=== PATIENT | male | born 1955 | race Caucasian/White ===

== ENCOUNTER 2016-07-27 02:57 | Emergency (ER) | payer OTHER, BC ==
[~2016-07-27] VITALS: Ht 165.1 cm; Wt 65.8 kg
[~2016-07-27 02:57] MED LIST: COR12.5 PO; GABA-533 PO; LISI10TA5 PO
[2016-07-27 03:00] VITALS: BP 84/28; PULSE 88; RESP 14; TEMP 98.9; O2SAT 100
--- NOTE | 2016-07-27 03:19 | NUR ---
ER at bedside examining patient.
--- NOTE | 2016-07-27 03:20 | NUR ---
Pt BIB ambulance from [place] with c/o subternal chestpain, radiated to R shoulder, with difficulty breathing. Pt 99% on 10L mask upon arrival, has 20G IV at R hand. A&Ox4, denies N/V/D, denies dizziness. skin intact, with bruises on Left arm. Will continue to monitor Addendum: 07/27/16 at 0342 by [email or web address] Pt was given aspirin on the field
--- NOTE | 2016-07-27 03:27 | NUR ---
AT BEDSIDE EXAMINING PT
[2016-07-27] MEDS ORDERED: NS 500 ML IV ONE (03:30)
[2016-07-27 04:28] LABS: BASOPHILS % (AUTO) 0.6 % (0.0-2.0); EOSINOPHILS # (AUTO) 0.1 K/uL (0.0-0.4); EOSINOPHILS % (AUTO) 3.7 % (0.0-4.0); HEMATOCRIT 34.3 % (36-54); HEMOGLOBIN 11.3 g/dL (14.0-18.0); LYMPHOCYTES # (AUTO) 0.9 K/uL (1.0-5.5); LYMPHOCYTES % (AUTO) 22.9 % (20.5-51.5); MEAN CORPUSCULAR HEMOGLOBIN 36 pg (27-31); MEAN CORPUSCULAR HGB CONC 33 % (32-36); MEAN CORPUSCULAR VOLUME 109 fL (79.0-98.0); MONOCYTES # (AUTO) 0.3 K/uL (0.0-1.0); MONOCYTES % (AUTO) 7.8 % (1.7-9.3); NEUTROPHILS # (AUTO) 2.7 K/uL (1.8-7.7); PLATELET COUNT (AUTO) 85 K/uL (130-430); RED BLOOD CELL COUNT(AUTO) 3.14 MIL/uL (4.2-6.2); RED CELL DISTRIBUTION WIDTH 18.1 % (9.0-15.0)
[2016-07-27 04:46] LABS: ALBUMIN 3.2 g/dL (3.4-4.8); CALCIUM 8.4 mg/dL (8.4-11.0); CREATININE 1.6 mg/dL (0.55-1.30); POTASSIUM 3.8 mmol/L (3.5-5.1); TOTAL BILIRUBIN 0.7 mg/dL (0.0-1.0)
[2016-07-27 04:54] LABS: PROTHROMBIN TIME 11.3 SECS (9.5-12.5)
--- NOTE | 2016-07-27 05:00 | NUR ---
Pt stated his chest pain is subsided, c/o mild generalized body ache
--- NOTE | 2016-07-27 05:40 | NUR ---
Given report to Lucie moe RN via phone
[2016-07-27 06:40] VITALS: BP 111/75; PULSE 73; RESP 19; TEMP 97.3; O2SAT 95
--- NOTE | 2016-07-27 06:40 | NUR ---
Patient and caregiver given written and verbal discharge instructions and verbalizes understanding. ER MD chan discussed with patient the results and treatment provided. Given copies of tests performed in ER. Patient in stable condition. ID arm band removed. IV catheter removed intact and dressing applied, no active bleeding. No rx given. Patient and caregiver educated on pain management and to follow up with PMD. Pain Scale 0/10 Opportunity for questions provided and answered. Pt accompanied by paramedics to be transported to [facility]
== END 2016-07-27 06:40 | disposition home or self-care (01) ==
LOC: SED 02:57
DX: R07.9 Chest pain, unspecified (principal); D61.818 Other pancytopenia; I50.9 Heart failure, unspecified; I10 Essential (primary) hypertension; Z88.5 Allergy status to narcotic agent
CPT/HCPCS: 36415; 71010; 80053; 83880; 84484; 85025; 85610; 85730; 93005; 99285; J7040

== ENCOUNTER 2016-09-06 19:50 | Emergency (ER) | payer OTHER, BC ==
[~2016-09-06] VITALS: Ht 165.1 cm; Wt 74.8 kg
[2016-09-06 19:56] VITALS: BP_SYST 127
--- NOTE | 2016-09-06 20:00 | NUR ---
PT. IN BED 5, ASSUMED PT. CARE
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
--- NOTE | 2016-09-06 20:49 | NUR ---
DR. FERRER AT BEDSIDE EXAMINING THE PT.
[2016-09-06 21:15] LABS: BASOPHILS # (AUTO) 0.1 K/uL (0.0-0.2); BASOPHILS % (AUTO) 1.3 % (0.0-2.0); EOSINOPHILS # (AUTO) 0.1 K/uL (0.0-0.4); EOSINOPHILS % (AUTO) 1.5 % (0.0-4.0); HEMATOCRIT 35.7 % (36-54); HEMOGLOBIN 12.4 g/dL (14.0-18.0); LYMPHOCYTES # (AUTO) 1.1 K/uL (1.0-5.5); LYMPHOCYTES % (AUTO) 28.7 % (20.5-51.5); MEAN CORPUSCULAR HEMOGLOBIN 40 pg (27-31); MEAN CORPUSCULAR HGB CONC 35 % (32-36); MEAN CORPUSCULAR VOLUME 116 fL (79.0-98.0); MONOCYTES # (AUTO) 0.2 K/uL (0.0-1.0); MONOCYTES % (AUTO) 5.9 % (1.7-9.3); NEUTROPHILS # (AUTO) 2.4 K/uL (1.8-7.7); NEUTROPHILS % (AUTO) 62.6 % (40.0-70.0); PLATELET COUNT (AUTO) 151 K/uL (130-430); RED BLOOD CELL COUNT(AUTO) 3.06 MIL/uL (4.2-6.2); RED CELL DISTRIBUTION WIDTH 16.3 % (9.0-15.0); WHITE BLOOD COUNT (AUTO) 3.9 K/uL (4.8-10.8)
[2016-09-06 21:37] LABS: ANION GAP 10 (5-15); CALCIUM 8.1 mg/dL (8.4-11.0); CHLORIDE 98 mmol/L (98-107); CREATININE 1.58 mg/dL (0.55-1.30); GFR AFRICAN AMERICAN 57 mL/min (>90); GLUCOSE 118 mg/dL (70-99); POTASSIUM 3.6 mmol/L (3.5-5.1); SODIUM SERUM 139 mmol/L (136-145); UREA NITROGEN, BLOOD 12 mg/dL (8-21)
[2016-09-06 21:47] LABS: TOTAL BILIRUBIN 1.4 mg/dL (0.0-1.0)
[2016-09-06 21:48] LABS: ALANINE AMINOTRANSFERASE 104 U/L (12-78); ALBUMIN 4.3 g/dL (3.4-4.8); ASPARTATE AMINOTRANSFERASE 218 U/L (10-37); TOTAL PROTEIN, SERUM 8.5 g/dL (6.4-8.3)
[2016-09-06 22:37] LABS: THYROID STIMULATING HORMONE 83.32 uIu/mL (0.34-4.82)
--- NOTE | 2016-09-06 22:47 | NUR ---
MD Castro at bedside discussing with pt
[2016-09-06 22:57] LABS: BILIRUBIN,URINE 2+ (NEGATIVE); BLOOD, URINE NEGATIVE (NEGATIVE); CLARITY/URINE SL HAZY (CLEAR); COLOR,URINE AMBER (YELLOW); GLUCOSE,URINE NEGATIVE (NEGATIVE); KETONES,URINE 1+ (NEGATIVE); LEUKOCYTE ESTERASE ,URINE NEGATIVE (NEGATIVE); PH,URINE 5.5 (5.0-8.0); PROTEIN URINE 1+ (NEGATIVE)
[2016-09-06 23:10] VITALS: BP_SYST 120
--- NOTE | 2016-09-06 23:10 | NUR ---
Patient given written and verbal discharge instructions and verbalizes understanding. ER MD Castro discussed with patient the results and treatment provided.Patient in stable condition. ID arm band removed. No rx given. Patient educated on pain management and to follow up with PMD. Pain Scale 0/10. Opportunity for questions provided and answered.
[2016-09-06 23:13] LABS: BACTERIA,URINE FEW /HPF (None Seen); RBC,URINE 0-3 /HPF (0-3); WBC,URINE 0-3 /HPF (0-3)
[2016-09-06 23:17] LABS: NITRITE, URINE POSITIVE (NEGATIVE)
== END 2016-09-06 23:10 | disposition home or self-care (01) ==
LOC: SED 19:50
DX: F10.20 Alcohol dependence, uncomplicated (principal); E03.9 Hypothyroidism, unspecified; I50.9 Heart failure, unspecified; I10 Essential (primary) hypertension; Z88.5 Allergy status to narcotic agent
CPT/HCPCS: 36415; 80053; 81000-TC; 84443-TC; 84484; 85025; 99284

== ENCOUNTER 2016-09-09 18:54 | Inpatient (IN) | payer OTHER, BC ==
[~2016-09-09] VITALS: Ht 165.1 cm; Wt 73.0 kg
[2016-09-09 18:54] VITALS: BP_SYST 88
[2016-09-09] MEDS ORDERED: ASPIRIN 81 MG TAB.CHEW PO ONE (19:15)
[2016-09-09 19:16] LABS: BASOPHILS % (AUTO) 0.6 % (0.0-2.0); EOSINOPHILS # (AUTO) 0.1 K/uL (0.0-0.4); EOSINOPHILS % (AUTO) 3.7 % (0.0-4.0); HEMOGLOBIN 10.3 g/dL (14.0-18.0); LYMPHOCYTES # (AUTO) 0.9 K/uL (1.0-5.5); LYMPHOCYTES % (AUTO) 24.1 % (20.5-51.5); MEAN CORPUSCULAR HEMOGLOBIN 41 pg (27-31); MEAN CORPUSCULAR HGB CONC 35 % (32-36); MEAN CORPUSCULAR VOLUME 116 fL (79.0-98.0); MONOCYTES # (AUTO) 0.3 K/uL (0.0-1.0); MONOCYTES % (AUTO) 8.7 % (1.7-9.3); NEUTROPHILS # (AUTO) 2.4 K/uL (1.8-7.7); NEUTROPHILS % (AUTO) 62.9 % (40.0-70.0); PLATELET COUNT (AUTO) 100 K/uL (130-430); RED BLOOD CELL COUNT(AUTO) 2.49 MIL/uL (4.2-6.2); RED CELL DISTRIBUTION WIDTH 16.3 % (9.0-15.0); WHITE BLOOD COUNT (AUTO) 3.7 K/uL (4.8-10.8)
[2016-09-09 19:27] LABS: CALCIUM 8.1 mg/dL (8.4-11.0); CREATININE 1.66 mg/dL (0.55-1.30); POTASSIUM 3.3 mmol/L (3.5-5.1)
[2016-09-09 19:30] LABS: INR 1.1 (0.80-1.20); PROTHROMBIN TIME 12.1 SECS (9.5-12.5)
[2016-09-09 19:31] LABS: ALBUMIN 3.6 g/dL (3.4-4.8); TOTAL BILIRUBIN 2.3 mg/dL (0.0-1.0)
[2016-09-09] MEDS ORDERED: LEVO25TA7 PO (20:33)
[2016-09-09] MEDS ORDERED: AMIO100T4 PO (20:33)
[2016-09-09] MEDS ORDERED: MAG HYDROX/AL HYDROX/SIMETH 30 ML, BELLADONNA ALKALOIDS/PHENOBARB 10 ML, LIDOCAINE VISC... PO ONE ×6 (20:45→21:15)
[2016-09-09] MEDS ORDERED: NS 500 ML IV ONE (20:45)
[2016-09-09] MEDS ORDERED: MAG HYDROX/AL HYDROX/SIMETH 30 ML, LIDOCAINE VISCOUS 2% 15ML (PO) 10 ML, BELLADONNA ALK... PO ONE ×3 (20:45)
[2016-09-09] MEDS ORDERED: cefTRIAXone 1 GM IVPB PREMIX 50 ML IV ONE (21:45)
[2016-09-09 22:53] LABS: BILIRUBIN,URINE 1+ (NEGATIVE); BLOOD, URINE NEGATIVE (NEGATIVE); CLARITY/URINE CLEAR (CLEAR); COLOR,URINE AMBER (YELLOW); GLUCOSE,URINE NEGATIVE (NEGATIVE); KETONES,URINE TRACE (NEGATIVE); LEUKOCYTE ESTERASE ,URINE NEGATIVE (NEGATIVE); NITRITE, URINE NEGATIVE (NEGATIVE); PH,URINE 5.5 (5.0-8.0); PROTEIN URINE TRACE (NEGATIVE)
[2016-09-09] MEDS ORDERED: NACL 0.9% 1,000 ML IV ONE (23:00)
[2016-09-09 23:10] LABS: RBC,URINE 0-3 /HPF (0-3); WBC,URINE 0-3 /HPF (0-3)
[2016-09-09 23:11] LABS: BACTERIA,URINE FEW /HPF (None Seen); MUCUS,URINE 1+ /LPF (None Seen)
[2016-09-10] MEDS ORDERED: PIPERACILLIN/TAZO 3.375 GM in NS 50 ML IV ONE ×2
[2016-09-10] MEDS ORDERED: PIPERACILLIN/TAZOBACTAM 3.375 GM/VIAL (ZOSYN) IV ONE (00:07)
[2016-09-10] MEDS ORDERED: ONDANSETRON HCL 4 MG/2 ML VIAL IVP PRN (00:15)
[2016-09-10 01:09] VITALS: BP_SYST 92
[2016-09-10] MEDS ORDERED: NS 500 ML IV ONE (01:30)
[2016-09-10] MEDS: D5/0.45 NS 1,000 ML IV SCH ×3 (01:52→22:27)
[2016-09-10] MEDS ORDERED: BUSP10TA3 PO (02:33)
[2016-09-10] MEDS ORDERED: SERT50TA12 PO (02:33)
[2016-09-10] MEDS ORDERED: LEVOFLOXACIN 500 MG/D5W 100 ML IV ONE (02:51)
[2016-09-10] MEDS ORDERED: metroNIDAZOLE 500 mg/NS 100 ML IV ONE (02:52)
[2016-09-10] MEDS: LEVOFLOXACIN 500 MG/D5W 100 ML IV SCH (02:53)
[2016-09-10 04:00] VITALS: BP_SYST 116
[2016-09-10] MEDS: metroNIDAZOLE 500 mg/NS 100 ML IV SCH ×3 (04:17→17:15)
[2016-09-10 07:19] LABS: HEMATOCRIT 28.4 % (36-54); HEMOGLOBIN 9.6 g/dL (14.0-18.0); MEAN CORPUSCULAR HEMOGLOBIN 41 pg (27-31); MEAN CORPUSCULAR HGB CONC 34 % (32-36); MEAN CORPUSCULAR VOLUME 119 fL (79.0-98.0); PLATELET COUNT (AUTO) 87 K/uL (130-430); RED BLOOD CELL COUNT(AUTO) 2.38 MIL/uL (4.2-6.2); WHITE BLOOD COUNT (AUTO) 2.7 K/uL (4.8-10.8)
[2016-09-10 07:36] LABS: CALCIUM 7.4 mg/dL (8.4-11.0); CREATININE 1.34 mg/dL (0.55-1.30); POTASSIUM 3.1 mmol/L (3.5-5.1)
[2016-09-10 07:41] LABS: ALBUMIN 3.1 g/dL (3.4-4.8); TOTAL BILIRUBIN 2.6 mg/dL (0.0-1.0); TOTAL PROTEIN, SERUM 6.2 g/dL (6.4-8.3)
[2016-09-10 07:50] LABS: BASOPHILS % (MANUAL) 0 % (0-2); EOSINOPHILS % (MANUAL) 2 % (0-7); LYMPHOCYTES % (MANUAL) 35 % (20-46); MONOCYTES % (MANUAL) 8 % (0-11)
[2016-09-10 08:00] VITALS: BP_SYST 89
[2016-09-10] MEDS: GABAPENTIN 300 MG CAPSULE PO SCH ×3 (08:15→21:10)
[2016-09-10] MEDS ORDERED: LEVOTHYROXINE SODIUM 0.05 MG TABLET PO SCH (09:00)
[2016-09-10] MEDS ORDERED: PANTOPRAZOLE SODIUM 40 MG/VIAL (PROTONIX) IVP SCH (09:00)
[2016-09-10] MEDS ORDERED: DIATR MEGLU/DIATRIZ SOD 30 ML SOLUTION PO ONE (10:40)
[2016-09-10 10:56] LABS: THYROID STIMULATING HORMONE 79.94 uIu/mL (0.36-3.74)
[2016-09-10 12:00] VITALS: BP_SYST 98
[2016-09-10] MEDS ORDERED: PANTOPRAZOLE SODIUM 40 MG TAB PO ONE (15:00)
[2016-09-10] MEDS ORDERED: KCL 40 mEq in 100 mL (PREMIX) 100 ML IV ONE (15:00)
[2016-09-10 15:06] VITALS: BP_SYST 102
[2016-09-10] MEDS ORDERED: POTASSIUM CHLORIDE 40 MEQ in NS 250 ML IV ONE (15:10)
[2016-09-10 19:05] LABS: INR 1.1 (0.80-1.20)
[2016-09-10 19:21] LABS: IRON (SERUM) 45 mcg/dL (59-158); TOTAL IRON BIND. CAPACITY 221 ug/dL (250-450)
[2016-09-10 20:00] VITALS: BP_SYST 110
[2016-09-10] MEDS ORDERED: LEVOTHYROXINE SODIUM 0.1 MG TABLET PO ONE (20:45)
[2016-09-11] MEDS: LEVOFLOXACIN 500 MG/D5W 100 ML IV SCH (00:25)
[2016-09-11 00:30] VITALS: BP_SYST 112
[2016-09-11] MEDS: metroNIDAZOLE 500 mg/NS 100 ML IV SCH ×2 (02:08→10:00)
[2016-09-11 04:18] VITALS: BP_SYST 114
[2016-09-11] MEDS: LEVOTHYROXINE SODIUM 0.1 MG TABLET PO SCH ×2 (06:21→06:23)
[2016-09-11 07:30] LABS: ALBUMIN 3.4 g/dL (3.4-4.8); BILIRUBIN,DIRECT 1.4 mg/dL (0.0-0.3); TOTAL BILIRUBIN 1.9 mg/dL (0.0-1.0); TOTAL PROTEIN, SERUM 6.7 g/dL (6.4-8.3)
[2016-09-11 08:00] VITALS: BP_SYST 130
[2016-09-11] MEDS: GABAPENTIN 300 MG CAPSULE PO SCH (08:55)
[2016-09-11] MEDS ORDERED: PANTOPRAZOLE SODIUM 40 MG TAB PO SCH (09:00)
[2016-09-11 09:25] LABS: BASOPHILS % (AUTO) 0.8 % (0.0-2.0); EOSINOPHILS # (AUTO) 0.1 K/uL (0.0-0.4); EOSINOPHILS % (AUTO) 5.1 % (0.0-4.0); HEMATOCRIT 31.9 % (36-54); HEMOGLOBIN 10.5 g/dL (14.0-18.0); LYMPHOCYTES # (AUTO) 0.7 K/uL (1.0-5.5); LYMPHOCYTES % (AUTO) 26.9 % (20.5-51.5); MEAN CORPUSCULAR HEMOGLOBIN 39 pg (27-31); MEAN CORPUSCULAR HGB CONC 33 % (32-36); MEAN CORPUSCULAR VOLUME 119 fL (79.0-98.0); MONOCYTES # (AUTO) 0.4 K/uL (0.0-1.0); MONOCYTES % (AUTO) 15.2 % (1.7-9.3); NEUTROPHILS # (AUTO) 1.2 K/uL (1.8-7.7); PLATELET COUNT (AUTO) 124 K/uL (130-430); RED BLOOD CELL COUNT(AUTO) 2.68 MIL/uL (4.2-6.2); RED CELL DISTRIBUTION WIDTH 17.1 % (9.0-15.0); WHITE BLOOD COUNT (AUTO) 2.5 K/uL (4.8-10.8)
[2016-09-11 10:01] LABS: CALCIUM 7.4 mg/dL (8.4-11.0); CREATININE 1.11 mg/dL (0.55-1.30); POTASSIUM 3.7 mmol/L (3.5-5.1)
[2016-09-11] MEDS: D5/0.45 NS 1,000 ML IV SCH (10:39)
[2016-09-11 12:00] VITALS: BP_SYST 130
[2016-09-11 15:28] VITALS: BP_SYST 131
[2016-09-12 10:09] LABS: HEPATITIS A AB, IgM Negative (Negative); HEPATITIS B CORE AB, IgM Negative (Negative); HEPATITIS B SURFACE AG Negative (Negative)
[2016-09-12 12:07] LABS: AFP, TUMOR MARKER 5.9 ng/mL (0.0-8.3)
[2016-09-12 14:50] LABS: FERRITIN 1326 ng/mL (30-400)
== END 2016-09-11 16:50 | disposition home or self-care (01) | DRG 445 ==
LOC: SED 18:54 → STU 09-10 00:11 → SMU 09-11 13:16
PROVIDERS: ATTEND Internal Medicine Hospice and Palliative Medicine
DX: K80.20 Calculus of gallbladder without cholecystitis without obstruction (principal); I42.6 Alcoholic cardiomyopathy; D61.818 Other pancytopenia; E03.9 Hypothyroidism, unspecified; I11.0 Hypertensive heart disease with heart failure; I50.9 Heart failure, unspecified; F10.10 Alcohol abuse, uncomplicated; K76.0 Fatty (change of) liver, not elsewhere classified; E66.9 Obesity, unspecified; Z88.5 Allergy status to narcotic agent; Z79.899 Other long term (current) drug therapy; Z95.810 Presence of automatic (implantable) cardiac defibrillator; Z68.26 Body mass index [BMI] 26.0-26.9, adult; Z91.19 Patient's noncompliance with other medical treatment and regimen
CPT/HCPCS: 36415; 71010; 76700-TC; 78226; 80048; 80053; 80074; 80076; 81000-TC; 82103; 82105; 82390; 82550-TC; 82607; 82728; 82746; 83516; 83540-TC; 83550-TC; 83605; 83690-TC; 83735-TC; 83880; 84100-TC; 84443-TC; 84484; 85007; 85025; 85027; 85384-TC; 85610-TC; 85730-TC; 86376; 87040-TC; 93005; 96361; 96365; 99285; A9537; C9113; G0482; J0696; J1956; J2001; J2405; J2543; J3480; J3490; J7030; J7040; J7050; Q9964

== ENCOUNTER 2016-12-18 00:43 | Emergency (ER) | payer BC, OTHER ==
[~2016-12-18] VITALS: Ht 157.5 cm; Wt 68.0 kg
[2016-12-18 00:43] VITALS: BP_SYST 114
[~2016-12-18 00:43] MED LIST changes: +AMIO100T4 PO; +BUSP10TA3 PO; +SERT50TA12 PO
[2016-12-18 02:05] VITALS: BP_SYST 122
== END 2016-12-18 02:10 | disposition left against medical advice (07) ==
LOC: SED 00:43
DX: Z00.00 Encounter for general adult medical examination without abnormal findings (principal); I50.9 Heart failure, unspecified; E03.9 Hypothyroidism, unspecified; I10 Essential (primary) hypertension; Z88.5 Allergy status to narcotic agent
CPT/HCPCS: 99281

== ENCOUNTER 2017-01-13 08:25 | Emergency (ER) | payer BC ==
[~2017-01-13] VITALS: Ht 157.5 cm; Wt 63.5 kg
[2017-01-13 08:25] VITALS: BP_SYST 109
[2017-01-13] MEDS ORDERED: BACITRACIN 1 GM OINT TP ONE (08:30)
[2017-01-13] MEDS ORDERED: LIDOCAINE/EPI 1% 1:100000 20 ML VIAL IJ ONE (08:30)
[2017-01-13] MEDS ORDERED: DIPH-TET-PERTUS Vaccine 0.5 ML VIAL (ADACEL) IM ONE (08:30)
[2017-01-13] MEDS ORDERED: CEPHALEXIN 500 MG CAPSULE PO ONE (08:45)
--- NOTE | 2017-01-13 08:50 | NUR ---
Patient placed to bed 4, gown on, clinical research monitor, pulse ox and bp cuff placed.
--- NOTE | 2017-01-13 08:55 | NUR ---
Patient brought by ambulance from home for trip and fall. Upon arrival, patient awake,alert and oriented x4, complaining of pain to the right wrist and forhead. Superficial abrasions to left elbow, face and nose. No active bleeding noted. Patient states he was walking in his bedroom this AM, had a nose bleed, then tripped and fell on the corner of his bed. He states he did not lose consiousness. Patient is able to move all extermities, cranial nerves intact. No other complaints/injuries per patient, none noted.
--- NOTE | 2017-01-13 09:10 | NUR ---
Dr. Tejada at bedside examining patient.
[2017-01-13] MEDS ORDERED: LIDOCAINE/EPI 2% 1:100000 20 ML VIAL INJ ONE (09:11)
[2017-01-13 09:12] LABS: CALCIUM 8.5 mg/dL (8.4-11.0); CREATININE 1.03 mg/dL (0.55-1.30); POTASSIUM 3.1 mmol/L (3.5-5.1)
[2017-01-13 09:20] LABS: BASOPHILS % (AUTO) 0.7 % (0.0-2.0); EOSINOPHILS # (AUTO) 0.1 K/uL (0.0-0.4); EOSINOPHILS % (AUTO) 3.5 % (0.0-4.0); HEMATOCRIT 36.9 % (36-54); HEMOGLOBIN 12.6 g/dL (14.0-18.0); LYMPHOCYTES # (AUTO) 1.4 K/uL (1.0-5.5); LYMPHOCYTES % (AUTO) 32.3 % (20.5-51.5); MEAN CORPUSCULAR HEMOGLOBIN 40 pg (27-31); MEAN CORPUSCULAR HGB CONC 34 % (32-36); MEAN CORPUSCULAR VOLUME 116 fL (79.0-98.0); MONOCYTES # (AUTO) 0.3 K/uL (0.0-1.0); MONOCYTES % (AUTO) 8.3 % (1.7-9.3); NEUTROPHILS # (AUTO) 2.4 K/uL (1.8-7.7); NEUTROPHILS % (AUTO) 55.2 % (40.0-70.0); PLATELET COUNT (AUTO) 112 K/uL (130-430); RED BLOOD CELL COUNT(AUTO) 3.19 MIL/uL (4.2-6.2); RED CELL DISTRIBUTION WIDTH 13.1 % (9.0-15.0); WHITE BLOOD COUNT (AUTO) 4.2 K/uL (4.8-10.8)
[2017-01-13] MEDS ORDERED: POTASSIUM CHLORIDE 20 MEQ TAB.PRT.SR PO ONE (09:45)
--- NOTE | 2017-01-13 10:40 | NUR ---
Dr. Tejada at bedside performing wound repair. Patient tolerated well. No bleed noted. No signs of distress, vss.
--- NOTE | 2017-01-13 10:50 | NUR ---
Radiology at bedside for right wrist xray.
[2017-01-13 11:45] VITALS: BP_SYST 158
--- NOTE | 2017-01-13 11:50 | NUR ---
Patient safety maintained, discharged via wheel chair. No incident of falls.
--- NOTE | 2017-01-13 11:50 | NUR ---
Patient given written and verbal discharge instructions and verbalizes understanding. ER MD discussed with patient the results and treatment provided. Patient in stable condition. ID arm band removed. IV catheter removed intact and dressing applied, no active bleeding. Rx of Keflex abd Motrin given. Patient educated on pain management and to follow up with PMD. Pain Scale 2/10. Opportunity for questions provided and answered.
== END 2017-01-13 11:50 | disposition home or self-care (01) ==
LOC: SED 08:25
DX: S01.21XA Laceration without foreign body of nose, initial encounter (principal); S01.112A Laceration without foreign body of left eyelid and periocular area, initial encounter; S50.312A Abrasion of left elbow, initial encounter; S09.90XA Unspecified injury of head, initial encounter; M25.531 Pain in right wrist; I11.0 Hypertensive heart disease with heart failure; I50.9 Heart failure, unspecified; E03.9 Hypothyroidism, unspecified; Z88.5 Allergy status to narcotic agent; Z79.899 Other long term (current) drug therapy; W18.09XA Striking against other object with subsequent fall, initial encounter; Y93.89 Activity, other specified; Y92.89 Other specified places as the place of occurrence of the external cause; Y99.8 Other external cause status
CPT/HCPCS: 12011; 29125; 36415; 70450; 70486; 73080; 73090; 73110; 80048; 84443; 84484; 85025; 85610; 85730; 90471; 90715; 93005; 99285; G0482

== ENCOUNTER 2017-02-03 11:34 | Emergency (ER) | payer BC ==
[~2017-02-03] VITALS: Ht 165.1 cm; Wt 68.0 kg
[2017-02-03 11:40] VITALS: BP_SYST 98
[2017-02-03] MEDS ORDERED: KETOROLAC TROMETHAMINE 30 MG VIAL IM ONE (11:45)
[2017-02-03 12:37] LABS: BASOPHILS % (AUTO) 0.5 % (0.0-2.0); EOSINOPHILS # (AUTO) 0.1 K/uL (0.0-0.4); HEMATOCRIT 36.1 % (36-54); HEMOGLOBIN 12.1 g/dL (14.0-18.0); LYMPHOCYTES # (AUTO) 1.1 K/uL (1.0-5.5); MEAN CORPUSCULAR HEMOGLOBIN 40 pg (27-31); MEAN CORPUSCULAR HGB CONC 34 % (32-36); MEAN CORPUSCULAR VOLUME 118 fL (79.0-98.0); MONOCYTES # (AUTO) 0.5 K/uL (0.0-1.0); MONOCYTES % (AUTO) 8.8 % (1.7-9.3); NEUTROPHILS # (AUTO) 4.2 K/uL (1.8-7.7); NEUTROPHILS % (AUTO) 69.7 % (40.0-70.0); PLATELET COUNT (AUTO) 200 K/uL (130-430); RED BLOOD CELL COUNT(AUTO) 3.07 MIL/uL (4.2-6.2); RED CELL DISTRIBUTION WIDTH 13.7 % (9.0-15.0); WHITE BLOOD COUNT (AUTO) 5.9 K/uL (4.8-10.8)
[2017-02-03 13:14] LABS: ALBUMIN 3.1 g/dL (3.4-4.8); CALCIUM 7.9 mg/dL (8.4-11.0); CREATININE 0.86 mg/dL (0.55-1.30); POTASSIUM 3.4 mmol/L (3.5-5.1); TOTAL BILIRUBIN 2.4 mg/dL (0.0-1.0)
[2017-02-03] MEDS ORDERED: LEVO100T9 PO (14:42)
[2017-02-03] MEDS ORDERED: GABA-533 PO (14:42)
[2017-02-03] MEDS ORDERED: FAMOTIDINE PF 20 MG/2 ML VIAL IVP ONE (15:30)
[2017-02-03 15:37] LABS: PROTHROMBIN TIME 10.8 SECS (9.5-12.5)
[2017-02-03] MEDS ORDERED: ACETAMINOPHEN 325 MG TABLET PO PRN (15:45)
[2017-02-03] MEDS ORDERED: LR 1,000 ML IV ONE (15:45)
[2017-02-03] MEDS ORDERED: ONDANSETRON HCL 4 MG/2 ML VIAL IVP PRN (15:45)
[2017-02-03] MEDS ORDERED: PIPERACILLIN/TAZO 3.375/DEX-IS 50 ML IV SCH (18:00)
[2017-02-03] MEDS ORDERED: NORMAL SALINE 5 ML DISP.SYRIN IVF SCH (22:00)
== END 2017-02-03 17:17 | disposition left against medical advice (07) ==
LOC: SED 11:34 → SMU 15:41 → UNDOADMIN 15:41 → SMU 16:06 → UNDODISIN 17:17 → SMU 17:17
DX: K81.0 Acute cholecystitis (principal); I11.0 Hypertensive heart disease with heart failure; I50.9 Heart failure, unspecified; E03.9 Hypothyroidism, unspecified; F10.10 Alcohol abuse, uncomplicated; Y90.8 Blood alcohol level of 240 mg/100 ml or more; Z88.5 Allergy status to narcotic agent
CPT/HCPCS: 36415; 76700; 80053; 83690; 85025; 85610; 85730; 96372; 96374; 99285; G0482; J1885; J3490; J2543

== ENCOUNTER 2017-05-09 10:01 | Emergency (ER) | payer BC ==
[~2017-05-09] VITALS: Ht 165.1 cm; Wt 65.8 kg
[~2017-05-09 10:01] MED LIST changes: -BUSP10TA3 PO; +LEVO100T9 PO; -LISI10TA5 PO; -SERT50TA12 PO
[2017-05-09 10:04] VITALS: BP_SYST 123
[2017-05-09 11:08] LABS: HEMATOCRIT 35.1 % (36-54); MEAN CORPUSCULAR HEMOGLOBIN 41 pg (27-31); MEAN CORPUSCULAR HGB CONC 34 % (32-36); MEAN CORPUSCULAR VOLUME 119 fL (79.0-98.0); PLATELET COUNT (AUTO) 123 K/uL (130-430); RED BLOOD CELL COUNT(AUTO) 2.95 MIL/uL (4.2-6.2); RED CELL DISTRIBUTION WIDTH 15.8 % (9.0-15.0); WHITE BLOOD COUNT (AUTO) 3.9 K/uL (4.8-10.8)
[2017-05-09 11:22] LABS: CALCIUM 8.5 mg/dL (8.4-11.0); CREATININE 0.91 mg/dL (0.55-1.30); POTASSIUM 3.8 mmol/L (3.5-5.1)
[2017-05-09 11:24] LABS: INR 1.1 (0.80-1.20); PROTHROMBIN TIME 10.8 SECS (9.5-12.5)
[2017-05-09 11:26] LABS: ALBUMIN 3.2 g/dL (3.4-4.8)
[2017-05-09 11:30] LABS: BASOPHILS % (MANUAL) 0 % (0-2); EOSINOPHILS % (MANUAL) 4 % (0-7); LYMPHOCYTES % (MANUAL) 23 % (20-46); MONOCYTES % (MANUAL) 11 % (0-11)
[2017-05-09] MEDS ORDERED: NEPHROVITE, (FOLIC ACID/VITAMIN B COMP W-C 1 TAB) PO ONE (12:00)
[2017-05-09] MEDS ORDERED: BACITRACIN 1 GM OINT TP ONE (12:24)
[2017-05-09 12:30] VITALS: BP_SYST 118
== END 2017-05-09 12:30 | disposition home or self-care (01) ==
LOC: SED 10:01
DX: L98.9 Disorder of the skin and subcutaneous tissue, unspecified (principal); G11.9 Hereditary ataxia, unspecified; D52.9 Folate deficiency anemia, unspecified; E03.9 Hypothyroidism, unspecified; I10 Essential (primary) hypertension; Z88.5 Allergy status to narcotic agent
CPT/HCPCS: 36415; 80053; 83605; 85007; 85027; 85610-TC; 85730-TC; 87040-TC; 87070-TC; 87186-TC; 99284

== ENCOUNTER 2017-06-04 21:22 | Emergency (ER) | payer BC ==
[~2017-06-04] VITALS: Ht 165.1 cm; Wt 66.2 kg
[2017-06-04 21:25] VITALS: BP_SYST 140
[2017-06-04 22:56] LABS: BILIRUBIN,URINE NEGATIVE (NEGATIVE); BLOOD, URINE NEGATIVE (NEGATIVE); CLARITY/URINE CLEAR (CLEAR); COLOR,URINE YELLOW (YELLOW); GLUCOSE,URINE NEGATIVE (NEGATIVE); KETONES,URINE NEGATIVE (NEGATIVE); LEUKOCYTE ESTERASE ,URINE NEGATIVE (NEGATIVE); NITRITE, URINE NEGATIVE (NEGATIVE); PROTEIN URINE NEGATIVE (NEGATIVE)
[2017-06-05] MEDS ORDERED: KETOROLAC TROMETHAMINE 60 MG/2 ML VIAL IM ONE (00:15)
[2017-06-05 00:53] VITALS: BP_SYST 140
== END 2017-06-05 00:53 | disposition home or self-care (01) ==
LOC: SED 21:22
DX: M54.32 Sciatica, left side (principal); I10 Essential (primary) hypertension; E03.9 Hypothyroidism, unspecified; I42.9 Cardiomyopathy, unspecified; Z88.5 Allergy status to narcotic agent; Z87.442 Personal history of urinary calculi
CPT/HCPCS: 74176; 81003; 96372; 99285; J1885

== ENCOUNTER 2019-02-12 06:40 | Day surgery (SDC) | payer BC ==
[~2019-02-12] VITALS: Ht 165.1 cm; Wt 65.8 kg
[2019-02-12] MEDS ORDERED: CEFAZOLIN SOD 2 GM in D5W 50 ML IV ONE (07:00)
[2019-02-12] MEDS ORDERED: fentaNYL CITRATE/PF 100 MCG/2 ML AMP IVP PRN ×2 (08:45)
[2019-02-12] MEDS ORDERED: SEVOFLURANE 15 MIN GAS INH ONE (09:02)
[2019-02-12] MEDS ORDERED: BUPIVACAINE LIPOSOME/PF 266 MG/20 ML VIAL INFIL ONE ×2 (09:02→10:02)
[2019-02-12] MEDS ORDERED: CEFAZOLIN 2 GM IVPB PREMIX 50 ML IV ONE (09:02)
[2019-02-12] MEDS ORDERED: fentaNYL CITRATE/PF 100 MCG/2 ML AMP IVP ONE (09:02)
[2019-02-12] MEDS ORDERED: PROPOFOL 200MG/ 20ML VIAL (DIPRIVAN) IV ONE (09:02)
[2019-02-12] MEDS ORDERED: MIDAZOLAM HCL 5 MG/5 ML VIAL IVP ONE (09:02)
[2019-02-12] MEDS ORDERED: KETOROLAC TROMETHAMINE 30 MG VIAL IVP ONE (09:02)
[2019-02-12] MEDS ORDERED: LR 1,000 ML IV.SOLN IV ONE (09:02)
[2019-02-12] MEDS ORDERED: NS IRRIG SOLN 1000 ML IR ONE (09:02)
[2019-02-12] MEDS ORDERED: ONDANSETRON HCL 4 MG/2 ML VIAL IVP ONE (09:02)
[2019-02-12] MEDS ORDERED: BUPIVACAINE /PF 0.25% 30 ML VIAL INJ ONE (09:02)
[2019-02-12] MEDS ORDERED: POLYMYXIN 500,000/BACIT.10,000 UNITS in NS IRR 1 L IR ONE (10:41)
[2019-02-12] MEDS ORDERED: traMADol HCL HCL 50 MG TABLET (ULTRAM) PO PRN (11:45)
[2019-02-12] MEDS ORDERED: CEFAZOLIN SOD 2 GM in D5W 50 ML IV SCH (14:00)
[2019-02-12 16:12] VITALS: BP_SYST 116
== END 2019-02-12 13:15 | disposition home or self-care (01) ==
LOC: SDS 06:40 → SMU 06:40 → EDSTATUS 09:00 → SDS 13:15
PROVIDERS: ATTEND Surgery
DX: K40.90 Unilateral inguinal hernia, without obstruction or gangrene, not specified as recurrent (principal); D17.6 Benign lipomatous neoplasm of spermatic cord; Z98.890 Other specified postprocedural states
CPT/HCPCS: 49505; 88304; C1781; C9290; J0690 ×2; J1885; J2250; J2405; J2704; J3010; J3490; J7060; J7120; 88302

== ENCOUNTER 2019-10-16 23:27 | Inpatient (IN) | payer BC ==
[~2019-10-16] VITALS: Ht 167.6 cm; Wt 68.0 kg
[2019-10-16 23:27] VITALS: BP_SYST 115
--- NOTE | 2019-10-16 23:30 | NUR ---
Patient to ER bed 05 to gown for evaluation. Side rails up. Report given to DEMETRIUS Inman.
--- NOTE | 2019-10-16 23:31 | NUR ---
Patient came to ER. C/O nausea,vomitting,epigastric pain x 1 day. Patient states "vomitting x 4 episodes, throat pain and epigastric pain, no diarrhea." A/O,X4, Epigastric pain, burning pain, pain rate 4/10, throat, no SOB, internal defib left chest, HR 120. Hx HTN, Hypothyroid, unknown heart problem (per patient).
--- NOTE | 2019-10-16 23:35 | NUR ---
GALEN Woodall at bedside examining patient.
--- NOTE | 2019-10-16 23:40 | NUR ---
X-ray at bedside.
[2019-10-16] MEDS ORDERED: NACL 0.9% 1,000 ML IV ONE (23:45)
[2019-10-16] MEDS ORDERED: KETOROLAC TROMETHAMINE 30 MG VIAL IVP ONE (23:45)
[2019-10-16] MEDS ORDERED: ONDANSETRON HCL 4 MG/2 ML VIAL IVP ONE (23:45)
[2019-10-16 23:58] LABS: BILIRUBIN,URINE 2+ (NEGATIVE); BLOOD, URINE NEGATIVE (NEGATIVE); CLARITY/URINE CLEAR (CLEAR); COLOR,URINE BROWN (YELLOW); GLUCOSE,URINE NEGATIVE (NEGATIVE); KETONES,URINE 1+ (NEGATIVE); LEUKOCYTE ESTERASE ,URINE NEGATIVE (NEGATIVE); NITRITE, URINE NEGATIVE (NEGATIVE); PROTEIN URINE TRACE (NEGATIVE)
[2019-10-17] VITALS (8 sets, daily range): BP systolic 106–150
[2019-10-17 00:01] LABS: UROBILINOGEN,URINE >=8 (0.2-1.0)
[2019-10-17 00:05] LABS: BACTERIA,URINE FEW /HPF (None Seen); RBC,URINE 0-3 /HPF (0-3)
[2019-10-17 00:19] LABS: BASOPHILS # (AUTO) 0.2 K/uL (0.0-0.2); HEMATOCRIT 40.5 % (36-54); HEMOGLOBIN 13.5 g/dL (14.0-18.0); LYMPHOCYTES # (AUTO) 0.9 K/uL (1.0-5.5); LYMPHOCYTES % (AUTO) 14.6 % (20.5-51.5); MEAN CORPUSCULAR HEMOGLOBIN 39 pg (27-31); MEAN CORPUSCULAR HGB CONC 33 % (32-36); MEAN CORPUSCULAR VOLUME 117 fL (79.0-98.0); MONOCYTES # (AUTO) 0.6 K/uL (0.0-1.0); MONOCYTES % (AUTO) 9.6 % (1.7-9.3); NEUTROPHILS # (AUTO) 4.3 K/uL (1.8-7.7); NEUTROPHILS % (AUTO) 72.8 % (40.0-70.0); PLATELET COUNT (AUTO) 115 K/uL (130-430); RED BLOOD CELL COUNT(AUTO) 3.45 MIL/uL (4.2-6.2); RED CELL DISTRIBUTION WIDTH 16.3 % (9.0-15.0); WHITE BLOOD COUNT (AUTO) 5.9 K/uL (4.8-10.8)
[2019-10-17 00:21] LABS: ANION GAP 36 (5-15); CHLORIDE 89 mmol/L (98-107); CREATININE 2.16 mg/dL (0.55-1.30); GLUCOSE 157 mg/dL (70-99); POTASSIUM 4.7 mmol/L (3.5-5.1); SODIUM SERUM 137 mmol/L (136-145); UREA NITROGEN, BLOOD 24 mg/dL (8-21)
[2019-10-17 00:27] LABS: BARBITURATE, URINE NEGATIVE (NEG <=200); BENZODIAZEPINE, URINE NEGATIVE (NEG <=150); CANNABINOID, URINE NEGATIVE (NEG <=50); COCAINE, URINE NEGATIVE (NEG <=150); METHAMPHETAMINES SCREEN,URINE NEGATIVE (NEG <=500); OPIATE, URINE NEGATIVE (NEG <=100); PHENCYCLIDINE SCREEN,URINE NEGATIVE (NEG <=25); UR TRICYCLIC ANTIDEPRESSANTS NEGATIVE (NEG <=300); URINE AMPHETAMINE NEGATIVE (NEG <=500); URINE METHADONE NEGATIVE (NEG <=200); URINE OXYCODONE SCREEN NEGATIVE (NEG <=100); URINE PROPOXYPHENE SCREEN NEGATIVE (NEG <=300)
[2019-10-17 00:29] LABS: ALANINE AMINOTRANSFERASE 82 U/L (12-78); ALBUMIN 3.8 g/dL (3.4-4.8); ASPARTATE AMINOTRANSFERASE 211 U/L (10-37); LIPASE 1108 U/L (73-393); TOTAL BILIRUBIN 2.6 mg/dL (0.0-1.0)
[2019-10-17] MEDS ORDERED: PROCHLORPERAZINE EDISYLATE 10 MG/2 ML VIAL IVP ONE (00:30)
[2019-10-17 00:31] LABS: CALCIUM 6.9 mg/dL (8.4-11.0); GFR AFRICAN AMERICAN 40 mL/min (>90)
[2019-10-17] MEDS ORDERED: LORazepam 2 MG/ML VIAL IVP ONE (00:45)
[2019-10-17] MEDS ORDERED: NACL 0.9% 1,000 ML IV ONE (01:00)
[2019-10-17] MEDS ORDERED: FOLIC ACID 5 MG/ML VIAL IV ONE (01:00)
[2019-10-17] MEDS ORDERED: CALCIUM CHLORIDE 1 GM in NS 100 ML IV ONE ×3 (01:00→08:00)
[2019-10-17] MEDS ORDERED: THIAMINE HCL 100 MG/ML VIAL IM ONE (01:00)
--- NOTE | 2019-10-17 01:29 | NUR ---
Patient will be admitted to care of . Admitted to Tele unit. Will go to room 103B. Belongings list completed. Complete and up to date summary report printed. SBAR report to be given at bedside with opportunity for questions.
--- NOTE | 2019-10-17 01:40 | NUR ---
ADMISSION NOTE Received patient from ER via gurney. Patient admitted with diagnosis of ALCOHOL WITHDRAW. Patient is awake, alert, oriented X 4. Patient oriented to hospital room, call light, toileting, pain management and safety-teach back done. Patient informed that ROHIT (EVITA) will be HIS nurse and that their room number is 103B. Personal belongings checked and Belongings List documented. Call light within reach.
--- NOTE | 2019-10-17 01:48 | NUR ---
Transfer to Tele via ACLS protocol. Licensed nurse present. IV present no signs or symptoms of infiltration.
--- NOTE | 2019-10-17 02:10 | NUR ---
ADMIT NOTE: ADMIT DX- ETOH WITHDRAW AND PANCREATITIS. RECEIVED PATIENT FROM ER, AAOX4, SKIN W/D TO TOUCH, FLUSHED, R AND L ARMS W/ ECCHYMOSIS, AND SKIN TEARS 2NDRY TO THYROID DIS AND MEDS. PT BELONGINGS SHEET COMPLETED W/ RESOURCE RN AND PATIENT AT BEDSIDE. PERSONAL LIST BELONGING SIGNED BY PATIENT. NAD NOTED.
[2019-10-17] MEDS ORDERED: FOLIC ACID 1 MG, THIAMINE HCL 100 MG, MAGNESIUM SULFATE 1 GM, MVI 10 ML in NACL 0.9% 1,... IV SCH (04:30)
[2019-10-17] MEDS ORDERED: cefTRIAXone 1 GM in D5W 50 ML IV SCH (04:30)
[2019-10-17] MEDS ORDERED: ALBUTEROL SULFATE 0.083% 2.5 MG/3 ML VIAL.NEB INH PRN (04:30)
--- NOTE | 2019-10-17 04:50 | NUR ---
Pt AWAKE , ALERT, PLEASANTLY CONFUSED, W/ CONT. RE-DIRECTION, ABLE TO FOLLOW SIMPLE COMMANDS. PT IS PERSEVERATING THAT HIS HAS 3 BOOKS HE NEEDS. 0400 VS DONE WNL T 97.1, P 101, RR 18, BP 127/78, PO2 96%. . ADMISSION PHYSICAL ASSESSMENT COMPLETED.
--- NOTE | 2019-10-17 05:12 | NUR ---
CONSULT: CONSULT CALLED FOR DR. INGRAM I SPOKE WITH QUOC LEON REASON FOR CONSULT: ALCOHOLISM REQUESTING CONSULT: DR. HORTON NIB ADJUSTER PHONE NUMBER: [phone]
--- NOTE | 2019-10-17 05:14 | NUR ---
CONSULT: CONSULT CALLED FOR DR. CASPER I SPOKE WITH QUOC LEON REASON FOR CONSULT: GI BLEED REQUESTING CONSULT: DR. HORTON PERSONAL PROTECTION SPECIALIST PHONE NUMBER: [phone]
--- NOTE | 2019-10-17 06:27 | NUR ---
R AC IV INFILTRATED, IV REMOVED WITH CATH TIP INTACT. NEW IV SITE R LOWER ARM 20G, SITE W/O S/S OF INFILTRATION, OCCLUSIVE DRESSING DRY AND INTACT. Pt TOLERATED WELL. AM MEDS PENDING PHARMACY DELIVERY.
[2019-10-17] MEDS ORDERED: CALCIUM CHLORIDE 1 GM/10ML VIAL (13.6 mEq Ca++/VIAL) ONE (06:33)
[2019-10-17] MEDS ORDERED: PIPERACILLIN/TAZOBACTAM 3.375 GM/VIAL (ZOSYN) IV ONE (06:34)
[2019-10-17] MEDS ORDERED: cefTRIAXone 1 GM VIAL ONE (06:34)
[2019-10-17] MEDS: PIPERACILLIN/TAZO 3.375/DEX-IS 50 ML IV SCH ×4 (07:02→23:26)
[2019-10-17] MEDS: NACL 0.9% 1,000 ML IV SCH ×2 (07:03→14:22)
[2019-10-17] MEDS: ONDANSETRON HCL 4 MG/2 ML VIAL IVP PRN ×2 (07:05→23:36)
--- NOTE | 2019-10-17 07:34 | NUR ---
REPORT TO 7AM RN. MED PAS ON AVAIL MEDS- ZOSYN AND NORMAL SALINE IV INFUSING, OTHER AM IV MEDS ENDORSED TO 0700 RN IN REPORT. PT W/ C/O N/V-ZOFRAN GIVEN IVP. AT PRESENT SITTING IN BED VOICES NO OTHER COMPLAINT RELIEVED FROM N/V.
--- NOTE | 2019-10-17 07:38 | NUR ---
CONSULT GI NV,GI BLEED DR LAI [phone] DR MILLAN RETAIL SHIFT MANAGER S/W SUKHDEEP EXCHANGE
--- NOTE | 2019-10-17 08:00 | NUR ---
am notes received pt in bed. a/ox3. denies any pain or orther discomfort. vitals stable. not in acute distress. res even and unlabored. iv infusing well. no s/s of infiltration noted. safety and fall precautions in place.kept comfortable. needs attended. will continue to monitor
[2019-10-17 08:14] LABS: BASOPHILS % (AUTO) 0.4 % (0.0-2.0); EOSINOPHILS % (AUTO) 0.1 % (0.0-4.0); HEMATOCRIT 38.1 % (36-54); LYMPHOCYTES # (AUTO) 0.7 K/uL (1.0-5.5); LYMPHOCYTES % (AUTO) 14.7 % (20.5-51.5); MEAN CORPUSCULAR HEMOGLOBIN 39 pg (27-31); MEAN CORPUSCULAR HGB CONC 34 % (32-36); MEAN CORPUSCULAR VOLUME 116 fL (79.0-98.0); MONOCYTES # (AUTO) 0.4 K/uL (0.0-1.0); MONOCYTES % (AUTO) 7.7 % (1.7-9.3); NEUTROPHILS # (AUTO) 3.9 K/uL (1.8-7.7); NEUTROPHILS % (AUTO) 77.1 % (40.0-70.0); PLATELET COUNT (AUTO) 94 K/uL (130-430)
[2019-10-17 08:33] LABS: ALANINE AMINOTRANSFERASE 71 U/L (12-78); ALBUMIN 3.4 g/dL (3.4-4.8); ANION GAP 25 (5-15); ASPARTATE AMINOTRANSFERASE 156 U/L (10-37); CHLORIDE 93 mmol/L (98-107); CREATININE 1.53 mg/dL (0.55-1.30); GLUCOSE 164 mg/dL (70-99); POTASSIUM 4.4 mmol/L (3.5-5.1); SODIUM SERUM 137 mmol/L (136-145); TOTAL BILIRUBIN 2.1 mg/dL (0.0-1.0); UREA NITROGEN, BLOOD 27 mg/dL (8-21)
[2019-10-17 08:38] LABS: INR 1.2 (0.80-1.20); PROTHROMBIN TIME 11.9 SECS (9.5-12.5)
[2019-10-17 08:41] LABS: GFR AFRICAN AMERICAN 59 mL/min (>90); RED CELL DISTRIBUTION WIDTH 15.9 % (9.0-15.0)
[2019-10-17 08:44] LABS: CALCIUM 6.4 mg/dL (8.4-11.0)
[2019-10-17 08:46] LABS: LIPASE 2291 U/L (73-393)
[2019-10-17 09:04] LABS: CHOLESTEROL 210 mg/dL (<200); HDL CHOLESTEROL 84 mg/dL (>45); LDL CHOLESTEROL 105 mg/dL (<100); TRIGLYCERIDES 80 mg/dL (30-150)
[2019-10-17] MEDS: MAGNESIUM SULFATE 1 GM, THIAMINE HCL 100 MG in NS 100 ML IV SCH (09:42)
[2019-10-17] MEDS: FOLIC ACID 1 MG, MVI 10 ML in NACL 0.9% 1,000 ML IV SCH (09:42)
[2019-10-17] MEDS: cefTRIAXone 1 GM in D5W 50 ML IV SCH (09:43)
[2019-10-17] MEDS: PANTOPRAZOLE SODIUM 40 MG/VIAL (PROTONIX) IVP SCH ×2 (09:43→21:47)
[2019-10-17] MEDS ORDERED: chlordiazePOXIDE HCL 25 MG CAPSULE PO ONE (10:45)
[2019-10-17] MEDS ORDERED: LEVOTHYROXINE SODIUM 0.1 MG TABLET PO ONE (11:45)
[2019-10-17] MEDS ORDERED: GABAPENTIN 300 MG CAPSULE PO ONE (11:45)
[2019-10-17] MEDS ORDERED: CARVEDILOL 12.5 MG TABLET (COREG) PO ONE (11:45)
[2019-10-17] MEDS ORDERED: GABAPENTIN 400 MG CAPSULE PO ONE (11:45)
--- NOTE | 2019-10-17 12:00 | NUR ---
ROUNDS PT STABLE NOTIN ACUTE DISTRESS. SEEN BY DR HORTON NEW ORDER RECEIVED VITALS STABLE. NEEDS ATTENDED. IVF INFUSING WELL.NO S/S OF DISTRESS NOTED.
--- NOTE | 2019-10-17 15:09 | NUR ---
NOTES PT STABLE.NOT IN ACUTE DISTRESS. ASSISTED PT TO BATHROOM. BACK TO BED. KEPT COMFORTABLE.WILL CONITNUE TO MONITRO
[2019-10-17] MEDS: chlordiazePOXIDE HCL 25 MG CAPSULE PO SCH ×2 (15:39→21:46)
--- NOTE | 2019-10-17 17:11 | NUR ---
rounds PT STABLE.NOT IN ACUTE DISTRESS. SITTING IN BED. CALL LIGHT WITHIN REACH.NOT IN ACUTE DITRESS KEPT COMFORTABLE.WILL CONITNUE TO MONITOR
--- NOTE | 2019-10-17 18:31 | NUR ---
closing notes PT STABLE.NOT IN ACUTE DISTRES. CALL LIGHT WITHIN REACH.NOT IN ACUTE DISTRESS. KEPT COMFORTABLE.CALLIGHT WITHIN REACH. KEPT COMFORTABLE.WILL CONTINUE TO MONITOR UNTIL NIGHT ENDORSEMENT.
--- NOTE | 2019-10-17 18:45 | NUR ---
NEW IV LINE PT RT HAND IV INFITRATED.NEW IV LINE STARTED ON LEFT HAND #22. WITH GOOD BLOOD RETURN.FLUSHED WELL.NO S/S OF INFILTRATION NOTED.
--- NOTE | 2019-10-17 19:10 | NUR ---
PT'S LEFT HAND IV LINE CAME OUT .NEW DRESSING APPLIED. GOWN CHANGED. PT STABLE NOT IN ACUTE DISTRESS.. REPORT GIVEN TO NIGHT NURSE
--- NOTE | 2019-10-17 19:10 | NUR ---
OPENING NOTE: Patient is awake at this time, AOx4. No s/s of acute distress noted. Breathing is even and unlabored. IV was pulled out by patient. No s/s of active bleeding. Will insert new IV at a later time. Patient is ambulatory with a steady gait. Bed is locked in lowest position, bed alarm on, call light with patient. Patient educated on importance and use of call light. Patient verbalized understanding and demonstrated proper use. Will continue to monitor.
--- NOTE | 2019-10-17 21:00 | NUR ---
NEW IV PLACEMENT: # 22 gauge IV placed to the right forearm. Use of asceptic technique. Blood return noted. Flushed with 10 cc of normal saline. No evidence of infiltration noted. Patient tolerated well.
--- NOTE | 2019-10-17 21:20 | NUR ---
SPOKE WITH DR. LAO: Spoke with MD regarding pt request for cough medication. New orders were made. Will carry out orders accordingly.
[2019-10-17] MEDS ORDERED: guaiFENesin/DEXTROMETHORPHAN 10 ML UDC PO PRN (21:30)
[2019-10-17] MEDS: GABAPENTIN 300 MG CAPSULE PO SCH (21:46)
[2019-10-17] MEDS: CARVEDILOL 12.5 MG TABLET (COREG) PO SCH (21:46)
[2019-10-17] MEDS: LORazepam 2 MG/ML VIAL IVP PRN (23:26)
--- NOTE | 2019-10-17 23:30 | NUR ---
EPISODE OF AGITATION/UPSET STOMACH: Patient is agitated at this time. Patient keeps getting out of bed, trying to remove IV lines, and is complaining of upset stomach. Ativan and Zofran were both given. Patient is AOx4, but seems confused or forgetful. Patient has been educated on safety and has verbalized understanding but is hesitant to answer. Will continue to monitor effectiveness of medication and the patient. Bed locked in lowest position, bed alarm on, call light with patient. All needs met at this time.
[2019-10-18] VITALS (14 sets, daily range): BP systolic 112–146
[2019-10-18] MEDS: NACL 0.9% 1,000 ML IV SCH (00:22)
--- NOTE | 2019-10-18 01:06 | NUR ---
ROUNDS/RESTLESS: Patient is still restless and agitated. He is cooperating and staying bed after many times of redirection and re-education. Will continue to monitor and medication with PRN medication accordingly. Bed alarm is on, bed locked in lowest position, call light with patient.
--- NOTE | 2019-10-18 02:21 | NUR ---
SPOKE WITH DR. LAO RE: AGITATION: Spoke with MD about agitation and restlessness of patient. New orders made. Will carry out accordingly.
[2019-10-18] MEDS ORDERED: LORazepam 2 MG/ML VIAL IVP ONE ×2 (02:30→04:15)
[2019-10-18] MEDS: LORazepam 2 MG/ML VIAL IVP PRN ×2 (03:28→09:11)
--- NOTE | 2019-10-18 03:47 | NUR ---
IV INFILTRATION AND NEW IV START: Previous IV infiltrated. IV removed, catherter intact, pressure applied. No s/s of acute distress noted. No s/s of active bleeding. Extremity elevated to help with swelling. Restarted IV on right AC #22g . Successful after 2 attempts. Resumed current IVF. Will observe for any signs of infiltration. Will continue to monitor.
--- NOTE | 2019-10-18 04:00 | NUR ---
SPOKE WITH DR. LAO RE: Agitation/restlessness: Patient is still extremely restless, agitated, and trying to get out of bed. New orders received. Will carry out accordingly.
[2019-10-18] MEDS: PIPERACILLIN/TAZO 3.375/DEX-IS 50 ML IV SCH ×3 (05:12→17:57)
[2019-10-18 06:13] LABS: BASOPHILS % (AUTO) 0.1 % (0.0-2.0); HEMATOCRIT 37.2 % (36-54); HEMOGLOBIN 12.8 g/dL (14.0-18.0); LYMPHOCYTES # (AUTO) 0.6 K/uL (1.0-5.5); LYMPHOCYTES % (AUTO) 10.4 % (20.5-51.5); MEAN CORPUSCULAR HEMOGLOBIN 39 pg (27-31); MEAN CORPUSCULAR HGB CONC 35 % (32-36); MEAN CORPUSCULAR VOLUME 114 fL (79.0-98.0); MONOCYTES # (AUTO) 0.3 K/uL (0.0-1.0); MONOCYTES % (AUTO) 5.9 % (1.7-9.3); NEUTROPHILS # (AUTO) 4.8 K/uL (1.8-7.7); NEUTROPHILS % (AUTO) 83.6 % (40.0-70.0); PLATELET COUNT (AUTO) 76 K/uL (130-430); RED BLOOD CELL COUNT(AUTO) 3.27 MIL/uL (4.2-6.2); RED CELL DISTRIBUTION WIDTH 15.4 % (9.0-15.0); WHITE BLOOD COUNT (AUTO) 5.8 K/uL (4.8-10.8)
[2019-10-18 06:27] LABS: ALBUMIN 3.2 g/dL (3.4-4.8); BILIRUBIN,DIRECT 0.9 mg/dL (0.0-0.3); CALCIUM 7.5 mg/dL (8.4-11.0); CREATININE 1.29 mg/dL (0.55-1.30); INR 1.1 (0.80-1.20); POTASSIUM 3.3 mmol/L (3.5-5.1); TOTAL BILIRUBIN 1.7 mg/dL (0.0-1.0)
--- NOTE | 2019-10-18 06:44 | NUR ---
CLOSING NOTE/PAGED DR. HORTON REG: CRITICAL LAB: Lab called with critical value: lipase level of 5367. Dr. Horton paged at this time. Awaiting a callback. Patient is asleep at this time, arousable to light stimulation. He is still confused. No s/s of acute distress noted. Breathing is even and unlabored. Ativan effective. IVF infusing well without s/s of infiltration or infection to IV site. All fall/safety precautions maintained throughout the shift. All needs met throughout the shift. Will continue to monitor until endorsement of care to dayshift nurse.
[2019-10-18] MEDS ORDERED: POTASSIUM CHLORIDE 40 MEQ, LIDOCAINE JECT 2% PF 100 MG 75 MG in NS 250 ML IV ONE (06:45)
--- NOTE | 2019-10-18 06:56 | NUR ---
SPOKE WITH DR. HORTON RE: LIPASE LEVEL AND EPISODES OF AGITATION: MD aware of patient status. New orders received. Will endorse to dayshift nurse.
[2019-10-18] MEDS ORDERED: NACL 0.9% 1,000 ML IV ONE (07:00)
--- NOTE | 2019-10-18 07:10 | NUR ---
Nutrition Update Florentino Scale 16 noted. Pt admitted for Alcohol Withdrawal Diet: Clear liquid BMI: 25.2 kg/m2 RD to follow per nutrition care standards.
[2019-10-18] MEDS: GABAPENTIN 300 MG CAPSULE PO SCH (08:25)
[2019-10-18] MEDS: LEVOTHYROXINE SODIUM 0.1 MG TABLET PO SCH (08:26)
[2019-10-18] MEDS: CARVEDILOL 12.5 MG TABLET (COREG) PO SCH (08:26)
[2019-10-18] MEDS: chlordiazePOXIDE HCL 25 MG CAPSULE PO SCH (08:26)
[2019-10-18] MEDS: PANTOPRAZOLE SODIUM 40 MG/VIAL (PROTONIX) IVP SCH ×2 (08:26→21:44)
[2019-10-18] MEDS: FOLIC ACID 1 MG, MVI 10 ML in NACL 0.9% 1,000 ML IV SCH (08:37)
[2019-10-18] MEDS: MAGNESIUM SULFATE 1 GM, THIAMINE HCL 100 MG in NS 100 ML IV SCH (08:38)
--- NOTE | 2019-10-18 09:13 | NUR ---
dr mosher here and seen pt. informed dr of agitation and pt pulling out iv.
--- NOTE | 2019-10-18 09:32 | NUR ---
CONSULTATION PAGED REASON FOR CONSULTATION:AICD WAS CONSULT CALLED?Y PERSON WHO WAS NOTIFIED:THADDEUS CONSULTING PHYSICIAN:SACHI SWENSON DIRECTOR OF MEDICARE SPECIALTYCARDIO: DIRECTOR OF MEDICARE PHONE NUMBER:[phone] REQUESTING PHYSICIAN:JIMBO MOORE
--- NOTE | 2019-10-18 10:00 | NUR ---
patient transfer to ICU as ordered, sbar report given to DEMETRIUS Chanel, dr Andrade spoke with pt's on the phone earlier.
--- NOTE | 2019-10-18 10:15 | NUR ---
ADMISSION NOTE Received patient from Tele via Bed. Patient admitted with diagnosis of alcohol withdrawal . Patient lethargic oriented X 1. Patient oriented to hospital room, call light, toileting, pain management and safety-teach back done. Patient informed that Kd will be his nurse and that their room number is 3. Personal belongings checked and Belongings List documented. Call light within reach.
--- NOTE | 2019-10-18 10:58 | NUR ---
S/W pt's via phone, Delaney, regarding living arrangements. Pt lives in [facility] with . Independent at baseline with ADL's and abulation. Has cane does not use it. Per , pt needs psychosocial support. stated that pt has PTSD and is a [place] . Pt has ventilation worker from [place] named Sylvie Alcantar . Litigation Legal Assistant assistance appreciated. -Rose [facility]
[2019-10-18] MEDS: cefTRIAXone 1 GM in D5W 50 ML IV SCH (14:29)
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
[2019-10-18] MEDS ORDERED: COMMUNICATION ORDER XX ONE (18:00)
--- NOTE | 2019-10-18 18:22 | NUR ---
PAGED DR. HORTON FOR ORDERS DIALED: [phone] SPOKE TO: DOUG
--- NOTE | 2019-10-18 19:10 | NUR ---
OPENING NOTE SBAR REPORT RECEIVED FROM PUNEET ROMO. CARE ASSUMED. PT LAYING IN BED. PT ANO X 1. PT ON 2L NASAL CANNULA. O2 SATURATION @ 98%. PT SINUS TACHYCARDIA ON MONITOR. AICD IMPLANTED IN LEFT UPPER CHEST. RADIAL AND PEDAL PULSES NORMAL. PT HAS 22G IV TO RIGHT AC RUNNING FOLVITE @ 150 ML/HR. PT HAS 22G TO LEFT FOREARM TKO WITH NS. ABDOMEN SOFT NON DISTENDED. PT INCONTINENT TO URINE AND FECES. PT HAS SKIN TEAR TO LEFT FOREARM AND PIGMENTATION/DISCOLORATION TO RIGHT FOREARM. BRUISING TO LEFT SHOULDER. BED LOCKED IN LOWEST POSITION. SAFETY PRECAUTIONS IN PLACE. CALL LIGHT WITHIN REACH. WILL CONTINUE TO MONITOR.
--- NOTE | 2019-10-18 19:22 | NUR ---
Closing Note Provided plan of care via sbar to receiving DEMETRIUS Perez. Completed patient round.
[2019-10-18] MEDS: LR 1,000 ML IV SCH ×2 (21:44→21:45)
[2019-10-19] VITALS (24 sets, daily range): BP systolic 110–156
[2019-10-19] MEDS: PIPERACILLIN/TAZO 3.375/DEX-IS 50 ML IV SCH ×2 (01:22→05:13)
--- NOTE | 2019-10-19 01:22 | NUR ---
PAGED DR. LAO FOR ORDERS DIALED: [phone] SPOKE TO: MANJULA
--- NOTE | 2019-10-19 01:25 | NUR ---
RN UPDATE PT FEVER 101.9. CONTACTED MD MEYER. ORDERS UPDATED. WILL CONTINUE TO MONITOR.
[2019-10-19] MEDS: ACETAMINOPHEN 650 MG SUPP.RECT RC PRN (01:45)
[2019-10-19 04:06] LABS: HEPATITIS A AB, IgM Negative (Negative); HEPATITIS B CORE AB, IgM Negative (Negative); HEPATITIS B SURFACE AG Negative (Negative)
[2019-10-19] MEDS: LR 1,000 ML IV SCH (04:48)
[2019-10-19] MEDS: LORazepam 2 MG/ML VIAL IVP PRN ×2 (05:11→21:58)
[2019-10-19 05:18] LABS: MEAN CORPUSCULAR VOLUME 113 fL (79.0-98.0)
[2019-10-19 05:24] LABS: ALBUMIN 2.8 g/dL (3.4-4.8); CREATININE 0.78 mg/dL (0.55-1.30); TOTAL BILIRUBIN 1.7 mg/dL (0.0-1.0)
[2019-10-19 05:26] LABS: HEMATOCRIT 38.8 % (36-54); HEMOGLOBIN 13.5 g/dL (14.0-18.0); MEAN CORPUSCULAR HEMOGLOBIN 39 pg (27-31); MEAN CORPUSCULAR HGB CONC 35 % (32-36); RED BLOOD CELL COUNT(AUTO) 3.44 MIL/uL (4.2-6.2); RED CELL DISTRIBUTION WIDTH 15.5 % (9.0-15.0)
[2019-10-19 05:48] LABS: CALCIUM 6.9 mg/dL (8.4-11.0); POTASSIUM 2.6 mmol/L (3.5-5.1)
[2019-10-19 05:49] LABS: PLATELET COUNT (AUTO) 49 K/uL (130-430)
[2019-10-19 06:13] LABS: BAND % (MANUAL) 22 % (0-6); BASOPHILS % (MANUAL) 0 % (0-2); EOSINOPHILS % (MANUAL) 0 % (0-7); LYMPHOCYTES % (MANUAL) 5 % (20-46); MONOCYTES % (MANUAL) 3 % (0-11)
--- NOTE | 2019-10-19 06:42 | NUR ---
PAGED DR. THOMPSON FOR ORDERS DIALED: [phone] SPOKE TO: AUTOMATED EXCHANGE
[2019-10-19] MEDS ORDERED: DEXTROSE 50% JECT 50 ML DISP.SYRIN IVP PRN (06:45)
--- NOTE | 2019-10-19 06:45 | NUR ---
MD UPDATE SPOKE TO MITCH REGARDING CRITICAL RESULTS. ORDERS UPDATED WILL CONTINUE TO MONITOR
--- NOTE | 2019-10-19 07:31 | NUR ---
CLOSING NOTE PT LAYING IN BED SLEEPING. NO SIGNS AND SYMPTOMS OF DISTRESS NOTED. SBAR REPORT GIVEN TO DARRELL ROMO. CARE ENDORSED.
--- NOTE | 2019-10-19 07:34 | NUR ---
OPENING NOTE Received report from PM nurse using [employer].
[2019-10-19] MEDS: INSULIN REGULAR, HUMAN 100 UNITS/ML, 10 ML VIAL (humuLIN R) SUBCUT PRN (07:41)
[2019-10-19] MEDS ORDERED: CALCIUM GLUCONATE 1 GM in NS 100 ML IV ONE (08:00)
[2019-10-19] MEDS ORDERED: POTASSIUM CHLORIDE 20 MEQ/PKT PACKET PO ONE (08:00)
[2019-10-19] MEDS: POTASSIUM CHLORIDE 40 MEQ in NS 250 ML IV SCH ×2 (09:24→14:06)
[2019-10-19] MEDS: LEVOTHYROXINE SODIUM 0.1 MG TABLET PO SCH (09:25)
[2019-10-19] MEDS: PANTOPRAZOLE SODIUM 40 MG/VIAL (PROTONIX) IVP SCH ×2 (09:25→21:26)
[2019-10-19] MEDS ORDERED: MESALAMINE 400 MG CAPSULE.DR PO ONE (09:30)
--- NOTE | 2019-10-19 10:33 | NUR ---
[employer] Called [phone])Cardiac, spoke to Iván to notify that a rep is needed for ICU pt Robles. Expecting a call back
--- NOTE | 2019-10-19 10:40 | NUR ---
[employer] - Rep Rep Emily Jaimes called back and informed, will be coming to the unit approx 1130 to evaluate AICD.
[2019-10-19 11:05] LABS: INR 1.1 (0.80-1.20); PROTHROMBIN TIME 11.1 SECS (9.5-12.5)
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
--- NOTE | 2019-10-19 11:10 | NUR ---
CHG Pt provided CHG with partial linen change. Pt tolerated well.
--- NOTE | 2019-10-19 11:20 | NUR ---
HERRERA CATH: # 16 FR Herrera catheter inserted with use of sterile technique. Bulb inflated with 10cc sterile water. Immediate return of 50 cc light pink color urine noted. Bedside drainage bag placed below level of bladder. Urine sample collected and sent to lab at 1150. Pt tolerated procedure well with no complaints of pain or distress.
--- NOTE | 2019-10-19 12:00 | NUR ---
Dietitian Recommendations * Consider advance diet if/when medically appropriate (clear liquid w/ Ensure Clear TID -- ONS provides an additional 720 kcal/day, 24 gm protein/day) * Consider alternative nutrition support within 1 week if PO diet is not indicated LP, RD Please refer to Nutrition Assessment for details. Addendum: 10/19/19 at [address] Amended: Links added.
[2019-10-19] MEDS ORDERED: MAGNESIUM SULFATE 50 ML IV ONE (12:15)
[2019-10-19] MEDS: FOLIC ACID IV SCH (14:06)
[2019-10-19] MEDS: MVI IV SCH (14:06)
[2019-10-19] MEDS: LR IV SCH (14:06)
[2019-10-19] MEDS: MEROPENEM 500 MG in NS 50 ML IV SCH ×2 (14:07→21:28)
--- NOTE | 2019-10-19 16:30 | NUR ---
CT Pt connected to portable transport monitor, connected to O2 tank. Pt taken off unit to CT scan.
[2019-10-19] MEDS ORDERED: IOHEXOL 100 ML IV ONE (16:42)
--- NOTE | 2019-10-19 16:55 | NUR ---
CT Pt returned from CT, tolerated well. Connected back to in room monitor. No complaints of any pain or distress.
--- NOTE | 2019-10-19 18:05 | NUR ---
MD Dr. Andrade paged to inform of hematuria, awaiting call back from .
--- NOTE | 2019-10-19 19:20 | NUR ---
closing note Endorsed report to PM nurse using SBAR approach.
[2019-10-19] MEDS ORDERED: LR 1,000 ML IV SCH (20:00)
--- NOTE | 2019-10-19 20:00 | NUR ---
LETHARGIC. BOUTS OF CONFUSION. ON O2 AT 2L/MIN/NC. BREATH SOUNDS ESSENTIALLY CLEAR. POX 99%. BOWEL SOUNDS (+). PULSES PALPABLE. SKIN W/D. COLOR SATISFACTORY. HOB UP TO COMFORT. SIDE RAILS UP. SIDE RAILS PADDED. CALL LIGHTS WITH IN REACH. HERRERA CATH PATENT DRAINING RED-TINGED URINE TO GRAVITY. [facility].
--- NOTE | 2019-10-19 21:00 | NUR ---
1 LARGE LOOSE GREENISH BROWN STOOL DEFECATED. CLEANED. UMANG-CARE GIVEN. BACK CARE, HERRERA CARE, SKIN CARE DONE. PARTIAL LINEN CHANGE. ASSISTS WITH TURNING. ANN MRAIE PROC WELL.
[2019-10-19] MEDS: CARVEDILOL 6.25 MG TABLET (COREG) PO SCH (21:27)
[2019-10-19] MEDS: MESALAMINE 400 MG CAPSULE.DR PO SCH (21:28)
--- NOTE | 2019-10-19 22:00 | NUR ---
RESTLESS. ATTEMPTS TO GET OUT OF BED. TANGENTIAL. WANTS TO GET HIS WALLET. WANTED TO CALL HIS DOCTOR. CONFUSED. ATIVAN 1 MG IVP GIVEN FOR AGITATION.
[2019-10-20] VITALS (21 sets, daily range): BP systolic 101–153
--- NOTE | 2019-10-20 | NUR ---
TAKES OFF NASAL CANNULA. BOUTS OF CONFUSION NOTED. 1 LARGE LOOSE GREENISH BROWN STOOL DEFECATED. CLEANED. UMANG-CARE, HERRERA CARE, SKIN CARE DONE. PARTIAL LINEN CHANGE . DOES NOT ASSIST WITH TURNING. ANN MARIE WELL. ACCU-CHEK 156, 2 UNITS REGULAR INSULIN SQ GIVEN PER SLIDING SCALE COV.
[2019-10-20] MEDS: INSULIN REGULAR, HUMAN 100 UNITS/ML, 10 ML VIAL (humuLIN R) SUBCUT PRN ×2 (00:12→06:18)
[2019-10-20] MEDS ORDERED: MAGNESIUM SULFATE 1 GM, THIAMINE HCL 100 MG in NS 100 ML IV SCH (02:00)
--- NOTE | 2019-10-20 02:00 | NUR ---
CONFUSED. ATTEMPTS TO GET OUT OF BED. "MY DAUGHTER 2 DAYS AGO. SHE WAS JUST 25 YEARS OLD". NEEDS FREQUENT INTERVENTIONS AND REMINDER. "I GOT TO SEE MY DOCTOR". TAKES OFF NASAL CANNULA. FLAILS LEGS OVER SIDE RAILS. REORIENTED TO TIME, PLACE AND CIRCUMSTANCE. FORGETFUL.
[2019-10-20] MEDS ORDERED: MAGNESIUM SULFATE 1 GM/2 ML VIAL ONE (02:22)
[2019-10-20] MEDS ORDERED: THIAMINE HCL 100 MG/ML VIAL ONE (02:22)
[2019-10-20] MEDS: LORazepam 2 MG/ML VIAL IVP PRN ×4 (02:30→19:34)
--- NOTE | 2019-10-20 02:30 | NUR ---
ATIVAN 1MG IVP GIVEN FOR RESTLESSNESS AND AGITATION. 1 WATERY MODERATE GREENISH BROWN STOOL DEFECATED. CLEANED. UMANG CARE GIVEN. REPOSITIONED.
--- NOTE | 2019-10-20 04:00 | NUR ---
DOZES ON AND OFF. TAKES OFF NASAL CANNULA, DESATURATES.
[2019-10-20] MEDS: MVI IV SCH (04:09)
[2019-10-20] MEDS: FOLIC ACID IV SCH (04:09)
[2019-10-20] MEDS: LR IV SCH (04:09)
[2019-10-20] MEDS: MEROPENEM 500 MG in NS 50 ML IV SCH ×3 (05:48→21:18)
[2019-10-20 05:54] LABS: BASOPHILS % (AUTO) 0.3 % (0.0-2.0); EOSINOPHILS # (AUTO) 0.1 K/uL (0.0-0.4); EOSINOPHILS % (AUTO) 2.2 % (0.0-4.0); HEMATOCRIT 36.4 % (36-54); HEMOGLOBIN 12.7 g/dL (14.0-18.0); LYMPHOCYTES # (AUTO) 0.6 K/uL (1.0-5.5); LYMPHOCYTES % (AUTO) 10.4 % (20.5-51.5); MEAN CORPUSCULAR HEMOGLOBIN 39 pg (27-31); MEAN CORPUSCULAR HGB CONC 35 % (32-36); MEAN CORPUSCULAR VOLUME 112 fL (79.0-98.0); MONOCYTES # (AUTO) 0.4 K/uL (0.0-1.0); NEUTROPHILS # (AUTO) 4.9 K/uL (1.8-7.7); NEUTROPHILS % (AUTO) 81.1 % (40.0-70.0); RED BLOOD CELL COUNT(AUTO) 3.25 MIL/uL (4.2-6.2); RED CELL DISTRIBUTION WIDTH 15.5 % (9.0-15.0); WHITE BLOOD COUNT (AUTO) 6.1 K/uL (4.8-10.8)
--- NOTE | 2019-10-20 06:00 | NUR ---
STILL TRYING TO "GET OUT OF HERE". ATTEMPTING TO GET OUT OF BED. UO GOOD. ACCU-CHEK 160, 2 UNITS REGULAR INSULIN SQ GIVEN PER SLIDING SCALE COV. REMAINS IN GUARDED CONDITION.
[2019-10-20 06:15] LABS: ALBUMIN 2.5 g/dL (3.4-4.8); CALCIUM 7.1 mg/dL (8.4-11.0); CREATININE 0.7 mg/dL (0.55-1.30); TOTAL BILIRUBIN 1.3 mg/dL (0.0-1.0)
[2019-10-20 06:17] LABS: POTASSIUM 2.8 mmol/L (3.5-5.1)
--- NOTE | 2019-10-20 06:40 | NUR ---
DR LAO NOTIFIED OF PLATELET 44K, AND POTASSIUM 2.8. ORDERS RECEIVED TO BE IMPLEMENTED.
[2019-10-20 06:49] LABS: THYROID STIMULATING HORMONE 1.44 uIu/mL (0.34-4.82)
[2019-10-20 06:57] LABS: PLATELET COUNT (AUTO) 44 K/uL (130-430)
[2019-10-20] MEDS ORDERED: KCL 40 mEq in 100 mL (PREMIX) 100 ML IV ONE ×2 (07:15→15:30)
--- NOTE | 2019-10-20 07:30 | NUR ---
Opening Note Received report from PM nurse using SBAR approach.
--- NOTE | 2019-10-20 08:00 | NUR ---
AM Assessment Patient awake. Listened to heart and lung sounds. Assessed pulses. Cleaned patient. Bed locked in lowest position. Safety protocols in place. Call light within reach.
--- NOTE | 2019-10-20 08:45 | NUR ---
MD Rounds Dr. Crabtree assessed patient.
[2019-10-20] MEDS: PANTOPRAZOLE SODIUM 40 MG/VIAL (PROTONIX) IVP SCH ×2 (09:06→21:18)
[2019-10-20] MEDS: ACETAMINOPHEN 650 MG SUPP.RECT RC PRN (09:06)
[2019-10-20] MEDS: LEVOTHYROXINE SODIUM 0.1 MG TABLET PO SCH (09:06)
[2019-10-20] MEDS: CARVEDILOL 6.25 MG TABLET (COREG) PO SCH ×2 (09:08→21:19)
[2019-10-20] MEDS: MESALAMINE 400 MG CAPSULE.DR PO SCH ×2 (09:09→21:19)
[2019-10-20] MEDS: LR 1,000 ML IV SCH ×2 (12:59→22:52)
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
--- NOTE | 2019-10-20 14:01 | NUR ---
Airfreight Operations Agent: follow up phone call with pts. . re a referral that was made to look into dynamics of pts. and step-daughter, Rachel. CLUBHOUSE ATTENDANT called pts , Delaney Robles, . Delaney stated that between her and her , they have 6 grown children together. She has Mark and a set of twins all in their 40s. Mal/Pt. has son Benny in [place], Edwin in [place] and prasaduther, Rah[place]. All three of Pts. children are in their 30s' Delaney was stated she and pt. noland not want any of the children to know about pts. pancratitis and his alcoholism. She was adamanat and stated she is aware of HIPPA. CLUBHOUSE ATTENDANT stated she was just calling to clarify. Delaney was speaking and became upset stating she is going to "Get up in her face". She said that phrase 4 or 5 times referring to daughter Rachel. CLUBHOUSE ATTENDANT would try to talk, but Delaney was dominating the conversation and was stating she was upset and Rachel who is 23 years old is a little girl and how dare she call the hospital to try to get info on her dad. CLUBHOUSE ATTENDANT tried to diffuse the situation, but there was no room in the conversation as Delaney was upset and was fixated on confronting the pts. daughter, Rachel re. pt. Delaney also stated she and Mal and Rachel spoke to each other on a 3-way call so why is Rachel calling the hospital trying to get more info on her dad/pt. Mal. CLUBHOUSE ATTENDANT thanked Delaney for her time and stated in this situation when it is already stressful, perhaps she could focus her attention on Mal and using her energy for him and his recovery. Delaney ended the conversation stating she is going to have to clarify with Rachel. CLUBHOUSE ATTENDANT thanked her and told her to take care of herself.
[2019-10-20 15:21] LABS: POTASSIUM 2.9 mmol/L (3.5-5.1)
[2019-10-20] MEDS ORDERED: MAGNESIUM SULFATE/D5W 100 ML IV ONE (15:30)
--- NOTE | 2019-10-20 16:00 | NUR ---
Patient refused SCDs.
--- NOTE | 2019-10-20 19:15 | NUR ---
PM SHIFT ASSESSMENT Pt is awake but confused and agitated. Pt is on RA, SPO2 above 96%. SR noted on monitor. Skin warm and dry. IVF infusing to CAMRYN PICCLINE. Snowden catheter in place and draining to gravity. Safety precautions in place, call light within reach. Will continue to monitor.
--- NOTE | 2019-10-20 19:26 | NUR ---
closing note endorsed report to PM nurse using SBAR approach.
[2019-10-20] MEDS: QUEtiapine FUMARATE 25 MG TABLET PO SCH (21:19)
--- NOTE | 2019-10-20 21:30 | NUR ---
Pt is agitated, yelling "Get out of my house", attempting to remove BP cuff and vital machine lines and putting legs out of bed. Ativan used per MD order. VSS. Safety precautions in place. Will continue to monitor.
[2019-10-21] VITALS (20 sets, daily range): BP systolic 118–147
[2019-10-21] MEDS: LORazepam 2 MG/ML VIAL IVP PRN ×4 (02:43→17:07)
[2019-10-21] MEDS: MAGNESIUM SULFATE 1 GM, THIAMINE HCL 100 MG in NS 100 ML IV SCH ×2 (02:44→20:34)
[2019-10-21] MEDS: LR IV SCH ×2 (02:45→20:32)
[2019-10-21] MEDS: FOLIC ACID IV SCH ×2 (02:45→20:32)
[2019-10-21] MEDS: MVI IV SCH ×2 (02:45→20:32)
--- NOTE | 2019-10-21 05:10 | NUR ---
Pt cleaned, linens changed and turned. Pt tolerated care well. Will continue to monitor.
[2019-10-21] MEDS: MEROPENEM 500 MG in NS 50 ML IV SCH (05:28)
[2019-10-21 05:49] LABS: BASOPHILS % (AUTO) 0.6 % (0.0-2.0); EOSINOPHILS # (AUTO) 0.2 K/uL (0.0-0.4); EOSINOPHILS % (AUTO) 3.1 % (0.0-4.0); HEMATOCRIT 34.4 % (36-54); LYMPHOCYTES # (AUTO) 0.8 K/uL (1.0-5.5); MEAN CORPUSCULAR HEMOGLOBIN 39 pg (27-31); MEAN CORPUSCULAR HGB CONC 35 % (32-36); MEAN CORPUSCULAR VOLUME 112 fL (79.0-98.0); MONOCYTES # (AUTO) 0.5 K/uL (0.0-1.0); MONOCYTES % (AUTO) 10.9 % (1.7-9.3); NEUTROPHILS # (AUTO) 3.4 K/uL (1.8-7.7); NEUTROPHILS % (AUTO) 68.4 % (40.0-70.0); PLATELET COUNT (AUTO) 69 K/uL (130-430); RED BLOOD CELL COUNT(AUTO) 3.07 MIL/uL (4.2-6.2); RED CELL DISTRIBUTION WIDTH 14.7 % (9.0-15.0); WHITE BLOOD COUNT (AUTO) 4.9 K/uL (4.8-10.8)
[2019-10-21 06:00] LABS: ALBUMIN 2.5 g/dL (3.4-4.8); CALCIUM 7.1 mg/dL (8.4-11.0); CREATININE 0.62 mg/dL (0.55-1.30); TOTAL BILIRUBIN 1.3 mg/dL (0.0-1.0)
[2019-10-21 06:19] LABS: POTASSIUM 2.9 mmol/L (3.5-5.1)
--- NOTE | 2019-10-21 07:15 | NUR ---
ENDORSEMENT Pt care endorsed to DEMETRIUS Barker using nursing SBAR.
[2019-10-21] MEDS ORDERED: KCL 40 mEq in 100 mL (PREMIX) 100 ML IV ONE (07:30)
--- NOTE | 2019-10-21 07:50 | NUR ---
AM ASSESSMENT PT AWAKE, DENIES NAUSEA, OFFERED HIM COLD WATER TO DRINK, TONGUE VERY DRY, PT REFUSED, ON IVF BANANA BAG AT 75 ML/HR THRU PICC PORT, HERRERA CATHETER DRAINING ADEQUATE AMOUNT, BLOOD TINGED URINE.
[2019-10-21] MEDS: MESALAMINE 400 MG CAPSULE.DR PO SCH ×2 (08:17→20:35)
[2019-10-21] MEDS: CARVEDILOL 6.25 MG TABLET (COREG) PO SCH ×2 (08:18→20:36)
[2019-10-21] MEDS: PANTOPRAZOLE SODIUM 40 MG/VIAL (PROTONIX) IVP SCH ×2 (08:18→20:34)
[2019-10-21] MEDS: LEVOTHYROXINE SODIUM 0.1 MG TABLET PO SCH (08:20)
[2019-10-21] MEDS: QUEtiapine FUMARATE 25 MG TABLET PO SCH ×2 (08:20→20:36)
--- NOTE | 2019-10-21 08:20 | NUR ---
DIET. SERVED PT BREAKFAST TRAY, EDUCATED PT ON PROPER NUTRITION, HAD SIPS OF GLUCERNA SHAKE, 4 SPOONFULS OF CREAM OF WHEAT, REFUSED TO DRINK WATER.
--- NOTE | 2019-10-21 10:16 | NUR ---
AGITATION. PT DANGLING HIS ONE LEG TO THE SIDE OF HIS BED, "I GOT THIS", HE STATED WHILE LEANING HIS BODY TO THE RAIL, GENERALIZED BODY WEAKNESS NOTED, PLACED PT BACK TO THE MIDDLE OF THE BED FOR SAFETY, MEDICATED WITH ATIVAN 1 MG IVP FOR ANXIETY.
--- NOTE | 2019-10-21 11:06 | NUR ---
. DR HORTON AT BEDSIDE, EXAMINING PT. PT DROWSY AT THIS HOUR.
[2019-10-21] MEDS: cefTRIAXone 1 GM in D5W 50 ML IV SCH (11:38)
[2019-10-21] MEDS: INSULIN REGULAR, HUMAN 100 UNITS/ML, 10 ML VIAL (humuLIN R) SUBCUT PRN ×2 (11:50→23:09)
[2019-10-21 14:03] LABS: POTASSIUM 3.2 mmol/L (3.5-5.1)
--- NOTE | 2019-10-21 14:51 | NUR ---
MDs paged: Dr. Andrade and Dr. Clayton, spoke with exchange.
--- NOTE | 2019-10-21 14:54 | NUR ---
. DR INGRAM AND DR HORTON CALLED BACK, NEW ORDERS RECEIVED, K LEVEL 3.2. PT TO BE TRANSFERRED OUT TO TELEMETRY DEPT TODAY.
[2019-10-21] MEDS ORDERED: KCL 20 mEq in 100 mL (PREMIX) 100 ML IV ONE (15:00)
[2019-10-21] MEDS ORDERED: KCL 20 mEq in 100 mL (PREMIX) 300 ML IV ONE (15:30)
[2019-10-21] MEDS: LR 1,000 ML IV SCH (17:00)
--- NOTE | 2019-10-21 18:35 | NUR ---
TO [facility]. REPORT GIVEN TO DEMETRIUS DAVIS, TRANSFERRED PT TO ROOM 113-B, WITH ALL HIS PERSONAL BELONGINGS.
--- NOTE | 2019-10-21 18:35 | NUR ---
TRANSFER OUT FROM ICU: BEDSIDE REPORT RECEIVED FROM [facility] NURSE. AWAKE,ORIENTED X1-2.WITH IV FLUIDS RUNNING AT RIGHT UPPER ARM PICC LINE,DRESSING CLEAN AND DRY. HERRERA DRAINING TO PINK TINGED -BLOOD IN THE BAG. PER ICU NURSE-MD AWARE. VITAL SIGNS TAKEN. AFEBRILE. CALL LIGHT WITH IN REACH. BED LOCKED AT LOWEST POSITION. BED ALARM ON. WITH SITTER AT THE BEDSIDE. NO ACUTE DISTRESS.WILL ENDORSED TO INCOMING NIGHT NURSE,PT IN STABLE CONDITION.K-RIDER ON GOING ORDERED.
--- NOTE | 2019-10-21 19:10 | NUR ---
OPENING NOTES RECEIVE REPORT FROM DEMETRIUS BRENNAN. PATIENT AWAKE, AOX2. NO SIGNS OF RESPIRATORY DISTRESS NOTED. DENIES PAIN AND DISCOMFORT. SITTER ON THE BEDSIDE. IVF AND K DUR, ON THE CAMRYN PICC LINE, INFUSING WELL, NO INFILTRATION NOTED. HERRERA CATHETER, ATTACHED AND SECURED. DRAINING BY GRAVITY. CALL LIGHT WITHIN REACH. BED LOCKED AND IN LOWEST POSITION. BED ALARM ON. SAFETY PRECAUTIONS IN PLACE. VITAL SIGNS TAKEN AND RECORDED.NEEDS ATTENDED. WILL CONTINUE TO MONITOR PATIENT.
--- NOTE | 2019-10-21 20:34 | NUR ---
MED PASS DUE MEDICATION GIVEN AT THIS TIME. PATIENT TOLERATED WELL. PATIENT WAS EDUCATED ON MEDICATION THAT WAS TAKEN BUT UNABLE TO VERBALIZED UNDERSTANDING. PATIENT IS CONFUSED. PATIENT HAS NO SIGNS OF RESPIRATORY DISTRESS AND DISCOMFORT NOTED. BREATHING EVEN AND UNLABORED, ON ROOM AIR, TOLERATING WELL. SAFETY PRECAUTIONS IN PLACE. SITTER AT BEDSIDE. WILL CONTINUE TO MONITOR PATIENT.
--- NOTE | 2019-10-21 22:25 | NUR ---
RN ROUNDS PATIENT ASLEEP AT THIS TIME. NO SIGNS OF RESPIRATORY DISTRESS AND DISCOMFORT NOTED. BREATHING EVEN AND UNLABORED. SITTER AT BEDSIDE. CALL LIGHT WITHIN REACH. IVF INFUSING WELL. SCD'S OPERATING WELL. SAFETY PRECAUTIONS IN PLACE. WILL CONTINUE TO MONITOR PATIENT.
--- NOTE | 2019-10-21 23:12 | NUR ---
RN ROUNDS/ BS CHECKED 175 BS CHECKED DONE AT THIS TIME JP=018, 2UNITS OF REGULAR INSULIN GIVEN. PATIENT TOLERATED WELL. PATIENT WAS EDUCATED BUT UNABLE TO VERBALIZED UNDERSTANDING. PATIENT WENT BACK TO SELL. NO SIGNS OF RESPIRATORY DISTRESS AND DISCOMFORT NOTED. BREATHING EVEN AND UNLABORED. CALL LIGHT WITH IN REACH. IVF INFUSING WELL. HERRERA CATHETER DRAINING WELL. SAFETY PRECAUTIONS IN PLACE. WILL CONTINUE TO MONITOR PATIENT.
[2019-10-22] VITALS: BP_SYST 113
[2019-10-22] MEDS: LR 1,000 ML IV SCH ×2 (01:32→13:49)
--- NOTE | 2019-10-22 02:16 | NUR ---
RN ROUNDS PATIENT AWAKE AND TRYING TO REMOVE CLOTHS, AND LOOKING FOR HIS PHONE. GOWN WAS PUTTED AGAIN, PATIENT WAS RE ORIENTED. PATIENT CALM AND FOLLOWS ON COMMANDS. NO SIGNS OF RESPIRATORY DISTRESS AND DISCOMFORT NOTED. BREATHING EVEN AND UNLABORED. SITTER AT BEDSIDE. CALL LIGHT WITHIN REACH. IVF INFUSING WELL. HERRERA DRAINING WELL. SCD'S OPERATING WELL. WILL CONTINUE TO MONITOR PATIENT.
--- NOTE | 2019-10-22 04:25 | NUR ---
UMANG CARE UMANG CARE DONE AT THIS TIME WITH HELP OF WILLAM BERMEO. PATIENT TOLERATED WELL. NEEDS ATTENDED. IVF INFUSING WELL. HERRERA CATHETER DRAINING WELL. SCD'S OPERATING WELL. REPOSITIONED FOR COMFORT. SAFETY PRECAUTIONS IN PLACE. SITTER AT BEDSIDE. WILL CONTINUE TO MONITOR PATIENT.
[2019-10-22] MEDS: INSULIN REGULAR, HUMAN 100 UNITS/ML, 10 ML VIAL (humuLIN R) SUBCUT PRN ×3 (05:26→23:30)
--- NOTE | 2019-10-22 05:27 | NUR ---
FS=693 BS CHECKED LF=137. NO COVERAGE NEEDED AT THIS TIME. PATIENT WENT BACK TO SLEEP . NO SIGNS OF RESPIRATORY DISTRESS AND DISCOMFORT NOTED. BREATHING EVEN AND UNLABORED. SITTER AT BEDSIDE. IVF INFUSING WELL. HERRERA CATHETER DRAINING WELL. SAFETY PRECAUTIONS IN PLACE. WILL CONTINUE TO MONITOR PATIENT.
[2019-10-22 06:22] LABS: ALBUMIN 2.7 g/dL (3.4-4.8); CALCIUM 7.7 mg/dL (8.4-11.0); CREATININE 0.77 mg/dL (0.55-1.30); POTASSIUM 3.6 mmol/L (3.5-5.1); TOTAL BILIRUBIN 1.1 mg/dL (0.0-1.0)
[2019-10-22 06:35] LABS: EOSINOPHILS # (AUTO) 0.2 K/uL (0.0-0.4); EOSINOPHILS % (AUTO) 4.2 % (0.0-4.0); HEMATOCRIT 36.5 % (36-54); HEMOGLOBIN 12.6 g/dL (14.0-18.0); LYMPHOCYTES # (AUTO) 1.3 K/uL (1.0-5.5); LYMPHOCYTES % (AUTO) 26.5 % (20.5-51.5); MEAN CORPUSCULAR HEMOGLOBIN 39 pg (27-31); MEAN CORPUSCULAR HGB CONC 35 % (32-36); MEAN CORPUSCULAR VOLUME 113 fL (79.0-98.0); MONOCYTES # (AUTO) 0.8 K/uL (0.0-1.0); MONOCYTES % (AUTO) 17.8 % (1.7-9.3); NEUTROPHILS # (AUTO) 2.4 K/uL (1.8-7.7); NEUTROPHILS % (AUTO) 50.5 % (40.0-70.0); PLATELET COUNT (AUTO) 108 K/uL (130-430); RED BLOOD CELL COUNT(AUTO) 3.24 MIL/uL (4.2-6.2); RED CELL DISTRIBUTION WIDTH 15.1 % (9.0-15.0); WHITE BLOOD COUNT (AUTO) 4.7 K/uL (4.8-10.8)
--- NOTE | 2019-10-22 06:35 | NUR ---
CLOSING NOTES PATIENT AWAKE AT THIS TIME. AOX1, CONFUSED AT TIMES. NO SIGNS OF RESPIRATORY DISTRESS AND DISCOMFORT NOTED. BREATHING EVEN AND UNLABORED. IVF INFUSING WELL IN THE CAMRYN PICC LINE, PATENCY NOTED. SITTER AT BEDSIDE. HERRERA CATHETER ATTACHED AND SECURED DRAINING WELL BY GRAVITY. SCD'S OPERATING WELL. CALL LIGHT WITHIN REACH. BED LOCKED AND IN LOWEST POSITION. BED ALARM ON. ALL NEEDS MET THROUGHOUT THE SHIFT. SAFETY PRECAUTIONS IN PLACE. WILL CONTINUE TO MONITOR UNTIL ENDORSED TO ONCOMING SHIFT NURSE FOR CONTINUITY OF CARE.
--- NOTE | 2019-10-22 07:17 | NUR ---
Opening Note received bedside SBAR report from shift superintendent caustic cresylate RN, patient resting in bed, respirations even and unlabored on room air, no acute distress noted, lawson catheter draining to gravity, room close to nurses station, educated patient on use of call light and asked to call for assistance, call light in reach, bed in low and locked position, bed alarm on, sitter at bedside.
[2019-10-22 08:00] VITALS: BP_SYST 131
[2019-10-22] MEDS: PANTOPRAZOLE SODIUM 40 MG/VIAL (PROTONIX) IVP SCH ×2 (08:00→20:35)
[2019-10-22] MEDS: QUEtiapine FUMARATE 25 MG TABLET PO SCH ×2 (08:00→20:34)
[2019-10-22] MEDS: LEVOTHYROXINE SODIUM 0.1 MG TABLET PO SCH (08:00)
[2019-10-22] MEDS: CARVEDILOL 6.25 MG TABLET (COREG) PO SCH ×2 (08:00→20:34)
[2019-10-22] MEDS: MESALAMINE 400 MG CAPSULE.DR PO SCH ×2 (08:00→20:33)
--- NOTE | 2019-10-22 08:12 | NUR ---
Physician Rounds Dr. Avendano at bedside examining patient.
--- NOTE | 2019-10-22 09:50 | NUR ---
Wound care educated patient on purpose and procedure for wound care, patient verbalized understanding, wound care completed, patient tolerated well, see MST shift assessment for wound care, patient resting in bed, sitter at bedside.
--- NOTE | 2019-10-22 10:10 | NUR ---
Physician Rounds Dr. Dow at bedside examining patient.
[2019-10-22] MEDS: cefTRIAXone 1 GM in D5W 50 ML IV SCH (11:26)
--- NOTE | 2019-10-22 11:51 | NUR ---
Nutrition F/U Admitting Diagnosis Alcohol withdrawal Reviewed Pertinent Medical/Surgical Hx Medical Record Significant Other Other Medical History Comment: PMH: cardiomyopathy, HTN, hypothyroidism, heavy alcohol use per physician notes Pt also found w/ alcohol-induced pancreatitis, N/V, ARF, delirium tremens, metabolic encephalopathy, UC per physician notes Subjective Information Per EMR intake record, pt's poor PO intake continued with 5% PO intake x [address] spoke with RN via phone -- RN stated that pt is not eating much and is only drinking 2 sips of Glucerna this morning. Last BM x 1 (10/20) noted per EMR. No new wt changes noted per chart review. Per EMR, pt's diet order advanced to Mechanical Soft Diet. Pt is not yet meeting nutritional needs. Pt may benefit from having ONS TID with meals. Current Diet Order/Nutrition Support Mechanical Soft Diet (10/21) Patient/Significant Other Able To Verbalize Education Provided Not Indicated Pertinent Medications SSI, synthroid, zofran Pertinent Labs BG 136 H (trending down), POC BG 146 H (trending down) , Tbili 1.1 H (trending down), AST 72 H, Lipase 398 H (improved), Amylase 581 H Height (Feet) 5 feet Height (Inches) 6.00 inches Weight (Pounds) 150 pounds Weight (Calculated Kilograms) 68.435154 kilograms Patient Weight 68.039 kg Body Mass Index 24.21 kg/m2 Usual Weight 185 lbs %UBW 81 %IBW 106 [place]/Adjusted Body Weight IBW: 142#/65 kg Recent Weight Change Yes - gradual wt loss within past 2 years; possible 35# wt loss Weight Status Appropriate Gastrointestinal Symptoms Diarrhea Last BM October 21, 2019 x 1 Food Allergies No - per Usual Diet At Home Regular, 1 meal/day Skin Integrity Comment: Florentino scale: 15; per nursing notes, skin tear to R arm, RN also reported dark bruise to R side of leg under SCD Current % PO 5% x 3 meals -- Negligible Estimated Energy Expenditure (kcals/day) 0289-8897 kcal/day (25-30 kcal/kg CBW for maintenance) Estimated Protein Required (g/day) 41-68 gm/day (0.6-1 gm/kg CBW for ARF, maintenance) Estimated Fluid Required (l/day) Per physician d/t ARF Problem/Etiology/Signs/Symptoms Inadequate nutritional intakes related to possible displacement of wholesome nutrition as evidenced by Hx of heavy alcohol use and current NPO status. *ongoing Unintentional wt loss related to lack of preference for foods as evidenced by "picky eating" and possible 35# wt loss within past 2 years per report. *ongoing Expected Outcomes/Goals - Monitor advancement of diet, appetite, and PO intakes w/ goal of pt meeting at least 50% of estimated nutritional needs, labs trending WNL, normal GI function, and skin integrity/wt maintenance Dietitian Recommendations * Recommend continue mechanical soft diet * Recommend provide Ensure Enlive TID with meals. Ensure Enlive TID provides: 1050 kcals, 60g protein * Consider appetite stimulant if negligible PO intake persists Follow Up High Risk: F/U in 2-3days
[2019-10-22 12:00] VITALS: BP_SYST 139
--- NOTE | 2019-10-22 12:07 | NUR ---
RN Rounds patient resting in bed, respirations even and unlabored on room air, no acute distress noted, patient denies any pain, sitter at bedside.
--- NOTE | 2019-10-22 12:11 | NUR ---
Dietitian Recommendations * Recommend continue mechanical soft diet * Recommend provide Ensure Enlive TID with meals. Ensure Enlive TID provides: 1050 kcals, 60g protein * Consider appetite stimulant if negligible PO intake persists Please see Nutrition F/U for details. EP,RD
[2019-10-22] MEDS: LORazepam 2 MG/ML VIAL IVP PRN (13:49)
--- NOTE | 2019-10-22 13:55 | NUR ---
Spoke with patients spoke with patients Delaney, informed her that patient had an episode of agitation today and that patient has a sitter at bedside for patient safety, Delaney verbalized understanding, transferred call to patients room, patient speaking on phone with his . Addendum: 10/22/19 at 1519 by Adela Alvarez RN incorrect time entered, change time of above note to 1405.
--- NOTE | 2019-10-22 13:55 | NUR ---
Agitation patient agitated, patient yelling, patient putting legs over side rail, patient clenching fists, attempted to redirect patient, unsuccessful, educated patient on use and side effects of PRN ativan for agitation, patient tolerated medication administration well, no acute distress noted, patient resting in bed, sitter at bedside.
[2019-10-22 16:00] VITALS: BP_SYST 146
--- NOTE | 2019-10-22 16:30 | NUR ---
RN Rounds patient resting in bed, respirations even and unlabored on room air, no acute distress noted, sitter at bedside.
--- NOTE | 2019-10-22 18:15 | NUR ---
RN Rounds patient sitting up in bed eating dinner with assistance from BOTTLE TESTER, no acute distress noted, IV fluids infusing well to right upper arm PICC line, sitter at bedside.
--- NOTE | 2019-10-22 19:10 | NUR ---
Closing Note bedside SBAR report given to receiving RN, patient resting in bed, respirations even and unlabored on room air, no acute distress noted, room close to nurses station, educated patient on use of call light and asked to call for assistance, patient verbalized understanding, call light in reach, bed in low and locked position, bed alarm on, sitter at bedside, care endorsed to material handler 1st shift RN.
--- NOTE | 2019-10-22 19:10 | NUR ---
OPENING NOTES RECEIVE REPORT FROM DEMETRIUS ROBLES. PATIENT AWAKE, AOX4. PATIENT ABLE TO ANSWER NAME, DATE OF , PLACE AND EVENT. BUT PATIENT IS CONFUSED AT TIMES. ASKING TO GET A DRINK ON HIS FRIDGE. TO HELP HIM GET UP AND HE'LL GET THE DRINK ON HIS FRIDGE. PATIENT WAS RE ORIENTED THAT HE IS IN THE HOSPITAL. AND HE VERBALIZED THAT ''HE KNOWS HE'S AT [facility]''. NO SIGNS OF RESPIRATORY DISTRESS NOTED. DENIES PAIN AND DISCOMFORT. SITTER ON THE BEDSIDE. IVF ON THE CAMRYN PICC LINE, INFUSING WELL, NO INFILTRATION NOTED. HERRERA CATHETER, ATTACHED AND SECURED. DRAINING BY GRAVITY. REFUSED TO SCD'S AT THIS TIME. PATIENT WAS EDUCATED ON PURPOSE AND BENEFITS OF SCD'S, PATIENT VERBALIZED UNDERSTANDING BUT STILL REFUSED. CALL LIGHT WITHIN REACH. BED LOCKED AND IN LOWEST POSITION. BED ALARM ON. SAFETY PRECAUTIONS IN PLACE. VITAL SIGNS TAKEN AND RECORDED. NEEDS ATTENDED. WILL CONTINUE TO MONITOR PATIENT.
--- NOTE | 2019-10-22 19:40 | NUR ---
ROUNDS/ STOP IVF DR. VINES SEEN THE PATIENT. MD ORDERED TO STOP IVF AT THIS TIME. WILL CARRY OUT.
[2019-10-22 20:00] VITALS: BP_SYST 125
[2019-10-22] MEDS: FOLIC ACID IV SCH (20:33)
[2019-10-22] MEDS: MAGNESIUM SULFATE 1 GM, THIAMINE HCL 100 MG in NS 100 ML IV SCH (20:33)
[2019-10-22] MEDS: MVI IV SCH (20:33)
[2019-10-22] MEDS: LR IV SCH (20:33)
--- NOTE | 2019-10-22 20:35 | NUR ---
MED PASS DUE MEDICATION GIVEN AT THIS TIME. PATIENT TOLERATED WELL. PATIENT WAS EDUCATED ON MEDICATION THAT WAS TAKEN, PATIENT VERBALIZED UNDERSTANDING. PATIENT IS CONFUSED AT TIMES. WILL CONTINUE TO RE ORIENT AND OBSERVE. PATIENT HAS NO SIGNS OF RESPIRATORY DISTRESS AND DISCOMFORT NOTED. BREATHING EVEN AND UNLABORED, ON ROOM AIR, TOLERATING WELL. SAFETY PRECAUTIONS IN PLACE. SITTER AT BEDSIDE. WILL CONTINUE TO MONITOR PATIENT.
--- NOTE | 2019-10-22 23:27 | NUR ---
BS [id number]=015 BS CHECKED DONE AT THIS TIME. 4 UNITS OF REGULAR INSULIN WAS GIVEN FOR COVERAGE. PATIENT WENT BACK TO SLEEP. PATIENT HAS NO SIGNS OF RESPIRATORY DISTRESS AND DISCOMFORT NOTED. BREATHING EVEN AND UNLABORED. ON ROOM AIR TOLERATING WELL. HERRERA CATHETER DRAINING WELL. IVF INFUSING. SAFETY PRECAUTIONS IN PLACE. WILL CONTINUE TO MONITOR PATIENT.
[2019-10-23 00:06] VITALS: BP_SYST 110
--- NOTE | 2019-10-23 02:32 | NUR ---
RN ROUNDS PATIENT ASLEEP AT THIS TIME. NO SIGNS OF RESPIRATORY DISTRESS AND DISCOMFORT NOTED. BREATHING EVEN AND UNLABORED. ON ROOM AIR, TOLERATING WELL. SITTER AT BEDSIDE. CALL LIGHT WITHIN REACH. IVF INFUSING WELL. SAFETY PRECAUTIONS IN PLACE. WILL CONTINUE TO MONITOR PATIENT.
--- NOTE | 2019-10-23 04:25 | NUR ---
RN ROUNDS PATIENT ASLEEP AT THIS TIME. NO SIGNS OF RESPIRATORY DISTRESS AND DISCOMFORT NOTED. BREATHING EVEN AND UNLABORED. ON ROOM AIR, TOLERATING WELL. SITTER AT BEDSIDE. CALL LIGHT WITHIN REACH. IVF INFUSING WELL. HERRERA CATHETER DRAINING WELL. SAFETY PRECAUTIONS IN PLACE. WILL CONTINUE TO MONITOR PATIENT.
[2019-10-23] MEDS: INSULIN REGULAR, HUMAN 100 UNITS/ML, 10 ML VIAL (humuLIN R) SUBCUT PRN ×3 (05:24→23:42)
--- NOTE | 2019-10-23 05:26 | NUR ---
BS CHECKED 122 BS CHECKED 122, NO COVERAGE NEEDED. PATIENT AWAKE. NO SIGNS OF RESPIRATORY DISTRESS NOTED. DENIES PAIN AND DISCOMFORT. BREATHING EVEN AND UNLABORED. ON ROOM AIR, TOLERATING WELL. SITTER AT BEDSIDE. CALL LIGHT WITHIN REACH. IVF INFUSING WELL. SAFETY PRECAUTIONS IN PLACE. WILL CONTINUE TO MONITOR PATIENT.
--- NOTE | 2019-10-23 06:19 | NUR ---
CLOSING NOTES PATIENT ASLEEP AT THIS TIME. NO SIGNS OF RESPIRATORY DISTRESS AND DISCOMFORT NOTED. BREATHING EVEN AND UNLABORED. IVF INFUSING WELL IN THE CAMRYN PICC LINE, PATENCY NOTED. NO INFILTRATION NOTED. SITTER AT BEDSIDE. HERRERA CATHETER ATTACHED AND SECURED DRAINING WELL BY GRAVITY. CALL LIGHT WITHIN REACH. BED LOCKED AND IN LOWEST POSITION. BED ALARM ON. ALL NEEDS MET THROUGHOUT THE SHIFT.SAFETY PRECAUTIONS IN PLACE. WILL CONTINUE TO MONITOR UNTIL ENDORSED TO ONCOMING SHIFT NURSE FOR CONTINUITY OF CARE.
[2019-10-23 06:43] LABS: BASOPHILS # (AUTO) 0.1 K/uL (0.0-0.2); BASOPHILS % (AUTO) 1.1 % (0.0-2.0); EOSINOPHILS # (AUTO) 0.2 K/uL (0.0-0.4); EOSINOPHILS % (AUTO) 3.2 % (0.0-4.0); HEMATOCRIT 37.7 % (36-54); HEMOGLOBIN 13.1 g/dL (14.0-18.0); LYMPHOCYTES # (AUTO) 1.3 K/uL (1.0-5.5); MEAN CORPUSCULAR HEMOGLOBIN 39 pg (27-31); MEAN CORPUSCULAR HGB CONC 35 % (32-36); MEAN CORPUSCULAR VOLUME 112 fL (79.0-98.0); MONOCYTES # (AUTO) 0.9 K/uL (0.0-1.0); MONOCYTES % (AUTO) 16.1 % (1.7-9.3); NEUTROPHILS # (AUTO) 2.9 K/uL (1.8-7.7); NEUTROPHILS % (AUTO) 55.6 % (40.0-70.0); PLATELET COUNT (AUTO) 166 K/uL (130-430); RED BLOOD CELL COUNT(AUTO) 3.36 MIL/uL (4.2-6.2); WHITE BLOOD COUNT (AUTO) 5.3 K/uL (4.8-10.8)
[2019-10-23 06:47] LABS: ALBUMIN 2.6 g/dL (3.4-4.8); CALCIUM 8.2 mg/dL (8.4-11.0); CREATININE 0.8 mg/dL (0.55-1.30); POTASSIUM 3.2 mmol/L (3.5-5.1)
--- NOTE | 2019-10-23 07:30 | NUR ---
Received patient and endorsed report. In no acute distress. Patient sleeping in bed side rails x 3 up. Call light with in reach. Breathing even and unlabored.
[2019-10-23 08:00] VITALS: BP_SYST 125
[2019-10-23] MEDS: PANTOPRAZOLE SODIUM 40 MG/VIAL (PROTONIX) IVP SCH ×2 (08:48→20:13)
[2019-10-23] MEDS: QUEtiapine FUMARATE 25 MG TABLET PO SCH ×2 (08:48→20:12)
[2019-10-23] MEDS: LEVOTHYROXINE SODIUM 0.1 MG TABLET PO SCH (08:48)
[2019-10-23] MEDS: MESALAMINE 400 MG CAPSULE.DR PO SCH ×2 (08:48→20:12)
[2019-10-23] MEDS: CARVEDILOL 6.25 MG TABLET (COREG) PO SCH ×2 (08:49→20:13)
--- NOTE | 2019-10-23 09:30 | NUR ---
Assessed patient in bed with side rails x 3 up. Eating breakfast. Sitter at bedside. Call light with in reach. Denies pain. Breathing even and unlabored on room air. In no acute distress.
--- NOTE | 2019-10-23 11:30 | NUR ---
Assessed patient in bed with side rails x 3 up. Sitter at bedside. Call light with in reach. Denies pain. Breathing even and unlabored on room air. In no acute distress.
[2019-10-23] MEDS: cefTRIAXone 1 GM in D5W 50 ML IV SCH (11:50)
[2019-10-23 12:00] VITALS: BP_SYST 117
--- NOTE | 2019-10-23 13:30 | NUR ---
Assessed patient in bed with side rails x 3 up. Patient eating lunch. Sitter at bedside. Call light with in reach. Denies pain. Breathing even and unlabored on room air. In no acute distress.
--- NOTE | 2019-10-23 14:06 | NUR ---
Informed MD Rios potassium 3.2, new order potassium 40 meq PO one time. Orders placed and carried out.
[2019-10-23] MEDS ORDERED: POTASSIUM CHLORIDE 20 MEQ TAB.PRT.SR PO ONE (14:15)
--- NOTE | 2019-10-23 15:25 | NUR ---
P.T. NOTES P.T. EVAL COMPLETED; AMBULATORY W/ MIN/CG ASSIST W/ FWW; REPORTS BMx3 TODAY; WILL BENEFIT W/ P.T. POST ACUTE STAY & FWW FOR HOME USE.
[2019-10-23 16:35] VITALS: BP_SYST 111
--- NOTE | 2019-10-23 17:30 | NUR ---
Assessed patient in bed with side rails x 3 up. Sitter at bedside. Eating dinner. Call light with in reach. Denies pain. Breathing even and unlabored on room air. In no acute distress.
--- NOTE | 2019-10-23 19:19 | NUR ---
Endorsed patient and report to oncoming shift nurse. Patient in bed with side rails x 3 up. Sitter at bedside. Call light with in reach. Denies pain. Breathing even and unlabored on room air. In no acute distress.
[2019-10-23 20:00] VITALS: BP_SYST 105
--- NOTE | 2019-10-23 20:15 | NUR ---
INITIAL NOTE RECEIVED PT AWAKE, AOX2. NO COMPLAINTS OF PAIN OR DISCOMFORT. SITTER AT BEDSIDE. FEED GRINDER IN PLACE. PICC PATENT AND FLUSHING WELL WITH BLOOD RETURN NOTED. RESPIRATIONS EVEN AND UNLABORED ON ROOM AIR. CALL LIGHT WITHIN REACH. DEMONSTRATED PROPER USE OF CALL LIGHT, PATIENT VERBALIZED UNDERSTANDING. SAFETY MEASURES IN PLACE. BED IN LOWEST POSITION. BED ALARM ON. WILL CONTINUE TO MONITOR.
[2019-10-23] MEDS: LR IV SCH (20:34)
[2019-10-23] MEDS: MAGNESIUM SULFATE 1 GM, THIAMINE HCL 100 MG in NS 100 ML IV SCH (20:34)
[2019-10-23] MEDS: MVI IV SCH (20:34)
[2019-10-23] MEDS: FOLIC ACID IV SCH (20:34)
[2019-10-23] MEDS: LORazepam 2 MG/ML VIAL IVP PRN (21:46)
[2019-10-23 23:25] VITALS: BP_SYST 116
--- NOTE | 2019-10-24 | NUR ---
ACCUCHECK ACCUCHECK DONE, BS 285, GAVE INSULIN COVERAGE ORDERED. WILL CONTINUE TO MONITOR.
--- NOTE | 2019-10-24 02:30 | NUR ---
ROUNDS PATIENT AGITATED, VIOLENT, ATTEMPTING TO GET OUT OF BED. PATIENT UNCOOPERATIVE. WILL MEDICATE ORDERED. WILL CONTINUE TO MONITOR FOR SAFETY. BED ALARM ON, BED IN LOWEST POSITION.
[2019-10-24] MEDS: ONDANSETRON HCL 4 MG/2 ML VIAL IVP PRN ×2 (05:04→23:52)
[2019-10-24] MEDS: LORazepam 2 MG/ML VIAL IVP PRN ×3 (05:04→23:53)
--- NOTE | 2019-10-24 05:13 | NUR ---
ROUNDS PATIENT CONTINUES TO BE AGITATED AND DISORIENTED. REORIENTED PATIENT AND MEDICATED ORDERED. WILL CONTINUE TO MONITOR. SIDE RAILS UP X3, BED IN LOWEST POSITION, BED ALARM ON, SITTER REMAINS AT BEDSIDE.
[2019-10-24] MEDS ORDERED: LORazepam 2 MG/ML VIAL IVP ONE (06:00)
--- NOTE | 2019-10-24 06:00 | NUR ---
SPOKE WITH DR LAO PATIENT AGITATED, AGGRESSIVE, AND TRYING TO PHYSICALLY HIT SITTER. SPOKE WITH DR LAO. ORDERS RECEIVED FOR ATIVAN 1MG IVP ONCE STAT AND BILATERAL SOFT WRIST RESTRAINTS IN PLACE FOR 6HRS THEN FOLLOW UP WITH DR LAO TO REASSESS NEED FOR RESTRAINTS.
--- NOTE | 2019-10-24 07:10 | NUR ---
Received patient and endorsed report. Patient in no acute distress. Side rails x 3 up. Call light with in reach. Breathing even and unlabored. Patient sleeping in bed.
[2019-10-24 07:50] LABS: BASOPHILS # (AUTO) 0.1 K/uL (0.0-0.2); BASOPHILS % (AUTO) 1.5 % (0.0-2.0); EOSINOPHILS # (AUTO) 0.1 K/uL (0.0-0.4); EOSINOPHILS % (AUTO) 2.2 % (0.0-4.0); HEMATOCRIT 36.3 % (36-54); HEMOGLOBIN 12.5 g/dL (14.0-18.0); LYMPHOCYTES # (AUTO) 1.3 K/uL (1.0-5.5); LYMPHOCYTES % (AUTO) 24.9 % (20.5-51.5); MEAN CORPUSCULAR HEMOGLOBIN 39 pg (27-31); MEAN CORPUSCULAR HGB CONC 35 % (32-36); MEAN CORPUSCULAR VOLUME 113 fL (79.0-98.0); MONOCYTES # (AUTO) 0.7 K/uL (0.0-1.0); MONOCYTES % (AUTO) 12.7 % (1.7-9.3); NEUTROPHILS # (AUTO) 3.2 K/uL (1.8-7.7); NEUTROPHILS % (AUTO) 58.7 % (40.0-70.0); PLATELET COUNT (AUTO) 207 K/uL (130-430); RED BLOOD CELL COUNT(AUTO) 3.22 MIL/uL (4.2-6.2); RED CELL DISTRIBUTION WIDTH 14.6 % (9.0-15.0); WHITE BLOOD COUNT (AUTO) 5.4 K/uL (4.8-10.8)
[2019-10-24 08:00] VITALS: BP_SYST 119
[2019-10-24 08:05] LABS: ALBUMIN 2.6 g/dL (3.4-4.8); CREATININE 0.85 mg/dL (0.55-1.30); POTASSIUM 3.8 mmol/L (3.5-5.1); TOTAL BILIRUBIN 1.1 mg/dL (0.0-1.0)
[2019-10-24] MEDS: PANTOPRAZOLE SODIUM 40 MG/VIAL (PROTONIX) IVP SCH ×2 (08:25→21:29)
[2019-10-24] MEDS: MESALAMINE 400 MG CAPSULE.DR PO SCH ×2 (08:25→21:08)
[2019-10-24] MEDS: CARVEDILOL 6.25 MG TABLET (COREG) PO SCH ×2 (08:26→21:51)
[2019-10-24] MEDS: QUEtiapine FUMARATE 25 MG TABLET PO SCH ×2 (08:27→21:08)
[2019-10-24] MEDS: LEVOTHYROXINE SODIUM 0.1 MG TABLET PO SCH (08:27)
--- NOTE | 2019-10-24 09:10 | NUR ---
Assessed patient. Sitter at bedside, assisting in eating breakfast. Patient in no acute distress. Side rails x 3 up. Call light with in reach. Breathing even and unlabored.
--- NOTE | 2019-10-24 11:10 | NUR ---
Assessed patient. Sitter at bedside. Patient in no acute distress. Side rails x 3 up. Call light with in reach. Breathing even and unlabored.
--- NOTE | 2019-10-24 11:50 | NUR ---
MD Gardner at bedside, ordered restraints to be discontinued.
[2019-10-24 12:17] VITALS: BP_SYST 97
[2019-10-24] MEDS: cefTRIAXone 1 GM in D5W 50 ML IV SCH (12:55)
[2019-10-24] MEDS: INSULIN REGULAR, HUMAN 100 UNITS/ML, 10 ML VIAL (humuLIN R) SUBCUT PRN ×2 (12:56→18:09)
--- NOTE | 2019-10-24 13:10 | NUR ---
Assessed patient. Patient eating lunch. Sitter at bedside. Patient in no acute distress. Side rails x 3 up. Call light with in reach. Breathing even and unlabored.
[2019-10-24] MEDS ORDERED: LR IV SCH (13:19)
[2019-10-24] MEDS ORDERED: FOLIC ACID IV SCH (13:19)
[2019-10-24] MEDS ORDERED: MVI IV SCH (13:19)
--- NOTE | 2019-10-24 15:10 | NUR ---
Assessed patient. Sitter at bedside. Patient in no acute distress. Side rails x 3 up. Call light with in reach. Breathing even and unlabored.
[2019-10-24 16:01] VITALS: BP_SYST 103
--- NOTE | 2019-10-24 17:10 | NUR ---
Assessed patient. Sitter at bedside. Patient in no acute distress. Side rails x 3 up. Call light with in reach. Breathing even and unlabored.
--- NOTE | 2019-10-24 19:07 | NUR ---
Endorsed patient and report to oncoming shift nurse. Patient sleeping in bed with side rails x 3 up. Call light with in reach. Sitter at bedside. Breathing even and unlabored. In no acute distress.
--- NOTE | 2019-10-24 19:30 | NUR ---
INITIAL NOTE RECEIVED PATIENT SLEEPING IN BED WITH SIDE RAILS UP X3. CALL LIGHT WITHIN REACH. SITTER AT BEDSIDE. RESPIRATIONS EVEN AND UNLABORED. NO SIGNS OF DISTRESS NOTED.
[2019-10-24] MEDS: MAGNESIUM SULFATE 1 GM, THIAMINE HCL 100 MG in NS 100 ML IV SCH (21:07)
--- NOTE | 2019-10-24 23:45 | NUR ---
AGITATION PATIENT AWAKE, SHOUTING, COMPLAINS OF NAUSEA, ATTEMPTING TO GET OUT OF BED, PULLING ON HERRERA CATHETER. MEDICATED ORDERED, WILL MONITOR.
[2019-10-25 00:32] VITALS: BP_SYST 105
[2019-10-25] MEDS: LORazepam 2 MG/ML VIAL IVP PRN (03:13)
--- NOTE | 2019-10-25 03:27 | NUR ---
AGITATION PATIENT ATTEMPTING TO GET OUT OF BED, DISORIENTED, AGITATED AND SHOUTING. MEDICATED WITH ATIVAN ORDERED. BED ALARM REMAINS ON, BED IN LOWEST POSITION, SITTER AT BEDSIDE. WILL CONTINUE TO MONITOR.
--- NOTE | 2019-10-25 03:44 | NUR ---
PAGED DR. TASHIA LAO (PLAST[employer] MOLD FILLER FOR DR. HORTON) PAGED AT THIS TIME FOR ORDERS DUE TO PATIENT'S AGITATION.
[2019-10-25] MEDS ORDERED: LORazepam 2 MG/ML VIAL IVP ONE (04:00)
--- NOTE | 2019-10-25 04:05 | NUR ---
SPOKE WITH DR LAO PATIENT AGITATED, AGGRESSIVE, AND TRYING TO PHYSICALLY HIT SITTER. SPOKE WITH DR LAO. ORDERS RECEIVED FOR ATIVAN 1MG IVP ONCE STAT AND BILATERAL SOFT WRIST RESTRAINTS.
[2019-10-25] MEDS: INSULIN REGULAR, HUMAN 100 UNITS/ML, 10 ML VIAL (humuLIN R) SUBCUT PRN ×2 (06:25→11:18)
--- NOTE | 2019-10-25 06:50 | NUR ---
Closing Note Awake in bed. Bilateral wrist restraints remain in place. Patient calm at the moment. No signs of distress noted. Bed in lowest position, bed alarm on, sitter at bedside. Will continue to monitor until endorsed to AM nurse.
[2019-10-25 07:26] LABS: CALCIUM 8.3 mg/dL (8.4-11.0); CREATININE 0.88 mg/dL (0.55-1.30); POTASSIUM 3.4 mmol/L (3.5-5.1); TOTAL BILIRUBIN 1.1 mg/dL (0.0-1.0)
[2019-10-25] MEDS: LEVOTHYROXINE SODIUM 0.1 MG TABLET PO SCH (08:03)
[2019-10-25] MEDS: PANTOPRAZOLE SODIUM 40 MG/VIAL (PROTONIX) IVP SCH (08:03)
[2019-10-25] MEDS: MESALAMINE 400 MG CAPSULE.DR PO SCH ×2 (08:04→21:09)
[2019-10-25] MEDS: QUEtiapine FUMARATE 25 MG TABLET PO SCH ×2 (08:04→21:09)
[2019-10-25 08:14] VITALS: BP_SYST 102
--- NOTE | 2019-10-25 08:15 | NUR ---
am rounds: Patient is oriented x2. Calm at this time, fed himself for breakfast. safety precautions in place. Call light within reach.
[2019-10-25] MEDS ORDERED: THIAMINE HCL 100 MG TABLET PO ONE (09:45)
--- NOTE | 2019-10-25 11:00 | NUR ---
Rounds: Patient is calm. ON the phone talking to the son.
[2019-10-25] MEDS: CARVEDILOL 6.25 MG TABLET (COREG) PO SCH ×2 (11:12→21:00)
--- NOTE | 2019-10-25 13:12 | NUR ---
Nutrition F/U Admitting Diagnosis: Alcohol withdrawal Medical History Comment: PMH: cardiomyopathy, HTN, hypothyroidism, heavy alcohol use per physician notes Pt also found w/ alcohol-induced pancreatitis, N/V, ARF, delirium tremens, metabolic encephalopathy, UC per physician notes Per MD notes 10/24: Severe sepsis w/ bandemia and PTSD per 's report. Subjective Information Per EMR is confused, agitated, shouting and attempting to get out of bed last night. Last BM 10/23 x4, abd is soft and nondistended and PO intake remains poor. RD noted elevated BG and LFT lab values. Pt may benefit from CCHO diet w/ Glucerna TID to better control BG levels. RD endorsed to RN. Current Diet Order/Nutrition Support Mechanical Soft Diet w/ Ensure Enlive TID x 3 days Pertinent Medications SSI, synthroid, zofran, folic acid, MVI, seroquel, Mg sulfate, thiamine Pertinent Labs 10/24 BG 193 H (trending up), POC BG 320 H (trending up) , AST 145 H, ALT 144H Height (Feet) 5 feet Height (Inches) 6.00 inches Weight (Pounds) 150 pounds Weight (Calculated Kilograms) 68.914638 kilograms Patient Weight 68.039 kg Body Mass Index 24.21 kg/m2 Skin Integrity Comment: Florentino scale: 18; per nursing notes, +bruise to lateral L/R arm, ecchymosis to L shoulder. No edema noted. Current % PO Poor: 32% average of 3 days NEW Estimated Energy Expenditure (kcals/day) 2157-5850 kcal/day (30-35 kcal/kg CBW for sepsis) NEW Estimated Protein Required (g/day) 68-102 gm/day (1-1.5 gm/kg CBW for sepsis and ARF predialysis) Estimated Fluid Required (l/day) Per physician d/t ARF Problem/Etiology/Signs/Symptoms Inadequate nutritional intakes related to possible displacement of wholesome nutrition as evidenced by Hx of heavy alcohol use and current NPO status. *ongoing Unintentional wt loss related to lack of preference for foods as evidenced by "picky eating" and possible 35# wt loss within past 2 years per report. *ongoing Altered nutrition related labs r/t unknown etiology AEB elevated BG and POC labs values. (* new 10/25/2019) Expected Outcomes/Goals - Monitor appetite, and PO intakes w/ goal of pt meeting at least 50% of estimated nutritional needs, labs trending WNL, normal GI function, and skin integrity/wt maintenance Dietitian Recommendations * Recommend CCHO diet w/ Glucerna TID. ONS will provide additional 660 kcal and 30gm protein daily. * Recommend: appetite stimulant. Follow Up High Risk: F/U in 2-3days
--- NOTE | 2019-10-25 13:26 | NUR ---
Dietitian Recommendations * Recommend [facility] diet w/ Glucerna TID. ONS will provide additional 660 kcal and 30gm protein daily. * Recommend: appetite stimulant. Please see Nutrition F/U note for details. ALON WILDER
--- NOTE | 2019-10-25 14:19 | NUR ---
PHYSICAL THERAPY CO-SIGN The Physical Therapy Progress Notes documented by Scientific Informatics Leader have been reviewed. Reviewed/Co-Signed by: Rakesh Nunez PT Documentation Done by: JOJO BURK PTA Addendum: 10/25/19 at 1420 by Rakesh Nunez PT Amended: Links added.
[2019-10-25 16:33] VITALS: BP_SYST 93
--- NOTE | 2019-10-25 18:18 | NUR ---
End of shift: Needs attended. NO change in assessment.
--- NOTE | 2019-10-25 19:25 | NUR ---
Received report from day shift nurse. Pt is lying in bed without any distress noted. Skin is warm and dry to touch. No signs or symptoms of hypoglycemia or hyperglycemia noted. CAMRYN PICC noted with the dressing dry and intact. Snowden cath to gravity drainage noted with yellowish urine. Fall and safety precautions are in place. Direct Observer is in the room with pt.
[2019-10-25 20:00] VITALS: BP_SYST 94
[2019-10-25] MEDS: PANTOPRAZOLE SODIUM 40 MG TAB PO SCH (21:09)
--- NOTE | 2019-10-25 21:09 | NUR ---
Pt is sleeping, but easily arousable. HS medications given and no difficulty swallowing noted. Coreg held due to low BP. Fall and safety precautions are in place. Direct Observer is in the room with pt.
[2019-10-26 00:08] VITALS: BP_SYST 97
[2019-10-26] MEDS: INSULIN REGULAR, HUMAN 100 UNITS/ML, 10 ML VIAL (humuLIN R) SUBCUT PRN ×4 (00:11→23:22)
--- NOTE | 2019-10-26 00:11 | NUR ---
Accucheck 293 and skin remains warm and dry to touch. Regular Humulin Insulin 6 units given SQ. Pt declined HS snacks. Fall and safety precautions are in place. Direct Observer is in the room with pt.
--- NOTE | 2019-10-26 02:30 | NUR ---
Pt is sleeping in bed without any distress noted. Direct Observer is in the room with pt.
--- NOTE | 2019-10-26 04:30 | NUR ---
Pt is asleep in bed. No acute distress noted at this time. Fall and safety precautions are in place. Direct Observer is in the room with pt.
--- NOTE | 2019-10-26 05:14 | NUR ---
Accucheck 112 and no Insulin coverage needed. Skin remains warm and dry to touch. Fall and safety precautions are in place. Direct Observer is in the room with pt.
--- NOTE | 2019-10-26 06:51 | NUR ---
Pt is awake and resting comfortably in bed. No seizure activity noted this shift. All pt's needs were attended to. CAMRYN PICC is in place with the dressing dry and intact. Snowden Cath to gravity drainage is intact. Direct Observer is in the room with pt. Will endorse to day shift nurse.
--- NOTE | 2019-10-26 07:15 | NUR ---
OPENING NOTES PT AWAKE, ALERT, AND ORIENTED. NONLABORED BREATHING NOTED ON ROOM AIR, O2 AT 96%. PICC LINE INTACT AND PATENT, NO SIGNS OF INFILTRATION NOTED. HERRERA CATHETER INTACT AND DRAINING. PT DENIES PAIN AND SOB AT THIS TIME. BED LOCKED AND IN LOWEST POSITION. ALL NEEDS MET. CALL LIGHT IN REACH. FALL AND ASPIRATION PRECAUTIONS IN PLACE. CONTINUE TO MONITOR.
[2019-10-26 08:00] VITALS: BP_SYST 107
[2019-10-26] MEDS: QUEtiapine FUMARATE 25 MG TABLET PO SCH ×2 (09:33→20:09)
[2019-10-26] MEDS: LEVOTHYROXINE SODIUM 0.1 MG TABLET PO SCH (09:33)
[2019-10-26] MEDS: THIAMINE HCL 100 MG TABLET PO SCH (09:33)
[2019-10-26] MEDS: PANTOPRAZOLE SODIUM 40 MG TAB PO SCH ×2 (09:33→20:08)
[2019-10-26] MEDS: MESALAMINE 400 MG CAPSULE.DR PO SCH ×2 (09:34→21:39)
[2019-10-26] MEDS: CARVEDILOL 6.25 MG TABLET (COREG) PO SCH ×2 (09:36→20:08)
--- NOTE | 2019-10-26 09:40 | NUR ---
ROUTINE MEDS' ROUTINE MEDS ADMINISTERED ORDERED PER MD, EDUCATION GIVEN, TOLERATED WELL. NO ACUTE DISTRESS NOTED. CALL LIGHT IN REACH. CONTINUE TO MONITOR.
--- NOTE | 2019-10-26 11:50 | NUR ---
ACCUCHECK DONE ACCUCHECK DONE, INSULIN COVERAGE ADMINISTERED PER SLIDING SCALE, TOLERATED WELL. CONTINUE TO MONITOR.
--- NOTE | 2019-10-26 12:07 | NUR ---
PHYSICAL THERAPY CO-SIGN The Physical Therapy Progress Notes documented by Victim Advocate have been reviewed. Reviewed/Co-Signed by: Rakesh Nunez PT Documentation Done by: Galileo Li PTA Addendum: 10/26/19 at 1208 by Rakesh Nunez PT Amended: Links added.
[2019-10-26 12:31] VITALS: BP_SYST 116
--- NOTE | 2019-10-26 14:00 | NUR ---
ROUNDS PT SITTING UP IN BED WATCHING TV. PT DENIES PAIN AND SOB AT THIS TIME. NO ACUTE DISTRESS NOTED. ALL NEEDS MET. CALL LIGHT IN REACH. CONTINUE TO MONITOR.
--- NOTE | 2019-10-26 15:30 | NUR ---
COLLECTED SPECIMEN FOR LAB, TOLERATED WELL, GIVEN TO LAB.
[2019-10-26 16:35] VITALS: BP_SYST 113
--- NOTE | 2019-10-26 18:00 | NUR ---
PICC LINE DRESSING CHANGE AND ACCUCHECK PICC LINE DRESSING CHANGE DONE, TOLERATED WELL. ACCUCHECK DONE, INSULIN COVERAGE ADMINISTERED PER SLIDING SCALE. ALL NEEDS MET. CALL LIGHT IN REACH. CONTINUE TO MONITOR.
--- NOTE | 2019-10-26 18:25 | NUR ---
CLOSING NOTES PT AWAKE, ALERT, AND ORIENTED. NONLABORED BREATHING NOTED ON ROOM AIR. PT DENIES PAIN AND SOB AT THIS TIME. PICC LINE INTACT AND PATENT, NO SIGNS OF INFILTRATION NOTED. HERRERA CATHETER INTACT AND DRAINING. PT CLEAN AND DRY. NO ACUTE DISTRESS NOTED. BED LOCKED AND IN LOWEST POSITION. ALL NEEDS MET. CALL LIGHT IN REACH. ALL AND ASPIRATION PRECAUTIONS IN PLACE. WILL ENDORSE TO NOC NURSE.
--- NOTE | 2019-10-26 19:30 | NUR ---
OPENING NOTES RECEIVED SBAR REPORT FROM DAY SHIFT RN. PT AWAKE, ALERT & ORIENTED X3. PT RESTING IN BED. NO S/S OF DISTRESS NOTED. BREATHING EVEN AND UNLABORED TO ROOM AIR. BED ALARM ON, LOCKED IN LOWEST POSITION. SIDE RAILS X3. HERRERA CATHETER INTACT, DRAINING BY GRAVITY. SITTER PRESENT. SAFETY AND FALL PRECAUTIONS MAINTAINED. WILL CONTINUE TO MONITOR.
[2019-10-26 20:00] VITALS: BP_SYST 119
--- NOTE | 2019-10-26 20:08 | NUR ---
MEDICATION PASS SCHEDULED MEDICATIONS ADMINISTERED. DISCUSSED MEDICATIONS ACTION AND POTENTIAL SIDE EFFECTS. PT WAS COOPERATIVE AT THIS TIME. PT ADÁN ANY PAIN OR SHORTNESS OF BREATH. SITTER PRESENT. BED ALARM ON, LOCKED IN LOWEST POSITION. SAFETY AND FALL PRECAUTIONS IN PLACE. WILL CONTINUE TO MONITOR.
[2019-10-26 22:19] VITALS: BP_SYST 110
--- NOTE | 2019-10-26 23:20 | NUR ---
ACCU-CHECK BLOOD SUGAR OF 153. ADMINISTERED 2 UNITS OF INSULIN PER SLIDING SCALE. PT TOLERATING WELL. NO S/S OF DISTRESS NOTED AT THIS TIME. BREATHING EASY AND UNLABORED TO ROOM AIR. HERRERA CATHETER INTACT, DRAINING BY GRAVITY. SITTER PRESENT. SIDE RAILS X3. BED ALARM ON, LOCKED IN LOW. SAFETY,FALL, AND ASPIRATIONS PRECAUTIONS IN PLACE. WILL CONTINUE TO MONITOR.
--- NOTE | 2019-10-27 01:35 | NUR ---
RN ROUNDS PT RESTING IN BED WITH EYES CLOSED. ABLE TO SEE RISE AND FALL RESPIRATIONS. BREATHING UNLABORED TO ROOM AIR. NO SIGNS AND SYMPTOMS OF ACUTE DISTRESS NOTED. BED ALARM ON, LOCKED IN LOW. SITTER PRESENT. SAFETY, FALL, AND ASPIRATIONS IN PLACE. WILL CONTINUE TO MONITOR.
--- NOTE | 2019-10-27 03:40 | NUR ---
RN ROUNDS PT AWAKE, RESTING IN BED. NO S/S OF DISTRESS NOTED. BREATHING EVEN AND UNLABORED TO ROOM AIR. HERRERA CATHETER INTACT, DRAINING BY GRAVITY. BED LOCKED IN LOWEST LEVEL. SITTER AT BEDSIDE. CALL LIGHT WITHIN REACH. CLOSE TO NURSING STATION. SAFETY AND FALL PRECAUTIONS MAINTAINED. WILL CONTINUE TO MONITOR.
--- NOTE | 2019-10-27 05:49 | NUR ---
ACCU-CHECK BLOOD SUGAR OF 137. NO INSULIN COVERAGE PER SLIDING SCALE AT THIS TIME. PT AGITATED, TRYING TO GET OUT OF BED. REORIENTED. SITTER AT BEDSIDE. CALL LIGHT WITHIN REACH. SAFETY AND FALL PRECAUTIONS IN PLACE. WILL CONTINUE TO MONITOR.
--- NOTE | 2019-10-27 06:41 | NUR ---
CLOSING NOTES PT RESTING IN BED. NO S/S OF DISTRESS NOTED. BREATHING EVEN AND UNLABORED TO ROOM AIR. BED ALARM ON, LOCKED IN LOWEST POSITION. SIDE RAILS X3. HERRERA CATHETER INTACT, DRAINING BY GRAVITY. SITTER PRESENT. SAFETY AND FALL PRECAUTIONS MAINTAINED. WILL CONTINUE TO MONITOR UNTIL ENDORSE TO DAY SHIFT RN.
--- NOTE | 2019-10-27 08:00 | NUR ---
INITIAL NOTES Sitting up in bed, awake and oriented to name and place only. No shortness of breath on room air. Denies any pain. Right upper arm picc line intact. Snowden catheter in place draining yellowish urine. Expressed desire to talk to the doctor and go home. Sitter at bedside. Fall and safety checks in place. Will continue to monitor.
[2019-10-27 08:05] VITALS: BP_SYST 109
[2019-10-27] MEDS: MESALAMINE 400 MG CAPSULE.DR PO SCH (09:05)
[2019-10-27] MEDS: PANTOPRAZOLE SODIUM 40 MG TAB PO SCH (09:06)
[2019-10-27] MEDS: QUEtiapine FUMARATE 25 MG TABLET PO SCH (09:06)
[2019-10-27] MEDS: LEVOTHYROXINE SODIUM 0.1 MG TABLET PO SCH (09:06)
[2019-10-27] MEDS: THIAMINE HCL 100 MG TABLET PO SCH (09:06)
[2019-10-27] MEDS: CARVEDILOL 6.25 MG TABLET (COREG) PO SCH (09:06)
--- NOTE | 2019-10-27 09:30 | NUR ---
ROUNDS Patient is alert, calm and oriented. Ambulates around the room and feeds self independently. Safety checks done. Will continue to monitor.
--- NOTE | 2019-10-27 11:15 | NUR ---
ROUNDS Snowden catheter discontinued as ordered. Patient expressed desire to go home by himself. He said that he can drive home and has his car parked outside of the building. Asked for procurement services manager advice to determine safety.
--- NOTE | 2019-10-27 11:33 | NUR ---
SS NOTES: MAP COLORER was referred by nursing to see patient for mental health assessment for a safe discharge. MAP COLORER met with patient at bedside. Pt is alert and oriented x4. Pt wishes to go home instead of a discharge to SNF. Pt denies any weakness and does not appear to be confused. Pt stated he will sign AMA if not discharge to home. Pt states he will follow up with his PCP and is already connected to therapy sessions on Mondays for his alcohol addiction. MAP COLORER phoned spouse Delaney, who states she is agreeable to his discharge home and will pick the patient up when ready. No risk for discharge home identified. Tona ROMO notified. MAP COLORER will remain available when needed.
[2019-10-27 11:42] VITALS: BP_SYST 111
[2019-10-27 12:20] VITALS: BP_SYST 111
--- NOTE | 2019-10-27 12:57 | NUR ---
Discharge Patient is upset and wants to go home immediately. Did not want to wait for the rest of his discharge packet. Attempted to educate on home meds but also refused and said he already knows what to take at home. Removed PICC line, no active bleeding noted. All belongings sent with patient. Walked to the lobby, picked up by in stable condition.
--- NOTE | 2019-10-27 13:39 | NUR ---
Nutrition F/U Admitting Diagnosis: Alcohol withdrawal Medical History Comment: PMH: cardiomyopathy, HTN, hypothyroidism, heavy alcohol use per physician notes Pt also found w/ alcohol-induced pancreatitis, N/V, ARF, delirium tremens, metabolic encephalopathy, UC per physician notes Per MD notes 10/24: Severe sepsis w/ bandemia and PTSD per 's report. 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 Pt is confused and is not able to provide information. Sitter at bedside. Per EMR, abd is soft and nondistended. BM 10/26 x4. Per MD, pt is anxious to go home. Current Diet Order/Nutrition Support: Mechanical soft CCHO Diet w/ Glucerna TID x 2 days Pertinent Medications: SSI, synthroid, seroquel, thiamine, protonix Pertinent Labs: No new labs. 10/24 BG 193 H (trending up), 10/25 POC BG 210H, 10/25 Coronavirus PCR-pending Height (Feet): 5 feet Height (Inches): 6.00 inches Weight (Pounds): 50 pounds Weight (Calculated Kilograms) : 68.444035 kilograms Body Mass Index: 24.21 kg/m2 Skin Integrity Comment: Florentino scale: 18; per nursing notes, ecchymosis to lateral L/R arm, ecchymosis to L shoulder. No edema noted. Current % PO Poor: 36% average of 3 days Estimated Energy Expenditure (kcals/day) 3522-8622 kcal/day (30-35 kcal/kg CBW for sepsis) Estimated Protein Required (g/day) 68-102 gm/day (1-1.5 gm/kg CBW for sepsis and ARF predialysis) Estimated Fluid Required (l/day) Per physician d/t ARF Problem/Etiology/Signs/Symptoms Inadequate nutritional intakes related to possible displacement of wholesome nutrition as evidenced by Hx of heavy alcohol use and current NPO status. *remains w/ poor PO intake Unintentional wt loss related to lack of preference for foods as evidenced by "picky eating" and possible 35# wt loss within past 2 years per report. *ongoing Altered nutrition related labs r/t unknown etiology AEB elevated BG and POC labs values. (*ongoing) Expected Outcomes/Goals - Monitor appetite, and PO intakes w/ goal of pt meeting at least 70% of estimated nutritional needs, labs trending WNL, normal GI function, and skin integrity/wt maintenance Dietitian Recommendations * Recommend continue: CCHO diet w/ Glucerna TID. ONS will provide additional 660 kcal and 30gm protein daily. * Recommend: appetite stimulant. Follow Up High Risk: F/U in 2-3days
--- NOTE | 2019-10-27 13:50 | NUR ---
Dietitian Recommendations * Recommend [facility]/ Gluc[facility] TID. ONS will provide additional 660 kcal and 30gm protein daily. * Recommend: appetite stimulant. Please see Nutrition F/U note for details. ALON WILDER
== END 2019-10-27 12:51 | disposition home or self-care (01) | DRG 871 ==
LOC: SED 23:27 → STU 10-17 00:44 → SIC 10-18 09:55 → STU 10-21 18:36 → SMU 10-25 09:49
PROVIDERS: ADMIT Internal Medicine Hospice and Palliative Medicine; ATTEND Internal Medicine Hospice and Palliative Medicine
PROC: 02HV33Z Insertion of Infusion Device into Superior Vena Cava, Percutaneous Approach (ICD-10-PCS; principal; 2019-10-19)
PROC: B548ZZA Ultrasonography of Superior Vena Cava, Guidance (ICD-10-PCS; 2019-10-19)
DX: A41.9 Sepsis, unspecified organism (principal); N17.0 Acute kidney failure with tubular necrosis; G93.41 Metabolic encephalopathy; J69.0 Pneumonitis due to inhalation of food and vomit; K85.20 Alcohol induced acute pancreatitis without necrosis or infection; E87.2 Acidosis; F10.239 Alcohol dependence with withdrawal, unspecified; I42.0 Dilated cardiomyopathy; I42.6 Alcoholic cardiomyopathy; D69.6 Thrombocytopenia, unspecified; E03.9 Hypothyroidism, unspecified; E83.51 Hypocalcemia; Z60.2 Problems related to living alone; E16.2 Hypoglycemia, unspecified; Z20.828 Contact with and (suspected) exposure to other viral communicable diseases; I10 Essential (primary) hypertension; K70.30 Alcoholic cirrhosis of liver without ascites; R65.20 Severe sepsis without septic shock; Z79.899 Other long term (current) drug therapy; Z87.891 Personal history of nicotine dependence; Z95.810 Presence of automatic (implantable) cardiac defibrillator; Z88.8 Allergy status to other drugs, medicaments and biological substances
CPT/HCPCS: 36415; 71045; 76700-TC; 80053; 80061; 80074; 80076; 80307; 81000-TC; 82140-TC; 82150-TC; 82962; 83690-TC; 83735-TC; 83880; 84100-TC; 84132-TC; 84443-TC; 84484; 85007; 85025; 85027; 85610-TC; 85730-TC; 87040-TC; 87081; 87086; 93005; 93306; 96372; 96374; 96375; 97110-GP; 97112-GP; 97116-GP; 99285; C1751; C9113; G0378; G0482; J0610; J0696; J0780; J1815; J1885; J2060; J2185; J2405; J2543; J3411; J3475; J3480; J3490; J7030; J7050; J7060; J7120; Q9967; U0002

== ENCOUNTER 2020-07-15 06:43 | Observation (INO) | payer OTHER, SELFPAY ==
[~2020-07-15] VITALS: Ht 165.1 cm; Wt 60.3 kg
[2020-07-15 06:43] VITALS: BP_SYST 128
--- NOTE | 2020-07-15 06:43 | NUR ---
Placed in room 1. Placed on equipment monitor phototypesetting, blood pressure machine and pulse oximeter. To gown for exam. Side rails up.
--- NOTE | 2020-07-15 06:45 | NUR ---
Patient was BIBA from home c/o defibrillator shocking him 3 times today. Pt was walking down his hallway when he felt the shock. Pt denies any chest pain Or shortness of breath. Pt has hx of HTN and cardiac disorder. Pt states defibrillator was placed due to "weak heart." No other injuries/complaints per patient or noted.
--- NOTE | 2020-07-15 06:57 | NUR ---
DR GARCIA AT BEDSIDE FOR EVALUATION
[2020-07-15] MEDS ORDERED: ASPIRIN 81 MG TAB.CHEW PO ONE (07:00)
[2020-07-15] MEDS ORDERED: NITROGLYCERIN 0.4 MG TAB.SUBL SL ONE (07:00)
[2020-07-15 07:12] LABS: EOSINOPHILS % (AUTO) 0.1 % (0.0-4.0); HEMATOCRIT 38.6 % (36-54); HEMOGLOBIN 13.2 g/dL (14.0-18.0); LYMPHOCYTES % (AUTO) 25.2 % (20.5-51.5); MEAN CORPUSCULAR HEMOGLOBIN 39 pg (27-31); MEAN CORPUSCULAR HGB CONC 34 % (32-36); MEAN CORPUSCULAR VOLUME 112 fL (79.0-98.0); MONOCYTES # (AUTO) 0.3 K/uL (0.0-1.0); NEUTROPHILS # (AUTO) 2.7 K/uL (1.8-7.7); NEUTROPHILS % (AUTO) 66.7 % (40.0-70.0); PLATELET COUNT (AUTO) 94 K/uL (130-430); RED BLOOD CELL COUNT(AUTO) 3.43 MIL/uL (4.2-6.2); RED CELL DISTRIBUTION WIDTH 15.1 % (9.0-15.0)
[2020-07-15] MEDS ORDERED: METOPROLOL TARTRATE 5 MG/5 ML VIAL IVP ONE (07:15)
[2020-07-15] MEDS ORDERED: NACL 0.9% 1,000 ML IV ONE (07:15)
[2020-07-15] MEDS ORDERED: METOPROLOL TARTRATE 5 MG/5 ML VIAL ONE (07:16)
[2020-07-15] MEDS ORDERED: ASPIRIN 325 MG TABLET ONE (07:16)
--- NOTE | 2020-07-15 07:25 | NUR ---
REPORT RECEIVED FROM DEMETRIUS KLEIN FOR CONTINUING CARE
[2020-07-15] MEDS ORDERED: DILTIAZEM HCL 25 MG/5 ML VIAL IVP ONE (07:30)
--- NOTE | 2020-07-15 07:30 | NUR ---
COVID SWAB DONE AND SENT TO LAB
[2020-07-15 09:07] LABS: POTASSIUM 3.9 mmol/L (3.5-5.1)
[2020-07-15 09:08] LABS: CALCIUM 7.1 mg/dL (8.4-11.0); CREATININE 0.9 mg/dL (0.55-1.30)
[2020-07-15 09:15] LABS: ALBUMIN 3.4 g/dL (3.4-4.8); TOTAL BILIRUBIN 2.6 mg/dL (0.0-1.0)
[2020-07-15] MEDS ORDERED: GABAPENTIN 300 MG CAPSULE PO ONE (09:30)
--- NOTE | 2020-07-15 09:57 | NUR ---
PT CONTINUES TO IMPROVE, AND HR GOES DOWN BETWEEN 98-104. PT ALERT AND ORIENTED.
--- NOTE | 2020-07-15 09:58 | NUR ---
REPORT FROM ER IS THAT MD DEUTSCH FROM [facility] IS REFUSING TO TAKE HIS PT WELL THE FUND RAISER MD. MD MANN STILL ATTEMPTING TO FIND MD HORTON.
--- NOTE | 2020-07-15 10:06 | NUR ---
BOWEL MOVEMENT , PT USING BEDPAN INDEPENDENTLY.
--- NOTE | 2020-07-15 10:55 | NUR ---
DR MANN SPEAKING WITH DR HORTON.
--- NOTE | 2020-07-15 11:10 | NUR ---
SPOKE WITH [employer] AND INFORMATION REQUESTED, GIVEN.
--- NOTE | 2020-07-15 11:37 | NUR ---
RECEIVED ADMITTING ORDERS FROM DR HORTON, CALLED FOR TELE BED, RECEIVED BED ASSIGNMENT, PT INFORMED OF ADMISSION.
--- NOTE | 2020-07-15 11:39 | NUR ---
DR HERNANDEZ HERE TO EVALUATE PATIENT
--- NOTE | 2020-07-15 12:08 | NUR ---
ADMISSION NOTE Received patient from ER via wade, received report from ER/ RN. Patient admitted with diagnosis of Shock by AICD. Patient oriented to hospital routine, call light, toileting and safety-patient verbalized understanding.
--- NOTE | 2020-07-15 12:09 | NUR ---
SPOKE TO [employer] FOR PACEMAKER, THEY WILL BE HERE IN APPROX [address] WILL CALL DR HERNANDEZ AFTER.
--- NOTE | 2020-07-15 12:10 | NUR ---
CHARGE NURSE NOTIFIED OF PACEMAKER REP COMING IN 3 HOURS
[2020-07-15] MEDS ORDERED: CARVEDILOL 6.25 MG TABLET (COREG) PO SCH ×3 (12:15→21:00)
[2020-07-15 12:25] VITALS: BP_SYST 127
[2020-07-15] MEDS: chlordiazePOXIDE HCL 25 MG CAPSULE PO PRN (12:36)
[2020-07-15] MEDS ORDERED: LORazepam 2 MG/ML VIAL IVP PRN (14:00)
--- NOTE | 2020-07-15 16:00 | NUR ---
rounds defeb insurance account representative came evaluate the pt's machine and spoke with dr driver. no sob noted. call light within reached.
--- NOTE | 2020-07-15 16:58 | NUR ---
ATTENDING MD DR HORTON WAS CALLED, RE: MEDICATION RECONCILLATION. SPOKE TO SUKHDEEP
[2020-07-15 19:00] VITALS: BP_SYST 131
--- NOTE | 2020-07-15 19:00 | NUR ---
closing notes patient noted with periods of agitation . pt instructed to be calm so pre occupied with his phone. no sob oted. bed to the lowest position and side rails up and locked. call light within reached otherwise will ambulate to the nurses station.
[2020-07-15] MEDS: LEVOTHYROXINE SODIUM 0.1 MG TABLET PO SCH (19:15)
[2020-07-15 20:00] VITALS: BP_SYST 131
[2020-07-15] MEDS: CARVEDILOL 12.5 MG TABLET (COREG) PO SCH (21:20)
[2020-07-15] MEDS: GABAPENTIN 400 MG CAPSULE PO SCH (21:24)
--- NOTE | 2020-07-15 21:35 | NUR ---
AT 2114 PT TOLD NURSE THAT "I NEED TO GO HOME FOR MY WALLET." PT WAS ASKED ABOUT HIS PRIORITIES - HIS WALLET OR TREATMENT. PT BEGAN GIVING TANGENTAL ANSWER ABOUT HOW HE CAME TO THE HOSPITAL. FINALLY, AFTER BEING ASKED AGAIN, PT RESPONDED THAT HIS WALLET WAS MORE IMPORTANT THAN THE TREATMENT. TEN MINUTES LATER (2124) AFTER BEING GIVEN HIS HS MEDS AND AGREEING TO WAIT ONE HOUR BEFORE PREPARING HIM TO GO AMA, PT TOLD NURSE THAT HE WANTS TO "KNOW WHAT MY SCHEDULE IS TOMORROW...WHAT DOCTORS WILL SEE ME." PT WAS TOLD THAT HE WILL NOT SEE HIS DOCTORS TOMORROW IF HE GOES AMA. PT THEN STATED THAT "I DON'T WANT TO GO AMA. I'VE NEVER DONE THAT BEFORE. I'VE BEEN IN THE HOSPITAL A LOT." PT THEN AGREED TO NOT GO AMA.
[2020-07-16 06:58] LABS: BASOPHILS % (AUTO) 0.5 % (0.0-2.0); EOSINOPHILS % (AUTO) 0.7 % (0.0-4.0); HEMATOCRIT 37.6 % (36-54); HEMOGLOBIN 12.9 g/dL (14.0-18.0); LYMPHOCYTES # (AUTO) 1.3 K/uL (1.0-5.5); LYMPHOCYTES % (AUTO) 32.1 % (20.5-51.5); MEAN CORPUSCULAR HEMOGLOBIN 39 pg (27-31); MEAN CORPUSCULAR HGB CONC 34 % (32-36); MEAN CORPUSCULAR VOLUME 112 fL (79.0-98.0); MONOCYTES # (AUTO) 0.2 K/uL (0.0-1.0); MONOCYTES % (AUTO) 5.6 % (1.7-9.3); NEUTROPHILS # (AUTO) 2.5 K/uL (1.8-7.7); NEUTROPHILS % (AUTO) 61.1 % (40.0-70.0); PLATELET COUNT (AUTO) 79 K/uL (130-430); RED BLOOD CELL COUNT(AUTO) 3.35 MIL/uL (4.2-6.2); RED CELL DISTRIBUTION WIDTH 14.9 % (9.0-15.0); WHITE BLOOD COUNT (AUTO) 4.1 K/uL (4.8-10.8)
[2020-07-16] MEDS ORDERED: LEVOTHYROXINE SODIUM 0.1 MG TABLET PO SCH (07:00)
[2020-07-16 08:00] VITALS: BP_SYST 151
[2020-07-16 08:02] LABS: ALBUMIN 3.7 g/dL (3.4-4.8); CALCIUM 8.4 mg/dL (8.4-11.0); CREATININE 0.74 mg/dL (0.55-1.30); POTASSIUM 3.7 mmol/L (3.5-5.1); THYROID STIMULATING HORMONE 5.62 uIu/mL (0.36-3.74)
[2020-07-16] MEDS ORDERED: THIAMINE HCL 100 MG TABLET ONE (08:46)
[2020-07-16] MEDS: chlordiazePOXIDE HCL 25 MG CAPSULE PO PRN (09:00)
[2020-07-16] MEDS ORDERED: THIAMINE HCL 100 MG TABLET PO SCH (09:00)
[2020-07-16] MEDS: GABAPENTIN 400 MG CAPSULE PO SCH (09:00)
[2020-07-16] MEDS ORDERED: FOLIC ACID 1 MG TABLET PO SCH (09:00)
[2020-07-16] MEDS: LEVOTHYROXINE SODIUM 0.1 MG TABLET PO SCH (09:00)
[2020-07-16] MEDS: CARVEDILOL 12.5 MG TABLET (COREG) PO SCH (09:01)
[2020-07-16 10:57] VITALS: BP_SYST 133
--- NOTE | 2020-07-16 12:00 | NUR ---
closing notes pt was discharged after seen by dr mosher and dr jarvis. pt was was wheeled outside and was picked by his friend. ivl and id band was removed. no sob noted. med rec explained to patient and appt with pmd .
== END 2020-07-16 17:00 | disposition home or self-care (01) ==
LOC: SED 06:43 → STU 11:32 → INTOOBSV 11:32 → STU 12:15
PROVIDERS: ADMIT Internal Medicine Hospice and Palliative Medicine; ATTEND Internal Medicine Hospice and Palliative Medicine
DX: T82.118A Breakdown (mechanical) of other cardiac electronic device, initial encounter (principal); Z20.822 Contact with and (suspected) exposure to COVID-19; I10 Essential (primary) hypertension; I50.9 Heart failure, unspecified; I42.6 Alcoholic cardiomyopathy; K86.1 Other chronic pancreatitis; E03.9 Hypothyroidism, unspecified; F10.20 Alcohol dependence, uncomplicated; Z95.810 Presence of automatic (implantable) cardiac defibrillator; Z79.899 Other long term (current) drug therapy; Z79.890 Hormone replacement therapy
CPT/HCPCS: 36415 ×2; 71045; 80053 ×2; 83880; 84443; 84484 ×2; 85025 ×2; 87426; 93005 ×2; 96361; 96374; 96375; 99285; G0378; J3490 ×2; 96360

== ENCOUNTER 2021-01-08 11:51 | Inpatient (IN) | payer BC, SELFPAY ==
[~2021-01-08] VITALS: Ht 167.6 cm; Wt 68.0 kg
[2021-01-08 12:06] VITALS: BP_SYST 120; BP_SYST 129
[2021-01-08] MEDS ORDERED: NACL 0.9% 1,000 ML IV ONE ×3 (12:15→14:15)
[2021-01-08 12:26] LABS: BASOPHILS % (AUTO) 0.6 % (0.0-2.0); EOSINOPHILS % (AUTO) 0.1 % (0.0-4.0); HEMATOCRIT 40.2 % (36-54); HEMOGLOBIN 13.7 g/dL (14.0-18.0); LYMPHOCYTES # (AUTO) 0.6 K/uL (1.0-5.5); MEAN CORPUSCULAR HEMOGLOBIN 38 pg (27-31); MEAN CORPUSCULAR HGB CONC 34 % (32-36); MEAN CORPUSCULAR VOLUME 111 fL (79.0-98.0); MONOCYTES # (AUTO) 0.4 K/uL (0.0-1.0); MONOCYTES % (AUTO) 5.2 % (1.7-9.3); NEUTROPHILS # (AUTO) 6.3 K/uL (1.8-7.7); NEUTROPHILS % (AUTO) 86.1 % (40.0-70.0); PLATELET COUNT (AUTO) 109 K/uL (130-430); RED BLOOD CELL COUNT(AUTO) 3.61 MIL/uL (4.2-6.2); RED CELL DISTRIBUTION WIDTH 13.9 % (9.0-15.0); WHITE BLOOD COUNT (AUTO) 7.3 K/uL (4.8-10.8)
[2021-01-08 12:44] LABS: ALBUMIN 3.9 g/dL (3.4-4.8); CALCIUM 8.1 mg/dL (8.4-11.0); CREATININE 1.02 mg/dL (0.55-1.30); POTASSIUM 3.8 mmol/L (3.5-5.1); TOTAL BILIRUBIN 3.5 mg/dL (0.0-1.0)
[2021-01-08 13:16] LABS: BILIRUBIN,URINE 2+ (NEGATIVE); BLOOD, URINE NEGATIVE (NEGATIVE); CLARITY/URINE CLEAR (CLEAR); COLOR,URINE AMBER (YELLOW); GLUCOSE,URINE NEGATIVE (NEGATIVE); KETONES,URINE 3+ (NEGATIVE); PH,URINE 5.5 (5.0-8.0); PROTEIN URINE 1+ (NEGATIVE)
[2021-01-08 13:17] LABS: LEUKOCYTE ESTERASE ,URINE NEGATIVE (NEGATIVE); NITRITE, URINE NEGATIVE (NEGATIVE); UROBILINOGEN,URINE >=8 (0.2-1.0)
[2021-01-08 13:38] LABS: BACTERIA,URINE None Seen /HPF (None Seen); WBC,URINE NONE SEEN /HPF (0-3)
[2021-01-08 13:39] LABS: HYALINE CASTS, URINE 0-10 /LPF (None Seen)
[2021-01-08 13:45] LABS: PHOSPHORUS 4.2 mg/dL (2.7-4.5); THYROID STIMULATING HORMONE 3.23 uIu/mL (0.36-3.74)
[2021-01-08] MEDS ORDERED: PIPERACILLIN/TAZO 3.375 GM in NS 50 ML IV ONE (14:15)
[2021-01-08] MEDS ORDERED: VANCOMYCIN HCL 1,000 MG in NS 250 ML IV ONE (14:15)
[2021-01-08] MEDS ORDERED: MAGNESIUM SULFATE 4 GM in D5W 250 ML IV ONE (14:30)
[2021-01-08] MEDS ORDERED: PIPERACILLIN/TAZOBACTAM 3.375 GM/VIAL (ZOSYN) IV ONE (14:32)
[2021-01-08] MEDS ORDERED: VANCOMYCIN HCL 1000 MG/VIAL IV ONE (14:42)
[2021-01-08] MEDS ORDERED: NACL 0.9% 1,000 ML IV SCH (15:15)
[2021-01-08] MEDS ORDERED: PANTOPRAZOLE SODIUM 40 MG/VIAL (PROTONIX) IVP ONE (15:45)
[2021-01-08] MEDS ORDERED: ONDANSETRON HCL 4 MG/2 ML VIAL IVP ONE (15:45)
[2021-01-08] MEDS ORDERED: MAG HYDROX/AL HYDROX/SIMETH 30 ML, DICYCLOMINE HCL 20 MG, LIDOCAINE VISCOUS 2% 15ML (PO... PO ONE ×3 (15:45)
[2021-01-08] MEDS ORDERED: ONDANSETRON HCL 4 MG/2 ML VIAL IM PRN (17:15)
[2021-01-08] MEDS ORDERED: ALBUTEROL SULFATE 0.083% 2.5 MG/3 ML VIAL.NEB INH PRN (17:15)
[2021-01-08] MEDS ORDERED: FAMOTIDINE 20 MG TABLET PO ONE (17:30)
[2021-01-08] MEDS ORDERED: MAGNESIUM SULFATE 50 ML IV ONE (17:30)
[2021-01-08] MEDS ORDERED: AMIODARONE HCL 200 MG TABLET PO ONE (17:30)
[2021-01-08] MEDS ORDERED: FOLIC ACID 1 MG TABLET PO ONE (17:30)
[2021-01-08] MEDS ORDERED: THIAMINE HCL 100 MG TABLET PO ONE (17:30)
[2021-01-08] MEDS ORDERED: ENOXAPARIN SODIUM 30 MG/0.3 ML SYRINGE SUBCUT SCH (18:00)
[2021-01-08] MEDS ORDERED: AZITHROMYCIN 250 MG TABLET PO SCH (18:00)
[2021-01-08] MEDS ORDERED: cefTRIAXone 1 GM in D5W 50 ML IV SCH (18:00)
[2021-01-08 18:47] LABS: THYROID STIMULATING HORMONE 3.48 uIu/mL (0.36-3.74)
[2021-01-08] MEDS ORDERED: CYCL-10 PO (18:54)
[2021-01-08] MEDS ORDERED: DULO20CA19 PO (18:54)
[2021-01-08] MEDS ORDERED: LISI2.5T48 PO (18:55)
[2021-01-08 19:08] LABS: BARBITURATE, URINE NEGATIVE (NEG <=200); BENZODIAZEPINE, URINE NEGATIVE (NEG <=150); CANNABINOID, URINE NEGATIVE (NEG <=50); COCAINE, URINE NEGATIVE (NEG <=150); METHAMPHETAMINES SCREEN,URINE NEGATIVE (NEG <=500); OPIATE, URINE NEGATIVE (NEG <=100); PHENCYCLIDINE SCREEN,URINE NEGATIVE (NEG <=25); UR TRICYCLIC ANTIDEPRESSANTS NEGATIVE (NEG <=300); URINE AMPHETAMINE NEGATIVE (NEG <=500); URINE METHADONE NEGATIVE (NEG <=200); URINE OXYCODONE SCREEN NEGATIVE (NEG <=100); URINE PROPOXYPHENE SCREEN NEGATIVE (NEG <=300)
[2021-01-08 19:45] VITALS: BP_SYST 129
[2021-01-08] MEDS ORDERED: CARVEDILOL 12.5 MG TABLET (COREG) PO SCH (21:00)
[2021-01-09] MEDS ORDERED: LEVOTHYROXINE SODIUM 0.1 MG TABLET PO SCH (07:00)
[2021-01-09] MEDS ORDERED: FAMOTIDINE 20 MG TABLET PO SCH (09:00)
[2021-01-09] MEDS ORDERED: AMIODARONE HCL 200 MG TABLET PO SCH (09:00)
[2021-01-09] MEDS ORDERED: FOLIC ACID 1 MG TABLET PO SCH (09:00)
[2021-01-09] MEDS ORDERED: THIAMINE HCL 100 MG TABLET PO SCH (09:00)
== END 2021-01-08 19:30 | disposition left against medical advice (07) | DRG 641 ==
LOC: SED 11:51 → STU 15:02
PROVIDERS: ADMIT Internal Medicine; ATTEND Internal Medicine
DX: E86.0 Dehydration (principal); I42.8 Other cardiomyopathies; E83.42 Hypomagnesemia; E87.2 Acidosis; R19.7 Diarrhea, unspecified; E03.9 Hypothyroidism, unspecified; Z20.822 Contact with and (suspected) exposure to COVID-19; G62.1 Alcoholic polyneuropathy; I10 Essential (primary) hypertension; J40 Bronchitis, not specified as acute or chronic; Z60.2 Problems related to living alone; Z79.899 Other long term (current) drug therapy; Z88.6 Allergy status to analgesic agent; Z91.14 Patient's other noncompliance with medication regimen; Z88.8 Allergy status to other drugs, medicaments and biological substances; Z95.810 Presence of automatic (implantable) cardiac defibrillator
CPT/HCPCS: 36415; 36600; 71045; 76700-TC; 80053; 80307; 81000; 82140; 82550; 82803-TC; 83605; 83735; 83880; 84100; 84443; 84484; 85025; 87040-TC; 93005; 96361; 96365; 96366; 96368; 96375; 99291; C9113; G0378; G0481; J0696; J1650; J2001; J2405; J2543; J3370; J3475; J7060; Q0144

== ENCOUNTER 2021-04-15 11:05 | Emergency (ER) | payer BC, SELFPAY ==
[~2021-04-15] VITALS: Ht 167.6 cm; Wt 56.2 kg
[~2021-04-15 11:05] MED LIST changes: -AMIO100T4 PO; +CYCL10TA24 PO; +DULO20CA19 PO; +LISI2.5T48 PO
[2021-04-15 11:06] VITALS: BP_SYST 118
--- NOTE | 2021-04-15 12:36 | NUR ---
Pt. in parking lot yelling marilu, here discussing hx. of pt with Dr. Cullen, pt. has a large laceration to head not actively bleeding at this time, states pt. alcoholic and she does not know how laceration occured
--- NOTE | 2021-04-15 13:10 | NUR ---
Patient transported to radiology via wheelchair, accompanied by staff and security.
--- NOTE | 2021-04-15 14:00 | NUR ---
ER at bedside examining patient.
--- NOTE | 2021-04-15 14:15 | NUR ---
PT RECEIVED ANDREW BY .PT TOLERATED WELL.
--- NOTE | 2021-04-15 15:00 | NUR ---
WOUND CARE GIVEN.
[2021-04-15] MEDS ORDERED: BACITRACIN 1 GM OINT TP ONE ×2 (15:42→15:50)
[2021-04-15 15:45] VITALS: BP_SYST 121
--- NOTE | 2021-04-15 15:45 | NUR ---
Patient given written and verbal discharge instructions and verbalizes understanding. ER MD discussed with patient the results and treatment provided. Patient in stable condition. ID arm band removed. NO Rx given. Patient educated on pain management and to follow up with PMD. Pain Scale 0. Opportunity for questions provided and answered. Medication side effect fact sheet provided.
== END 2021-04-15 15:45 | disposition home or self-care (01) ==
LOC: SED 11:05
DX: S01.01XA Laceration without foreign body of scalp, initial encounter (principal); S09.90XA Unspecified injury of head, initial encounter; I10 Essential (primary) hypertension; E03.9 Hypothyroidism, unspecified; Z88.5 Allergy status to narcotic agent; Z79.899 Other long term (current) drug therapy; Z79.84 Long term (current) use of oral hypoglycemic drugs; W18.39XA Other fall on same level, initial encounter; Y93.89 Activity, other specified; Y92.89 Other specified places as the place of occurrence of the external cause; Y99.8 Other external cause status
CPT/HCPCS: 70450-TC; 76376; 99284

== ENCOUNTER 2022-05-04 13:42 | Inpatient (IN) | payer BC, OTHER ==
[~2022-05-04] VITALS: Ht 167.6 cm; Wt 59.4 kg
[2022-05-04 13:42] VITALS: BP_SYST 122
[2022-05-04] MEDS ORDERED: ONDANSETRON HCL 4 MG/2 ML VIAL IVP ONE (15:15)
[2022-05-04] MEDS ORDERED: NACL 0.9% 1,000 ML IV ONE ×2 (15:15→17:15)
--- NOTE | 2022-05-04 15:20 | NUR ---
PT BROUGHT TO ROOM VIA EMS, PT STATES EPISODES OF VOMITING LAST NIGHT THAT LASTED 3-4 HOURS THAT BURNED HIS THROAT, STATES NO VOMITING TODAY BUT HAS A SORE THROAT.
--- NOTE | 2022-05-04 15:33 | NUR ---
IV STARTED IN RAC WITH 20 G ANGIO, BLOOD DRAWN AND TAKEN TO LAB
--- NOTE | 2022-05-04 15:33 | NUR ---
ER at bedside examining patient.
[2022-05-04 15:40] LABS: HEMOGLOBIN 13.1 g/dL (14.0-18.0); LYMPHOCYTES # (AUTO) 0.7 K/uL (1.0-5.5); MONOCYTES # (AUTO) 0.6 K/uL (0.0-1.0)
[2022-05-04 15:48] LABS: BASOPHILS % (AUTO) 0.3 % (0.0-2.0); HEMATOCRIT 37.3 % (36-54); LYMPHOCYTES % (AUTO) 8.6 % (20.5-51.5); MEAN CORPUSCULAR HEMOGLOBIN 37 pg (27-31); MEAN CORPUSCULAR HGB CONC 35 % (32-36); MEAN CORPUSCULAR VOLUME 105 fL (79.0-98.0); MONOCYTES % (AUTO) 7.9 % (1.7-9.3); NEUTROPHILS # (AUTO) 6.8 K/uL (1.8-7.7); NEUTROPHILS % (AUTO) 83.2 % (40.0-70.0); PLATELET COUNT (AUTO) 135 K/uL (130-430); RED BLOOD CELL COUNT(AUTO) 3.54 MIL/uL (4.2-6.2); RED CELL DISTRIBUTION WIDTH 13.8 % (9.0-15.0); WHITE BLOOD COUNT (AUTO) 8.1 K/uL (4.8-10.8)
[2022-05-04 15:59] LABS: ANION GAP 26 (5-15); CALCIUM 7.8 mg/dL (8.4-11.0); CREATININE 1.69 mg/dL (0.55-1.30); GLUCOSE 332 mg/dL (70-99); UREA NITROGEN, BLOOD 29 mg/dL (8-21)
[2022-05-04 16:13] LABS: GFR AFRICAN AMERICAN 52 mL/min (>90)
[2022-05-04 16:18] LABS: ASPARTATE AMINOTRANSFERASE 55 U/L (10-37)
[2022-05-04 16:19] LABS: ACETONE, SERUM LARGE (NEGATIVE); ALANINE AMINOTRANSFERASE 26 U/L (12-78); ALBUMIN 4.2 g/dL (3.4-4.8); LIPASE 226 U/L (73-393)
[2022-05-04 16:23] LABS: CHLORIDE 85 mmol/L (98-107)
[2022-05-04] MEDS ORDERED: INSULIN REGULAR, HUMAN 10 UNITS/0.1 ML, 3 ML VIAL IVP ONE (16:45)
[2022-05-04] MEDS ORDERED: LIDOCAINE VISCOUS 2%, 15 ML UDC MM ONE (16:45)
--- NOTE | 2022-05-04 17:20 | NUR ---
Admit bed requested Patient will be admitted to care of . Admitted to TELE unit. Diagnosis UNCONTROLLED DIABETES Inpatient (Yes or No) Y Observation (Yes or No) N Orientation concerns or request close to nursing station (Yes or No) N Covid Status PEND On vent or bipap N Isolation requirements N Needs a sitter N From Home (Yes or if No enter name of facility) [facility] Requires Dialysis (Yes or No) N Med Rec Completed (Yes of No) Y
[2022-05-04] MEDS ORDERED: IPRATROPIUM BROM 0.5 MG/2.5 ML VIAL.NEB (ATROVENT) INH PRN (21:30)
[2022-05-04] MEDS ORDERED: ONDANSETRON HCL 4 MG/2 ML VIAL IVP PRN (21:30)
[2022-05-04] MEDS ORDERED: CYCLOBENZAPRINE HCL 10 MG TABLET (FLEXERIL) PO PRN (21:30)
[2022-05-04] MEDS ORDERED: ACETAMINOPHEN 325 MG TABLET PO PRN (21:30)
[2022-05-04] MEDS ORDERED: ALBUTEROL SULFATE 0.083% 2.5 MG/3 ML VIAL.NEB INH PRN (21:30)
[2022-05-04] MEDS ORDERED: LORazepam 2 MG/ML VIAL IVP PRN (21:30)
[2022-05-04 22:46] VITALS: BP_SYST 109
[2022-05-04 23:30] VITALS: BP_SYST 112
--- NOTE | 2022-05-04 23:47 | NUR ---
Paged Dr. Hayes Eliu
[2022-05-05] MEDS ORDERED: HYDROcodone/ACETAMIN 5-325 MG TAB (NORCO/ VICODIN) PO PRN
[2022-05-05] MEDS ORDERED: NALOXONE HCL 0.4 MG/ML AMP (NARCAN) IVP PRN
[2022-05-05] MEDS ORDERED: MAG-AL HYDROX/SIMETH 30 ML UDC PO PRN
[2022-05-05] MEDS ORDERED: GABAPENTIN 300 MG CAPSULE PO ONE
[2022-05-05] MEDS ORDERED: BENZOCAINE/MENTHOL 1 EACH LOZENGE MM PRN
[2022-05-05] MEDS: traZODone HCL 50 MG TABLET (DESYREL) PO PRN ×2 (00:32→23:55)
--- NOTE | 2022-05-05 01:17 | NUR ---
REASON FOR CONSULTATION: nausea/vomiting WAS CONSULT CALLED? Y PERSON WHO WAS NOTIFIED: Sarah Beth CONSULTING PHYSICIAN: Dr. Camarena (Dr. Dow is promotions executive producer) REQUESTING PHYSICIAN: Eliu Enrique
--- NOTE | 2022-05-05 02:30 | NUR ---
PATIENT WAS ADMITTED TO [facility] FLOOR, PATIENT WAS STABLE AT THE TIME OF TRANSFER TO THE UNIT
--- NOTE | 2022-05-05 03:16 | NUR ---
Consultation Paged Reason for Consultation: PAKO Was consult called: Y Person who was notified: Sarah Beth Consulting Physician: Dr. Clayton Ordering Physician: Eliu Enrique
[2022-05-05] MEDS: INSULIN REGULAR, HUMAN 100 UNITS/ML, 3 ML VIAL (humuLIN R) SUBCUT PRN ×3 (06:13→17:41)
[2022-05-05 07:26] LABS: BASOPHILS % (AUTO) 0.4 % (0.0-2.0); EOSINOPHILS % (AUTO) 0.6 % (0.0-4.0); HEMATOCRIT 33.4 % (36-54); HEMOGLOBIN 11.9 g/dL (14.0-18.0); LYMPHOCYTES # (AUTO) 0.9 K/uL (1.0-5.5); LYMPHOCYTES % (AUTO) 16.3 % (20.5-51.5); MEAN CORPUSCULAR HEMOGLOBIN 37 pg (27-31); MEAN CORPUSCULAR HGB CONC 36 % (32-36); MEAN CORPUSCULAR VOLUME 105 fL (79.0-98.0); MONOCYTES # (AUTO) 0.2 K/uL (0.0-1.0); MONOCYTES % (AUTO) 4.6 % (1.7-9.3); NEUTROPHILS # (AUTO) 4.2 K/uL (1.8-7.7); NEUTROPHILS % (AUTO) 78.1 % (40.0-70.0); PLATELET COUNT (AUTO) 109 K/uL (130-430); RED BLOOD CELL COUNT(AUTO) 3.19 MIL/uL (4.2-6.2); RED CELL DISTRIBUTION WIDTH 13.6 % (9.0-15.0); WHITE BLOOD COUNT (AUTO) 5.3 K/uL (4.8-10.8)
[2022-05-05 07:41] LABS: CALCIUM 7.2 mg/dL (8.4-11.0); CREATININE 1.74 mg/dL (0.55-1.30); PHOSPHORUS 2.4 mg/dL (2.7-4.5)
[2022-05-05 08:00] VITALS: BP_SYST 108
--- NOTE | 2022-05-05 08:00 | NUR ---
INITIAL NOTES RECEIVED PATIENT AWAKE IN BED, VERBALIZES NEEDS, A/OX4, NO SIGN OF DISTRESS, VITAL SIGNS W/IN NORM. RESPIRATION EVEN AND UNLABORED. SALINE LOCK TO RIGHT HAND PATENT. CONTINUE ALL SAFETY PRECAUTION AND CONTINUE TO MONITOR
[2022-05-05] MEDS: CARVEDILOL 12.5 MG TABLET (COREG) PO SCH ×2 (08:37→20:47)
[2022-05-05] MEDS: lisinopriL 5 MG TABLET PO SCH (08:39)
[2022-05-05] MEDS: LEVOTHYROXINE SODIUM 0.1 MG TABLET PO SCH (08:39)
[2022-05-05] MEDS: DULoxetine HCL 20 MG CAPSULE.DR PO SCH (08:39)
[2022-05-05] MEDS ORDERED: GABAPENTIN 400 MG CAPSULE PO SCH (09:00)
[2022-05-05] MEDS ORDERED: MAGNESIUM SULFATE 50 ML IV ONE (09:30)
[2022-05-05 11:28] VITALS: BP_SYST 95
[2022-05-05] MEDS: NACL 0.9% 1,000 ML IV SCH (12:06)
--- NOTE | 2022-05-05 13:46 | NUR ---
CONSULTATION PAGED/CALLED Reason for Consultation: [] UNCONTROLLED Person Who was Notified: [] DR WETZEL SAYJOHANNE Consulting Physician: [] DR VELOZ Certified Medical Aide Specialty: [] ENDOCRINE Ordering Physician: [] DR CM
--- NOTE | 2022-05-05 13:47 | NUR ---
GI CONSULT, DR VILLALPANDO IS AWARE OF THE CONSULT FOR N/V.
[2022-05-05 15:27] VITALS: BP_SYST 88
--- NOTE | 2022-05-05 16:52 | NUR ---
Notes Consent signed by patient in chart, instructed starting clear liquid diet then nothing by mouth after midnight, patient verbalizes understanding.
[2022-05-05] MEDS: GABAPENTIN 300 MG CAPSULE PO SCH ×2 (17:50→20:58)
[2022-05-05 18:40] LABS: BILIRUBIN,URINE 1+ (NEGATIVE); BLOOD, URINE NEGATIVE (NEGATIVE); CLARITY/URINE CLEAR (CLEAR); COLOR,URINE YELLOW (YELLOW); GLUCOSE,URINE NEGATIVE (NEGATIVE); KETONES,URINE 1+ (NEGATIVE); LEUKOCYTE ESTERASE ,URINE NEGATIVE (NEGATIVE); NITRITE, URINE NEGATIVE (NEGATIVE); PROTEIN URINE NEGATIVE (NEGATIVE); UROBILINOGEN,URINE 0.2 (0.2-1.0)
[2022-05-05 18:49] LABS: BACTERIA,URINE None Seen /HPF (None Seen); MUCUS,URINE None Seen /LPF (None Seen); RBC,URINE 0-3 /HPF (0-3); WBC,URINE NONE SEEN /HPF (0-3)
[2022-05-05 19:00] VITALS: BP_SYST 110
--- NOTE | 2022-05-05 19:00 | NUR ---
INITIAL NOTES Patient awake in bed, no distress, consent signed in chart for EGD, maintain safety precaution during my shift, will endorse to next oncoming nurse
--- NOTE | 2022-05-05 19:15 | NUR ---
change of shift.pt.presents quiescent affect;calm,resting.pt.presents iv access location:rt.hand intact;patent.no c/o pain, nausea.pt.capable to reposition self.pt.had stated he utilizes a walker[facility]:provided.pt.utilizing the urinal w/in access of thpt.general status stable.respiratory status stable@room air;un-labored.naun light/telephone w/in access of the pt.
[2022-05-05 20:00] VITALS: BP_SYST 110
--- NOTE | 2022-05-05 20:00 | NUR ---
pt.assessed.v/s assessed values note initial b/p status presented low status.i re-located the b/p cuff:lower leg v/s presented a value wnl.no c/o pain,nausea.pt.apprised that snacks/beverages are available w/in the shift.no requests posited@this hour. iv access intact;patent.pt.capable to repositioned self.call light/telephone w/in access of the pt.
--- NOTE | 2022-05-05 21:00 | NUR ---
2100p medications administered.pt.capable to ingest the po medications w/out difficulty.no c/o pain,nausea. no requests posited@this hour.call light/telephone w/in access of the pt.
--- NOTE | 2022-05-05 22:00 | NUR ---
pt.assessed.pt.quiescent.no c/o pain,nausea.no requests posited @this hour.iv access intact;patent.walker/urinal w/in access of the pt.call light/telephone w/in access of the pt.
[2022-05-06] VITALS: BP_SYST 108
--- NOTE | 2022-05-06 | NUR ---
pt.assessed.v/s assessed note b/p status.blood glucose assessed value:147mg/dl.re-iterated to pt.diet status converted to npo status;2/t egd in am.no c/o pain,nausea.iv access intact;patent.pt.capable to reposition self.naun light/telephone w/in access of the pt.
--- NOTE | 2022-05-06 02:00 | NUR ---
pt.assessed.pt.quiescent;somnolent.per flacc pain mgx pt.absent facial grimaces/body posturing.iv access intact;patent pt.capable to reposition self.urinal w/in access of the pt.call light/telephone w/in access of the pt.
--- NOTE | 2022-05-06 04:00 | NUR ---
pt.assessed.pt.quiescent;somnolent.per flacc pain mgx pt.absent facial grimaces/body posturing.iv access intact;patent. pt.capable to reposition self.urinal/walker w/in access of the pt.call light/telephone w/in access of the pt.
[2022-05-06] MEDS: NACL 0.9% 1,000 ML IV SCH ×2 (05:30→18:58)
[2022-05-06] MEDS: INSULIN REGULAR, HUMAN 100 UNITS/ML, 3 ML VIAL (humuLIN R) SUBCUT PRN ×3 (05:53→16:49)
--- NOTE | 2022-05-06 06:00 | NUR ---
pt.assessed.blood glucose assessed value;180mg/dl.hold insulin coverage;regular;2/t egd in am.no p c/o pain,nausea, iv access intact;patent.call light/telephone w/in access of the pt.
[2022-05-06 06:52] LABS: BASOPHILS % (AUTO) 0.3 % (0.0-2.0); EOSINOPHILS # (AUTO) 0.1 K/uL (0.0-0.4); HEMATOCRIT 32.9 % (36-54); HEMOGLOBIN 11.6 g/dL (14.0-18.0); LYMPHOCYTES # (AUTO) 0.9 K/uL (1.0-5.5); LYMPHOCYTES % (AUTO) 14.6 % (20.5-51.5); MEAN CORPUSCULAR HEMOGLOBIN 37 pg (27-31); MEAN CORPUSCULAR HGB CONC 35 % (32-36); MEAN CORPUSCULAR VOLUME 106 fL (79.0-98.0); MONOCYTES # (AUTO) 0.3 K/uL (0.0-1.0); MONOCYTES % (AUTO) 5.9 % (1.7-9.3); NEUTROPHILS # (AUTO) 4.6 K/uL (1.8-7.7); NEUTROPHILS % (AUTO) 78.2 % (40.0-70.0); PLATELET COUNT (AUTO) 99 K/uL (130-430); RED CELL DISTRIBUTION WIDTH 13.6 % (9.0-15.0); WHITE BLOOD COUNT (AUTO) 5.9 K/uL (4.8-10.8)
[2022-05-06 07:18] LABS: PROTHROMBIN TIME 10.1 SECS (9.5-12.5)
[2022-05-06 07:53] VITALS: BP_SYST 104
[2022-05-06] MEDS ORDERED: BENZOCAINE 20% 0.5mL UD SPRAY MM ONE (08:09)
[2022-05-06] MEDS ORDERED: MIDAZOLAM HCL 5 MG/5 ML VIAL ONE (08:09)
[2022-05-06] MEDS ORDERED: fentaNYL CITRATE/PF 100 MCG/2 ML AMP ONE (08:09)
[2022-05-06 08:30] LABS: PHOSPHORUS 1.8 mg/dL (2.7-4.5); THYROID STIMULATING HORMONE 1.48 uIu/mL (0.36-3.74); TOTAL BILIRUBIN 1.1 mg/dL (0.0-1.0)
[2022-05-06] MEDS ORDERED: MEPERIDINE 100 MG INJ. 100 MG/ML VIAL ONE (08:32)
[2022-05-06] MEDS: lisinopriL 5 MG TABLET PO SCH (09:00)
[2022-05-06] MEDS: CARVEDILOL 12.5 MG TABLET (COREG) PO SCH (09:00)
[2022-05-06] MEDS ORDERED: PANTOPRAZOLE SODIUM 40 MG TAB PO ONE (09:45)
--- NOTE | 2022-05-06 09:45 | NUR ---
PTCAME BACK FROM EGD.A/OX4.DENIES C/O OF PAIN. [id number] 88 %ON RA. DENIES ANY SOB. O2 2 L NC APPLIEDO2 SATURATION INCREASED TO 98 %.NOT IN ACUTE ANY RES DISTRESS.WILL CONITNUE TO MONITOR
[2022-05-06] MEDS ORDERED: POTASSIUM CHLORIDE 40 MEQ in NS 250 ML IV ONE (10:15)
[2022-05-06] MEDS: GABAPENTIN 300 MG CAPSULE PO SCH (10:28)
[2022-05-06] MEDS: DULoxetine HCL 20 MG CAPSULE.DR PO SCH (10:28)
[2022-05-06] MEDS: LEVOTHYROXINE SODIUM 0.1 MG TABLET PO SCH (10:28)
--- NOTE | 2022-05-06 11:29 | NUR ---
Dietitian Recommendations *Continue clear liquids per MD *If/when medically appropriate, advance to GI Soft bland diet *Consider Glucerna BID supplements to meet nutritional needs HARSHA, RD Please refer to Nutritional Assessment for further details Addendum: 05/06/22 at [address] Amended: Links added.
[2022-05-06 12:00] VITALS: BP_SYST 100
[2022-05-06] MEDS: SUCRALFATE 1 GM/10 ML UDC GT SCH ×2 (12:44→17:58)
[2022-05-06 14:06] VITALS: BP_SYST 105
[2022-05-06] MEDS ORDERED: K PHOS 15 MM in NS 250 ML IV ONE (14:15)
--- NOTE | 2022-05-06 14:26 | NUR ---
cm: Updated clinicals and faxed info to [employer] fax # [phone], tel [phone]. He gave inpatient auth ref # [id number].
--- NOTE | 2022-05-06 18:59 | NUR ---
PT AWAKE AND ORIENTED. AMBULATED HALLWAY WITH IV POLE. ADVANCED DIET TOLERATE. STILL INFUSING K PHOS AT 63 ML/HR WITH NS 50 ML/HR. IV WAS OUT- RESTATED LEFT FOREARM # 22F IV. LAST BS WAS 257 AND COVERED WITH RI PER S/S.
--- NOTE | 2022-05-06 20:42 | NUR ---
Provider paged due to patient wanting to leave against medical advice.
[2022-05-06] MEDS ORDERED: PANTOPRAZOLE SODIUM 40 MG TAB PO SCH (21:00)
[2022-05-07 15:44] LABS: HEMOGLOBIN A1C 7.6 % (4.8-5.6)
== END 2022-05-06 20:30 | disposition left against medical advice (07) | DRG 380 ==
LOC: SED 13:42 → STU 17:13
PROVIDERS: ADMIT Preventive Medicine Preventive Medicine/Occupational Environmental Medicine; ATTEND Preventive Medicine Preventive Medicine/Occupational Environmental Medicine
PROC: 0DB78ZX Excision of Stomach, Pylorus, Via Natural or Artificial Opening Endoscopic, Diagnostic (ICD-10-PCS; 2022-05-06)
PROC: 0DB58ZX Excision of Esophagus, Via Natural or Artificial Opening Endoscopic, Diagnostic (ICD-10-PCS; principal; 2022-05-06 08:00)
DX: K22.10 Ulcer of esophagus without bleeding (principal); E11.10 Type 2 diabetes mellitus with ketoacidosis without coma; N17.0 Acute kidney failure with tubular necrosis; R65.11 Systemic inflammatory response syndrome (SIRS) of non-infectious origin with acute organ dysfunction; E87.1 Hypo-osmolality and hyponatremia; I42.9 Cardiomyopathy, unspecified; K86.1 Other chronic pancreatitis; I25.10 Atherosclerotic heart disease of native coronary artery without angina pectoris; Z96.611 Presence of right artificial shoulder joint; R13.10 Dysphagia, unspecified; D64.9 Anemia, unspecified; K80.20 Calculus of gallbladder without cholecystitis without obstruction; E83.51 Hypocalcemia; E83.39 Other disorders of phosphorus metabolism; E87.6 Hypokalemia; E03.9 Hypothyroidism, unspecified; D69.6 Thrombocytopenia, unspecified; E80.6 Other disorders of bilirubin metabolism; R74.01 Elevation of levels of liver transaminase levels; E83.42 Hypomagnesemia; K21.9 Gastro-esophageal reflux disease without esophagitis; K29.70 Gastritis, unspecified, without bleeding; K44.9 Diaphragmatic hernia without obstruction or gangrene; K57.90 Diverticulosis of intestine, part unspecified, without perforation or abscess without bleeding; I12.9 Hypertensive chronic kidney disease with stage 1 through stage 4 chronic kidney disease, or unspecified chronic kidney disease; E11.22 Type 2 diabetes mellitus with diabetic chronic kidney disease; N18.9 Chronic kidney disease, unspecified; Z88.5 Allergy status to narcotic agent; Z88.8 Allergy status to other drugs, medicaments and biological substances; Z79.899 Other long term (current) drug therapy; Z87.891 Personal history of nicotine dependence
CPT/HCPCS: 36415; 36600; 43239; 71045; 76376; 80048; 80053; 81000; 82009; 82306; 82803-TC; 82962; 83036; 83605; 83690; 83735; 84100; 84436; 84443; 85025; 85610-TC; 85730-TC; 87081; 88305; 88312; 88313; 88341; 88342; 93005; 96361; 96374; 96375; 99285; G0378; G0482; J1815; J2001; J2175; J2250; J2405; J3010; J3475; J3480; J7030; J7050

== ENCOUNTER 2023-01-15 11:43 | Inpatient (IN) | payer OTHER ==
[~2023-01-15] VITALS: Ht 165.1 cm; Wt 55.8 kg
[2023-01-15 11:50] VITALS: BP_SYST 122; PULSE 112; RESP 20; TEMP 97.7; O2SAT 98
[2023-01-15] MEDS ORDERED: DIPHENHYDRAMINE INJ 50 MG/ML VIAL IVP ONE (12:00)
[2023-01-15] MEDS ORDERED: NACL 0.9% 1,000 ML IV ONE ×4 (12:00→17:00)
[2023-01-15] MEDS ORDERED: METHYLPREDNISOLONE SOD SUCC 40 MG/ML VIAL IVP ONE (12:00)
[2023-01-15] MEDS ORDERED: methylPREDNISolone SOD SUCC/PF 62.5 MG/ML VIAL ONE (12:10)
[2023-01-15 12:14] LABS: BASOPHILS % (AUTO) 0.3 % (0.0-2.0); HEMATOCRIT 43.3 % (36-54); HEMOGLOBIN 14.1 g/dL (14.0-18.0); LYMPHOCYTES # (AUTO) 0.8 K/uL (1.0-5.5); LYMPHOCYTES % (AUTO) 5.7 % (20.5-51.5); MEAN CORPUSCULAR HEMOGLOBIN 37 pg (27-31); MEAN CORPUSCULAR HGB CONC 33 % (32-36); MEAN CORPUSCULAR VOLUME 112 fL (79.0-98.0); MONOCYTES # (AUTO) 0.7 K/uL (0.0-1.0); MONOCYTES % (AUTO) 4.9 % (1.7-9.3); NEUTROPHILS # (AUTO) 12.1 K/uL (1.8-7.7); NEUTROPHILS % (AUTO) 89.1 % (40.0-70.0); PLATELET COUNT (AUTO) 145 K/uL (130-430); RED BLOOD CELL COUNT(AUTO) 3.86 MIL/uL (4.2-6.2); RED CELL DISTRIBUTION WIDTH 14.5 % (9.0-15.0); WHITE BLOOD COUNT (AUTO) 13.6 K/uL (4.8-10.8)
[2023-01-15 12:30] LABS: PROTHROMBIN TIME 10.8 SECS (9.5-12.5)
[2023-01-15 12:32] LABS: ALBUMIN 4.1 g/dL (3.4-4.8); CALCIUM 8.2 mg/dL (8.4-11.0); CREATININE 1.73 mg/dL (0.55-1.30); TOTAL BILIRUBIN 1.2 mg/dL (0.0-1.0)
[2023-01-15 13:23] LABS: BILIRUBIN,URINE NEGATIVE (NEGATIVE); BLOOD, URINE 2+ (NEGATIVE); CLARITY/URINE CLEAR (CLEAR); COLOR,URINE YELLOW (YELLOW); GLUCOSE,URINE NEGATIVE (NEGATIVE); KETONES,URINE 1+ (NEGATIVE); LEUKOCYTE ESTERASE ,URINE NEGATIVE (NEGATIVE); NITRITE, URINE NEGATIVE (NEGATIVE); PH,URINE 5.5 (5.0-8.0); PROTEIN URINE 1+ (NEGATIVE)
[2023-01-15 13:45] LABS: BACTERIA,URINE MODERATE /HPF (None Seen)
[2023-01-15] MEDS ORDERED: PIPERACILLIN/TAZO 3.375 GM in NS 50 ML IV ONE (13:45)
[2023-01-15 13:46] LABS: MUCUS,URINE 1+ /LPF (None Seen)
[2023-01-15 13:53] LABS: ALCOHOL, BLOOD 30 mg/dL (<10); LIPASE 323 U/L (73-393)
[2023-01-15] MEDS ORDERED: PIPERACILLIN/TAZOBACTAM 3.375 GM/VIAL (ZOSYN) IV ONE (14:25)
[2023-01-15] MEDS ORDERED: ONDANSETRON HCL 4 MG/2 ML VIAL ONE (14:57)
[2023-01-15] MEDS ORDERED: ONDANSETRON HCL 4 MG/2 ML VIAL IVP ONE (15:30)
[2023-01-15] MEDS ORDERED: KETOROLAC TROMETHAMINE 30 MG VIAL IVP ONE (16:15)
[2023-01-15] MEDS ORDERED: dilTIAZem HCL IVP 5 MG/ML VIAL IVP ONE (16:30)
[2023-01-15] MEDS ORDERED: CLINDAMYCIN 900 MG in D5W 100 ML IV ONE (17:00)
[2023-01-15] MEDS ORDERED: *HEPARIN PER PHARMACY XX ONE (17:00)
[2023-01-15] MEDS ORDERED: POTASSIUM CHLORIDE 20 MEQ TAB.PRT.SR PO ONE (17:00)
[2023-01-15 17:14] LABS: ACETAMINOPHEN < 1 ug/mL (1-30)
[2023-01-15] MEDS ORDERED: HEPARIN SODIUM,PORCINE 3000 UNITS/0.6 ML BOLUS IVP PRN (17:15)
[2023-01-15] MEDS ORDERED: HEPARIN SODIUM,PORCINE 2000 UNITS/0.4 ML BOLUS IVP PRN (17:15)
[2023-01-15] MEDS ORDERED: HEPARIN SODIUM,PORCINE 5,000 UNITS/ML VIAL IVP ONE (17:15)
[2023-01-15] MEDS ORDERED: HEPARIN 25,000 UNITS in 250 ML PREMIX IV PRN (17:15)
[2023-01-15] MEDS ORDERED: metroNIDAZOLE 500 mg/NS 100 ML IV ONE (18:00)
[2023-01-15] MEDS: NACL 0.9% 1,000 ML IV SCH ×2 (18:25→23:53)
[2023-01-15 18:41] LABS: BARBITURATE, URINE NEGATIVE (NEG <=200); BENZODIAZEPINE, URINE NEGATIVE (NEG <=150); CANNABINOID, URINE NEGATIVE (NEG <=50); COCAINE, URINE NEGATIVE (NEG <=150); METHAMPHETAMINES SCREEN,URINE NEGATIVE (NEG <=500); OPIATE, URINE NEGATIVE (NEG <=100); PHENCYCLIDINE SCREEN,URINE NEGATIVE (NEG <=25); URINE AMPHETAMINE NEGATIVE (NEG <=500); URINE METHADONE NEGATIVE (NEG <=200); URINE OXYCODONE SCREEN NEGATIVE (NEG <=100); URINE PROPOXYPHENE SCREEN NEGATIVE (NEG <=300)
[2023-01-15 18:42] LABS: UR TRICYCLIC ANTIDEPRESSANTS NEGATIVE (NEG <=300)
[2023-01-15 22:30] VITALS: BP_SYST 124; PULSE 110; RESP 18; TEMP 98.2; O2SAT 97
[2023-01-15] MEDS: PIPERACILLIN/TAZO 4.5GM/DEX-IS 100 ML IV SCH (23:52)
[2023-01-16] VITALS (13 sets, daily range): BP systolic 99–127; PULSE 95–126; RESP 14–20; TEMP 97.5–98; O2SAT 91–100
[2023-01-16] MEDS: guaiFENesin/DEXTROMETHORPHAN 10 ML UDC PO PRN (00:41)
[2023-01-16] MEDS: GABAPENTIN 300 MG CAPSULE PO SCH ×3 (00:41→20:12)
[2023-01-16] MEDS ORDERED: FUROSEMIDE 40 MG/4 ML VIAL IVP ONE (01:00)
[2023-01-16] MEDS ORDERED: IPRATROPIUM/ALBUTEROL SULFATE 3 ML AMPUL.NEB (DUONEB) INH PRN (01:00)
[2023-01-16] MEDS: DOXYCYCLINE HYCLATE 100 MG in D5W 100 ML IV SCH ×3 (01:11→20:32)
[2023-01-16 05:39] LABS: BASOPHILS % (AUTO) 0.1 % (0.0-2.0); HEMATOCRIT 36.5 % (36-54); HEMOGLOBIN 12.2 g/dL (14.0-18.0); LYMPHOCYTES # (AUTO) 0.2 K/uL (1.0-5.5); LYMPHOCYTES % (AUTO) 3.6 % (20.5-51.5); MEAN CORPUSCULAR HEMOGLOBIN 37 pg (27-31); MEAN CORPUSCULAR HGB CONC 33 % (32-36); MEAN CORPUSCULAR VOLUME 110 fL (79.0-98.0); MONOCYTES # (AUTO) 0.3 K/uL (0.0-1.0); MONOCYTES % (AUTO) 5.1 % (1.7-9.3); NEUTROPHILS # (AUTO) 5.9 K/uL (1.8-7.7); NEUTROPHILS % (AUTO) 91.2 % (40.0-70.0); PLATELET COUNT (AUTO) 84 K/uL (130-430); RED BLOOD CELL COUNT(AUTO) 3.33 MIL/uL (4.2-6.2); RED CELL DISTRIBUTION WIDTH 13.7 % (9.0-15.0); WHITE BLOOD COUNT (AUTO) 6.4 K/uL (4.8-10.8)
[2023-01-16] MEDS: PIPERACILLIN/TAZO 4.5GM/DEX-IS 100 ML IV SCH ×3 (06:21→23:31)
[2023-01-16 06:28] LABS: ALBUMIN 3.3 g/dL (3.4-4.8); CREATININE 1.68 mg/dL (0.55-1.30); PHOSPHORUS 4.2 mg/dL (2.7-4.5); TOTAL BILIRUBIN 1.2 mg/dL (0.0-1.0)
[2023-01-16 06:36] LABS: CALCIUM 6.7 mg/dL (8.4-11.0)
[2023-01-16] MEDS ORDERED: NS 500 ML IV ONE (07:15)
[2023-01-16] MEDS ORDERED: INSULIN NPH 100 UNITS/ML 10 ML VIAL SUBCUT ONE (07:30)
[2023-01-16] MEDS ORDERED: CALCIUM CHLORIDE 1 GM in NS 100 ML IV ONE (07:30)
[2023-01-16] MEDS: IPRATROPIUM/ALBUTEROL SULFATE 3 ML AMPUL.NEB (DUONEB) INH SCH ×5 (07:31→22:41)
[2023-01-16] MEDS ORDERED: GLUCOSE (DEXTROSE) ORAL GEL -Adults PO PRN (07:45)
[2023-01-16] MEDS ORDERED: DEXTROSE 50%-WATER 50 ML DISP.SYRIN IVP PRN (07:45)
[2023-01-16] MEDS ORDERED: D5W 1,000 ML IV PRN (07:45)
[2023-01-16] MEDS: INSULIN REGULAR, HUMAN 100 UNITS/ML, 3 ML VIAL (humuLIN R) SUBCUT PRN ×3 (07:46→17:07)
[2023-01-16] MEDS: NACL 0.9% 1,000 ML IV SCH ×2 (07:53→17:50)
[2023-01-16 08:08] LABS: FREE T4 (FREE THYROXINE) 0.8 ng/dL (0.6-1.6); THYROID STIMULATING HORMONE 0.8 uIu/mL (0.34-4.82)
[2023-01-16] MEDS ORDERED: FOLIC ACID 1 MG, THIAMINE HCL 100 MG, MAGNESIUM SULFATE 1 GM, MVI 10 ML in NACL 0.9% 1,... IV SCH (15:30)
[2023-01-16] MEDS: THIAMINE HCL 100 MG, MAGNESIUM SULFATE 1 GM in NS 100 ML IV SCH (16:39)
[2023-01-16] MEDS: FOLIC ACID 1 MG, MVI 10 ML in NACL 0.9% 1,000 ML IV SCH (16:40)
[2023-01-16] MEDS: ENOXAPARIN SODIUM 30 MG/0.3 ML SYRINGE SUBCUT SCH (20:13)
[2023-01-16] MEDS ORDERED: METOPROLOL TARTRATE 5 MG/5 ML VIAL IVP ONE (21:00)
[2023-01-16] MEDS ORDERED: FUROSEMIDE 20 MG/2 ML VIAL IVP ONE (23:30)
[2023-01-16] MEDS ORDERED: METOPROLOL TARTRATE 5 MG/5 ML VIAL IVP PRN (23:30)
[2023-01-17] VITALS (10 sets, daily range): BP systolic 107–123; PULSE 107–129; RESP 19–20; TEMP 97.7–98.8; O2SAT 88–97
[2023-01-17] MEDS: guaiFENesin/DEXTROMETHORPHAN 10 ML UDC PO PRN (00:11)
[2023-01-17] MEDS: IPRATROPIUM/ALBUTEROL SULFATE 3 ML AMPUL.NEB (DUONEB) INH SCH (02:58)
[2023-01-17] MEDS: NACL 0.9% 1,000 ML IV SCH (03:15)
[2023-01-17] MEDS: PIPERACILLIN/TAZO 4.5GM/DEX-IS 100 ML IV SCH ×3 (06:17→22:27)
[2023-01-17] MEDS: INSULIN NPH 100 UNITS/ML 10 ML VIAL SUBCUT SCH (06:50)
[2023-01-17] MEDS: LevALBUTEROL HCL 1.25 MG/0.5 ML *CONC.* VIAL.NEB (XOPENEX CONC.) INH SCH ×5 (07:24→23:00)
[2023-01-17 07:54] LABS: BASOPHILS % (AUTO) 0.1 % (0.0-2.0); EOSINOPHILS % (AUTO) 0.1 % (0.0-4.0); HEMATOCRIT 32.9 % (36-54); HEMOGLOBIN 10.8 g/dL (14.0-18.0); LYMPHOCYTES # (AUTO) 0.8 K/uL (1.0-5.5); LYMPHOCYTES % (AUTO) 14.7 % (20.5-51.5); MEAN CORPUSCULAR HEMOGLOBIN 36 pg (27-31); MEAN CORPUSCULAR HGB CONC 33 % (32-36); MEAN CORPUSCULAR VOLUME 110 fL (79.0-98.0); MONOCYTES # (AUTO) 0.2 K/uL (0.0-1.0); MONOCYTES % (AUTO) 4.7 % (1.7-9.3); NEUTROPHILS # (AUTO) 4.2 K/uL (1.8-7.7); NEUTROPHILS % (AUTO) 80.4 % (40.0-70.0); PLATELET COUNT (AUTO) 67 K/uL (130-430); RED BLOOD CELL COUNT(AUTO) 2.99 MIL/uL (4.2-6.2); RED CELL DISTRIBUTION WIDTH 13.8 % (9.0-15.0); WHITE BLOOD COUNT (AUTO) 5.2 K/uL (4.8-10.8)
[2023-01-17 08:13] LABS: INR 1.2 (0.80-1.20); PROTHROMBIN TIME 12.1 SECS (9.5-12.5)
[2023-01-17 08:18] LABS: ALANINE AMINOTRANSFERASE 39 U/L (12-78); ALBUMIN 2.6 g/dL (3.4-4.8); ANION GAP 11 (5-15); ASPARTATE AMINOTRANSFERASE 67 U/L (10-37); CALCIUM 7.4 mg/dL (8.4-11.0); CHLORIDE 98 mmol/L (98-107); CREATININE 1.05 mg/dL (0.55-1.30); GFR AFRICAN AMERICAN 90 mL/min (>90); GLUCOSE 150 mg/dL (74-106); TOTAL BILIRUBIN 0.9 mg/dL (0.0-1.0); UREA NITROGEN, BLOOD 21 mg/dL (8-21)
[2023-01-17 08:22] LABS: LIPASE 145 U/L (73-393)
[2023-01-17] MEDS ORDERED: POTASSIUM CHLORIDE 20 MEQ/PKT PACKET PO SCH (09:00)
[2023-01-17] MEDS ORDERED: CARVEDILOL 12.5 MG TABLET (COREG) PO SCH (09:00)
[2023-01-17] MEDS ORDERED: POTASSIUM CHLORIDE 20 MEQ TAB.PRT.SR PO ONE ×2 (09:30→10:30)
[2023-01-17] MEDS: GABAPENTIN 300 MG CAPSULE PO SCH (09:53)
[2023-01-17] MEDS: THIAMINE HCL 100 MG TABLET PO SCH (09:53)
[2023-01-17] MEDS: LORazepam 2 MG/ML VIAL IVP PRN ×3 (09:54→20:48)
[2023-01-17] MEDS: DOXYCYCLINE HYCLATE 100 MG in D5W 100 ML IV SCH ×2 (10:01→21:47)
[2023-01-17] MEDS: INSULIN REGULAR, HUMAN 100 UNITS/ML, 3 ML VIAL (humuLIN R) SUBCUT PRN (11:58)
[2023-01-17] MEDS: POTASSIUM CHLORIDE 20 MEQ TAB.PRT.SR PO SCH ×3 (13:16→20:48)
[2023-01-17] MEDS ORDERED: MEGESTROL ACETATE 400 MG/10 ML UDC PO ONE (15:00)
[2023-01-17] MEDS: FOLIC ACID 1 MG, MVI 10 ML in NACL 0.9% 1,000 ML IV SCH (16:54)
[2023-01-17] MEDS: THIAMINE HCL 100 MG, MAGNESIUM SULFATE 1 GM in NS 100 ML IV SCH (16:54)
[2023-01-17] MEDS: ENOXAPARIN SODIUM 30 MG/0.3 ML SYRINGE SUBCUT SCH (20:48)
[2023-01-17] MEDS: CARVEDILOL 6.25 MG TABLET (COREG) PO SCH (20:48)
[2023-01-17] MEDS ORDERED: MIRTAZAPINE 15 MG TABLET PO SCH (21:00)
[2023-01-18] VITALS (11 sets, daily range): BP systolic 118–135; PULSE 69–105; RESP 12–21; TEMP 97–98; O2SAT 82–96
[2023-01-18] MEDS: LevALBUTEROL HCL 1.25 MG/0.5 ML *CONC.* VIAL.NEB (XOPENEX CONC.) INH SCH ×6 (03:00→23:16)
[2023-01-18 06:10] LABS: BASOPHILS % (AUTO) 0.2 % (0.0-2.0); EOSINOPHILS % (AUTO) 0.1 % (0.0-4.0); HEMATOCRIT 42.9 % (36-54); HEMOGLOBIN 14.4 g/dL (14.0-18.0); LYMPHOCYTES # (AUTO) 0.8 K/uL (1.0-5.5); LYMPHOCYTES % (AUTO) 8.3 % (20.5-51.5); MEAN CORPUSCULAR HEMOGLOBIN 36 pg (27-31); MEAN CORPUSCULAR HGB CONC 34 % (32-36); MEAN CORPUSCULAR VOLUME 109 fL (79.0-98.0); MONOCYTES # (AUTO) 0.3 K/uL (0.0-1.0); MONOCYTES % (AUTO) 3.1 % (1.7-9.3); NEUTROPHILS # (AUTO) 8.7 K/uL (1.8-7.7); NEUTROPHILS % (AUTO) 88.3 % (40.0-70.0); PLATELET COUNT (AUTO) 73 K/uL (130-430); RED BLOOD CELL COUNT(AUTO) 3.95 MIL/uL (4.2-6.2); RED CELL DISTRIBUTION WIDTH 13.8 % (9.0-15.0); WHITE BLOOD COUNT (AUTO) 9.9 K/uL (4.8-10.8)
[2023-01-18 06:29] LABS: PROTHROMBIN TIME 10.5 SECS (9.5-12.5)
[2023-01-18 06:35] LABS: ALBUMIN 2.7 g/dL (3.4-4.8); CREATININE 0.85 mg/dL (0.55-1.30); TOTAL BILIRUBIN 1.4 mg/dL (0.0-1.0)
[2023-01-18] MEDS: INSULIN REGULAR, HUMAN 100 UNITS/ML, 3 ML VIAL (humuLIN R) SUBCUT PRN ×3 (06:36→20:55)
[2023-01-18] MEDS: INSULIN NPH 100 UNITS/ML 10 ML VIAL SUBCUT SCH (06:41)
[2023-01-18] MEDS: POTASSIUM CHLORIDE 20 MEQ TAB.PRT.SR PO SCH ×4 (08:44→20:53)
[2023-01-18] MEDS: CARVEDILOL 6.25 MG TABLET (COREG) PO SCH ×2 (08:45→20:52)
[2023-01-18] MEDS: cefTRIAXone 1 GM in D5W 50 ML IV SCH (08:46)
[2023-01-18] MEDS: MEGESTROL ACETATE 400 MG/10 ML UDC PO SCH (08:46)
[2023-01-18] MEDS: THIAMINE HCL 100 MG TABLET PO SCH (08:46)
[2023-01-18] MEDS: DOXYCYCLINE HYCLATE 100 MG in D5W 100 ML IV SCH ×2 (08:47→20:53)
[2023-01-18] MEDS: THIAMINE HCL 100 MG, MAGNESIUM SULFATE 1 GM in NS 100 ML IV SCH (16:30)
[2023-01-18] MEDS: FOLIC ACID 1 MG, MVI 10 ML in NACL 0.9% 1,000 ML IV SCH (17:37)
[2023-01-18] MEDS: ENOXAPARIN SODIUM 30 MG/0.3 ML SYRINGE SUBCUT SCH (20:52)
[2023-01-18] MEDS: LORazepam 2 MG/ML VIAL IVP PRN (22:05)
[2023-01-19] VITALS (11 sets, daily range): BP systolic 117–140; PULSE 88–113; RESP 18–22; TEMP 97.6–98; O2SAT 82–94
[2023-01-19] MEDS: LevALBUTEROL HCL 1.25 MG/0.5 ML *CONC.* VIAL.NEB (XOPENEX CONC.) INH SCH ×6 (03:00→23:51)
[2023-01-19 05:19] LABS: BASOPHILS % (AUTO) 0.4 % (0.0-2.0); EOSINOPHILS % (AUTO) 0.2 % (0.0-4.0); HEMATOCRIT 40.7 % (36-54); HEMOGLOBIN 13.7 g/dL (14.0-18.0); LYMPHOCYTES # (AUTO) 1.1 K/uL (1.0-5.5); LYMPHOCYTES % (AUTO) 12.1 % (20.5-51.5); MEAN CORPUSCULAR HEMOGLOBIN 37 pg (27-31); MEAN CORPUSCULAR HGB CONC 34 % (32-36); MEAN CORPUSCULAR VOLUME 109 fL (79.0-98.0); MONOCYTES # (AUTO) 0.6 K/uL (0.0-1.0); MONOCYTES % (AUTO) 6.1 % (1.7-9.3); NEUTROPHILS # (AUTO) 7.4 K/uL (1.8-7.7); NEUTROPHILS % (AUTO) 81.2 % (40.0-70.0); PLATELET COUNT (AUTO) 76 K/uL (130-430); RED BLOOD CELL COUNT(AUTO) 3.75 MIL/uL (4.2-6.2); RED CELL DISTRIBUTION WIDTH 13.4 % (9.0-15.0); WHITE BLOOD COUNT (AUTO) 9.1 K/uL (4.8-10.8)
[2023-01-19 05:49] LABS: CALCIUM 8.3 mg/dL (8.4-11.0); CREATININE 0.78 mg/dL (0.55-1.30)
[2023-01-19] MEDS: INSULIN REGULAR, HUMAN 100 UNITS/ML, 3 ML VIAL (humuLIN R) SUBCUT PRN ×4 (06:12→20:46)
[2023-01-19] MEDS: INSULIN NPH 100 UNITS/ML 10 ML VIAL SUBCUT SCH (06:15)
[2023-01-19] MEDS: DOXYCYCLINE HYCLATE 100 MG in D5W 100 ML IV SCH ×2 (09:08→20:44)
[2023-01-19] MEDS: cefTRIAXone 1 GM in D5W 50 ML IV SCH (09:08)
[2023-01-19] MEDS: MEGESTROL ACETATE 400 MG/10 ML UDC PO SCH (09:09)
[2023-01-19] MEDS: THIAMINE HCL 100 MG TABLET PO SCH (09:09)
[2023-01-19] MEDS: POTASSIUM CHLORIDE 20 MEQ TAB.PRT.SR PO SCH ×4 (09:13→20:43)
[2023-01-19] MEDS: CARVEDILOL 6.25 MG TABLET (COREG) PO SCH ×2 (09:14→20:43)
[2023-01-19] MEDS: THIAMINE HCL 100 MG, MAGNESIUM SULFATE 1 GM in NS 100 ML IV SCH (16:19)
[2023-01-19] MEDS: FOLIC ACID 1 MG, MVI 10 ML in NACL 0.9% 1,000 ML IV SCH (16:19)
[2023-01-19] MEDS: metFORMIN HCL 500 MG TABLET PO SCH (18:00)
[2023-01-19] MEDS: LORazepam 2 MG/ML VIAL IVP PRN (23:32)
[2023-01-20] VITALS (9 sets, daily range): BP systolic 111–140; PULSE 89–120; RESP 16–20; TEMP 97–98.4; O2SAT 90–98
[2023-01-20] MEDS: LevALBUTEROL HCL 1.25 MG/0.5 ML *CONC.* VIAL.NEB (XOPENEX CONC.) INH SCH ×4 (03:00→15:45)
[2023-01-20 05:07] LABS: BASOPHILS % (AUTO) 0.2 % (0.0-2.0); EOSINOPHILS # (AUTO) 0.1 K/uL (0.0-0.4); EOSINOPHILS % (AUTO) 1.7 % (0.0-4.0); HEMATOCRIT 40.7 % (36-54); HEMOGLOBIN 13.7 g/dL (14.0-18.0); LYMPHOCYTES % (AUTO) 18.1 % (20.5-51.5); MEAN CORPUSCULAR HEMOGLOBIN 37 pg (27-31); MEAN CORPUSCULAR HGB CONC 34 % (32-36); MEAN CORPUSCULAR VOLUME 108 fL (79.0-98.0); MONOCYTES # (AUTO) 0.8 K/uL (0.0-1.0); MONOCYTES % (AUTO) 15.7 % (1.7-9.3); NEUTROPHILS # (AUTO) 3.5 K/uL (1.8-7.7); NEUTROPHILS % (AUTO) 64.3 % (40.0-70.0); PLATELET COUNT (AUTO) 79 K/uL (130-430); RED BLOOD CELL COUNT(AUTO) 3.76 MIL/uL (4.2-6.2); RED CELL DISTRIBUTION WIDTH 13.5 % (9.0-15.0); WHITE BLOOD COUNT (AUTO) 5.4 K/uL (4.8-10.8)
[2023-01-20] MEDS: INSULIN REGULAR, HUMAN 100 UNITS/ML, 3 ML VIAL (humuLIN R) SUBCUT PRN (06:23)
[2023-01-20] MEDS: INSULIN NPH 100 UNITS/ML 10 ML VIAL SUBCUT SCH (06:25)
[2023-01-20 06:37] LABS: ALBUMIN 2.3 g/dL (3.4-4.8); CALCIUM 8.4 mg/dL (8.4-11.0); CREATININE 0.68 mg/dL (0.55-1.30); TOTAL BILIRUBIN 1.2 mg/dL (0.0-1.0)
[2023-01-20] MEDS: metFORMIN HCL 500 MG TABLET PO SCH (08:00)
[2023-01-20] MEDS: LORazepam 2 MG/ML VIAL IVP PRN (08:50)
[2023-01-20] MEDS: THIAMINE HCL 100 MG TABLET PO SCH (09:00)
[2023-01-20] MEDS: CARVEDILOL 6.25 MG TABLET (COREG) PO SCH (09:00)
[2023-01-20] MEDS: POTASSIUM CHLORIDE 20 MEQ TAB.PRT.SR PO SCH (09:00)
[2023-01-20] MEDS: MEGESTROL ACETATE 400 MG/10 ML UDC PO SCH (09:00)
[2023-01-20] MEDS: cefTRIAXone 1 GM in D5W 50 ML IV SCH (10:42)
[2023-01-20] MEDS ORDERED: COR6.25 PO (16:27)
[2023-01-20] MEDS ORDERED: DOXY100C5 PO (16:27)
[2023-01-20] MEDS ORDERED: THIA50TA10 PO (16:27)
[2023-01-20] MEDS ORDERED: BLOO-1360 XX (16:27)
[2023-01-20] MEDS ORDERED: THIA100T73 PO (16:27)
[2023-01-20] MEDS ORDERED: ROCPM1 IV (16:27)
[2023-01-20] MEDS ORDERED: DOXY-244 PO (16:27)
[2023-01-20] MEDS ORDERED: Potassium Chloride PO (16:32)
[2023-01-20] MEDS ORDERED: INSU100V7 SUBCUT (16:32)
[2023-01-20] MEDS ORDERED: SSNPH SUBCUT (16:32)
[2023-01-20] MEDS ORDERED: METF-379 PO (16:32)
[2023-01-20] MEDS ORDERED: MULT-1117 PO (16:32)
== END 2023-01-20 17:49 | DRG 871 ==
LOC: SED 11:43 → STU 16:50
PROVIDERS: ADMIT Internal Medicine; ATTEND Internal Medicine
DX: A41.9 Sepsis, unspecified organism (principal); J69.0 Pneumonitis due to inhalation of food and vomit; I42.0 Dilated cardiomyopathy; E44.0 Moderate protein-calorie malnutrition; I13.0 Hypertensive heart and chronic kidney disease with heart failure and stage 1 through stage 4 chronic kidney disease, or unspecified chronic kidney disease; N17.9 Acute kidney failure, unspecified; E87.20 Acidosis, unspecified; D69.6 Thrombocytopenia, unspecified; E03.9 Hypothyroidism, unspecified; I48.0 Paroxysmal atrial fibrillation; E87.6 Hypokalemia; E86.0 Dehydration; F10.10 Alcohol abuse, uncomplicated; Y90.9 Presence of alcohol in blood, level not specified; K74.60 Unspecified cirrhosis of liver; J06.9 Acute upper respiratory infection, unspecified; Z20.822 Contact with and (suspected) exposure to COVID-19; I50.9 Heart failure, unspecified; N18.2 Chronic kidney disease, stage 2 (mild); E11.22 Type 2 diabetes mellitus with diabetic chronic kidney disease; Z88.6 Allergy status to analgesic agent; Z88.5 Allergy status to narcotic agent; Z88.2 Allergy status to sulfonamides; Z88.8 Allergy status to other drugs, medicaments and biological substances; Z79.899 Other long term (current) drug therapy; Z95.810 Presence of automatic (implantable) cardiac defibrillator; Z87.891 Personal history of nicotine dependence; Z68.20 Body mass index [BMI] 20.0-20.9, adult
CPT/HCPCS: 36415; 36600; 70450-TC; 70491-TC; 71045; 76376; 80048; 80053; 80061; 80307; 81000; 82140; 82803; 82962; 83037; 83605; 83690; 83735; 83880; 84100; 84439; 84443; 84484; 85025; 85610-TC; 85730-TC; 86403; 87040; 87081; 87086; 92610-GN; 93005; 93306; 94640; 94760; 95816; 97110-GP; 97163-GP; 97530-GP; 99291; G0378; G0480; G0481; G0482; J0696; J1200; J1644; J1650; J1815; J1885; J1940; J2060; J2405; J2543; J2930; J3411; J3475; J3490; J7030; J7040; J7050; J7060; J7120; J7612; Q9967